=== PATIENT | male | born 1930 | race Caucasian/White ===

== ENCOUNTER 2017-01-06 08:18 | Inpatient (IN) | payer MEDICARE ==
[~2017-01-06] VITALS: Ht 170.2 cm; Wt 69.9 kg
[2017-01-06 08:49] LABS: BASO # 0.1 x10^3/uL (0.0-0.2); BASO % 1 % (0-3); EOS # 0.3 x10^3/uL (0.0-0.7); EOS % 3 % (0-3); HEMATOCRIT 24.8 % (39.0-53.0); HEMOGLOBIN 8.2 g/dL (13.0-17.5); LYMPH # 1.4 x10^3/uL (1.0-4.8); LYMPH % 17 % (24-48); MEAN CORPUSCULAR HEMOGLOBIN 30 pg (25-35); MEAN CORPUSCULAR HGB CONC 33 g/dL (31-37); MEAN CORPUSCULAR VOLUME 92 fL (79-100); MONO # 0.5 x10^3/uL (0.0-1.1); MONO % 7 % (0-9); NEUT # 5.8 x10^3uL (1.8-7.7); NEUT % 71 % (31-73); PLATELET COUNT 324 x10^3/uL (140-400); RED BLOOD COUNT 2.71 x10^6/uL (4.30-5.70); RED CELL DISTRIBUTION WIDTH 16.9 % (11.5-14.5); WHITE BLOOD COUNT 8.2 x10^3/uL (4.0-11.0)
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
--- NOTE | 2017-01-06 08:56 | EKG ---
[address] [address] Test Date: 2017-01-06 Test Time: 08:35:18 Pat Name: NICKY DEE Department: Room: Gender: M Remote Ruby On Rails Developer: : [id number] Requested By: RHONDA SPRINGER Order Number: [id number] Reading MD: Vitor Cohen Measurements Intervals [place] Rate: 54 P: 0 MN: 172 QRS: -48 QRSD: 110 T: 19 QT: 444 QTc: 423 Interpretive Statements SINUS RHYTHM ABNORMAL LEFT AXIS DEVIATION LOW LIMB LEAD VOLTAGE LEFT ANTERIOR FASCICULAR BLOCK QRS(T) CONTOUR ABNORMALITY CONSIDER ANTEROSEPTAL MYOCARDIAL DAMAGE ABNORMAL ECG RI6.01 No previous ECG available for comparison Electronically Signed On 01-24-2017 10:46:34 CDT by Vitor Cohen
[2017-01-06 09:01] LABS: ALBUMIN 2.5 g/dL (3.4-5.0); ALBUMIN/GLOBULIN RATIO 0.9 (1.0-1.7); CALCIUM 8.1 mg/dL (8.5-10.1); GFR 31.8; MAGNESIUM 1.9 mg/dL (1.8-2.4); POTASSIUM 5.4 mmol/L (3.5-5.1); TOTAL BILIRUBIN 0.2 mg/dL (0.2-1.0); TOTAL PROTEIN 5.4 g/dL (6.4-8.2)
[2017-01-06] MEDS ORDERED: ALLO100T PO (09:13)
[2017-01-06] MEDS ORDERED: FINA5TAB4 PO (09:13)
[2017-01-06] MEDS ORDERED: ASCO500T3 PO (09:13)
[2017-01-06] MEDS ORDERED: MIRT30TA3 PO (09:13)
[2017-01-06] MEDS ORDERED: RISP1TAB3 PO (09:13)
[2017-01-06] MEDS ORDERED: COLE5PAC3 PO (09:13)
[2017-01-06] MEDS ORDERED: IV NORMAL SALINE 500ML 500 ML IV ONE (09:30)
[2017-01-06] MEDS ORDERED: MAG355OR12 PO (09:32)
[2017-01-06] MEDS ORDERED: ACET325T9 PO (09:32)
[2017-01-06] MEDS ORDERED: METH250T PO (09:32)
[2017-01-06] MEDS ORDERED: MAGN400O7 PO (09:32)
[2017-01-06] MEDS ORDERED: WARF-78 PO (09:32)
[2017-01-06] MEDS ORDERED: SILV20CR14 TP (09:32)
[2017-01-06] MEDS ORDERED: IPRA3AMP NEB (09:32)
[2017-01-06] MEDS ORDERED: SERT25TA PO (09:32)
[2017-01-06] MEDS ORDERED: BISA10SU55 RC (09:32)
[2017-01-06] MEDS ORDERED: NITR0.4T22 SL (09:32)
[2017-01-06] MEDS ORDERED: MULT1TAB52 PO (09:32)
[2017-01-06] MEDS ORDERED: TAMS0.4C97 PO (09:32)
[2017-01-06] MEDS ORDERED: AMIN30LI PO (09:59)
[2017-01-06] MEDS ORDERED: SODIUM POLYSTYRENE SULFONATE 15 GM/60 ML ORAL.SUSP. PO ONE (10:00)
[2017-01-06 10:41] LABS: BILIRUBIN,URINE NEG (NEG); CLARITY,URINE HAZY; COLOR,URINE YELLOW; GLUCOSE,URINE NEG (NEG); NITRITE,URINE NEG (NEG); RBC,URINE RARE /HPF (0-2); UROBILINOGEN,URINE 0.2 mg/dL (0.2 mg/dL)
[2017-01-06 10:42] LABS: BACTERIA,URINE 0 /HPF (0-FEW); SQUAMOUS EPITHELIAL CELL,UR OCC /LPF
[2017-01-06 11:35] VITALS: BP 132/54
[2017-01-06] MEDS ORDERED: BISACODYL 10 MG SUPP.RECT RC PRN (12:45)
[2017-01-06] MEDS ORDERED: IPRATRPIUM/ALBUTEROL 0.5/2.5MG 3 ML NEBU. NEB PRN (12:45)
[2017-01-06] MEDS ORDERED: MAGNESIUM HYDROXIDE 2,400 MG/30 ML ORAL.SUSP. PO PRN (12:45)
[2017-01-06] MEDS ORDERED: NITROGLYCERIN SUBLINGUAL 0.4 MG BOTTLE OF 25. SL PRN (12:45)
[2017-01-06] MEDS ORDERED: ACETAMINOPHEN 325 MG TABLET PO PRN (12:45)
[2017-01-06] MEDS ORDERED: MAG HYDROX/AL HYDROX/SIMETH 30 ML ORAL.SUSP PO PRN (12:45)
[2017-01-06] MEDS ORDERED: WARFARIN 5 MG TABLET. PO SCH (16:00)
[2017-01-06 16:36] VITALS: BP 175/71
[2017-01-06] MEDS: ASCORBIC ACID 500 MG TABLET PO SCH (19:33)
[2017-01-06] MEDS: risperiDONE 1 MG TABLET. PO SCH (19:33)
[2017-01-06] MEDS: COLESTIPOL HCL 1 GM TABLET PO SCH (19:33)
[2017-01-06] MEDS: MIRTAZAPINE 30 MG TABLET PO SCH (19:33)
[2017-01-06] MEDS: silver sulfADIAZINE 1% CREAM 50GM JAR. TP SCH (21:00)
[2017-01-06] MEDS: METHYLDOPA 250 MG TABLET PO SCH (21:00)
--- NOTE | 2017-01-06 22:55 | PDOC ---
Exam Gonzales Demential Exam: Gonzales Note: Please also refer to the separate dictated note~for this date of service dictated separately.~Patient seen individually. Discussed the patient with Nursing staff reviewed the chart.~Reviewed interim history and current functioning. Reviewed vital signs,~Labs/ Radiology~and current medications noted below. Continue current treatment with the changes noted in the dictated addendum note Assessment: Vital Signs: Vital Signs Date Time Temp Pulse Resp B/P (MAP) Pulse Ox O2 Delivery O2 Flow Rate FiO2 01/06/17 16:36 98.0 77 18 175/71 (105) 98 01/06/17 08:20 Room Air I&O Intake and Output 01/07/17 07:00 Intake Total 1100 ml Balance 1100 ml Intake Oral 600 ml IV Total 500 ml Labs: Laboratory Tests Test 01/06/17 08:25 01/06/17 09:50 White Blood Count 8.2 x10^3/uL (4.0-11.0) Red Blood Count 2.71 x10^6/uL (4.30-5.70) L Hemoglobin 8.2 g/dL (13.0-17.5) L Hematocrit 24.8 % (39.0-53.0) L Mean Corpuscular Volume 92 fL (79-100) Mean Corpuscular Hemoglobin 30 pg (25-35) Mean Corpuscular Hemoglobin Concent 33 g/dL (31-37) Red Cell Distribution Width 16.9 % (11.5-14.5) H Platelet Count 324 x10^3/uL (140-400) Neutrophils (%) (Auto) 71 % (31-73) Lymphocytes (%) (Auto) 17 % (24-48) L Monocytes (%) (Auto) 7 % (0-9) Eosinophils (%) (Auto) 3 % (0-3) Basophils (%) (Auto) 1 % (0-3) Neutrophils # (Auto) 5.8 x10^3uL (1.8-7.7) Lymphocytes # (Auto) 1.4 x10^3/uL (1.0-4.8) Monocytes # (Auto) 0.5 x10^3/uL (0.0-1.1) Eosinophils # (Auto) 0.3 x10^3/uL (0.0-0.7) Basophils # (Auto) 0.1 x10^3/uL (0.0-0.2) Prothrombin Time 34.6 SEC (9.4-11.4) H Prothrombin Time INR 3.4 (0.9-1.1) H Sodium Level 141 mmol/L (136-145) Potassium Level 5.4 mmol/L (3.5-5.1) H Chloride Level 111 mmol/L (98-107) H Carbon Dioxide Level 21 mmol/L (21-32) Anion Gap 9 (6-14) Blood Urea Nitrogen 35 mg/dL (8-26) H Creatinine 2.0 mg/dL (0.7-1.3) H Estimated GFR (Cockcroft-Gault) 31.8 BUN/Creatinine Ratio 18 (6-20) Glucose Level 85 mg/dL (70-99) Calcium Level 8.1 mg/dL (8.5-10.1) L Magnesium Level 1.9 mg/dL (1.8-2.4) Iron Level 33 ug/dL (65-175) L Total Iron Binding Capacity 165 ug/dL (250-450) L Iron Saturation 20 % (15-34) Total Bilirubin 0.2 mg/dL (0.2-1.0) Aspartate Amino Transferase (AST) 31 U/L (15-37) Alanine Aminotransferase (ALT) 12 U/L (16-63) L Alkaline Phosphatase 71 U/L (46-116) Total Protein 5.4 g/dL (6.4-8.2) L Albumin 2.5 g/dL (3.4-5.0) L Albumin/Globulin Ratio 0.9 (1.0-1.7) L Thyroid Stimulating Hormone (TSH) 4.683 uIU/mL (0.358-3.740) Urine Collection Type Void Urine Color Yellow Urine Clarity Hazy Urine pH 5.0 Urine Specific [place] 1.010 Urine Protein Neg (NEG-TRACE) Urine Glucose (UA) Neg mg/dL (NEG) Urine Ketones (Stick) Neg mg/dL (NEG) Urine Blood Neg (NEG) Urine Nitrite Neg (NEG) Urine Bilirubin Neg (NEG) Urine Urobilinogen Dipstick 0.2 mg/dL (0.2 mg/dL) Urine Leukocyte Esterase Small (NEG) Urine RBC Rare /HPF (0-2) Urine WBC 5-10 /HPF (0-4) Urine Squamous Epithelial Cells Occ /LPF Urine Bacteria 0 /HPF (0-FEW) Current Medications: Meds: Current Medications Sodium Chloride 500 ml @ 0 mls/hr 1X ONCE IV Last administered on 01/06/17 09 :45; Start 01/06/17 at 09:30; Stop 01/06/17 at 09:55; Status DC Sodium Polystyrene Sulfonate (Kayexalate) 15 gm 1X ONCE PO Last administered on 01/06/17 10:40; Start 01/06/17 at 10:00; Stop 01/06/17 at 10:01; Status DC Influenza Virus Vaccine Quadrival (Fluarix Quad [id number] Syringe) 0.5 ml 1X ONCE VAX IM ; Start 01/07/17 at 09:00; Stop 01/07/17 at 09:01 Olanzapine (ZyPREXA ZYDIS) 2.5 mg PRN Q2HR PRN PO Agitation ; Start 01/06/17 at 12:30 Acetaminophen (Tylenol) 650 mg PRN Q4HRS PRN PO PAIN / TEMP; Start 01/06/17 at 12:45 Allopurinol (Zyloprim) 100 mg DAILY PO ; Start 01/07/17 at 09:00 Ascorbic Acid (Vitamin C) 500 mg BID PO Last administered on 01/06/17 19:33; Start 01/06/17 at 21:00 Bisacodyl (Dulcolax Supp) 10 mg PRN DAILY PRN RC CONSTIPATION; Start 01/06/17 at 12:45 Finasteride (Proscar) 5 mg DAILY PO ; Start 01/07/17 at 09:00 Albuterol/ Ipratropium (Duoneb) 3 ml PRN TID PRN NEB WHEEZING; Start 01/06/17 at 12:45 Al Hydroxide/Mg Hydroxide (Mylanta Plus Xs) 10 ml PRN Q2HR PRN PO INDIGESTION; Start 01/06/17 at 12:45 Magnesium Hydroxide (Milk Of Magnesia) 400 mg PRN QHS PRN PO CONSTIPATION; Start 01/06/17 at 12:45 Methyldopa (Aldomet) 500 mg BID PO ; Start 01/06/17 at 21:00 Nitroglycerin (Nitrostat) 0.4 mg PRN Q5MIN PRN SL CHEST PAIN; Start 01/06/17 at 12:45 Silver Sulfadiazine (Silvadene) 1 zoe BID TP ; Start 01/06/17 at 21:00 Tamsulosin HCl (Flomax) 0.4 mg DAILY PO ; Start 01/07/17 at 09:00 Warfarin Sodium (Coumadin) 5 mg DAILY16 PO ; Start 01/06/17 at 16:00; Stop 01/06 at 16:00; Status DC Non-Formulary Medication 30 ml DAILY PO ; Start 01/07/17 at 09:00; Stop at 09:00; Status DC Colestipol HCl (Colestid) 5 gm BID PO Last administered on 01/06/17 19:33; Start 01/06/17 at 21:00 Mirtazapine (Remeron) 30 mg QHS PO Last administered on 01/06/17 19:33; Start 01/06/17 at 21:00 Risperidone (RisperDAL) 1 mg BID PO Last administered on 01/06/17 19:33; Start 01/06/17 at 21:00 Sertraline HCl (Zoloft) 50 mg DAILY PO ; Start 01/07/17 at 09:00 Multivitamins/ Calcium (Thera-M Plus) 1 tab DAILY PO ; Start 01/07/17 at 09:00 Active Scripts Active Reported Prosource Plus Liquid Packet (Amino Ac/Protein Hydr/Whey Pro) 30 Ml Liquid.pkt 30 Ml PO DAILY Dulcolax (Bisacodyl) 10 Mg Supp.rect 10 Mg RC PRN DAILY PRN Silvadene (Silver Sulfadiazine) 20 Gm Cream..g. 20 Gm TP BID NITROGLYCERIN SubLingual (Nitroglycerin) 0.4 Mg Tab.subl 0.4 Mg SL PRN Q5MIN PRN May repeat x3 doses Maalox Maximum Strength Susp (Mag Hydrox/Al Hydrox/Simeth) 355 Ml Oral.susp 10 Ml PO PRN Q2HR PRN Duoneb 0.5-3(2.5) Mg/3 Ml (Albuterol/Ipratropium) 3 Ml Ampul.neb 3 Ml NEB PRN TID PRN Milk Of Magnesia (Magnesium Hydroxide) 400 Mg/5 Ml Oral.susp 400 Mg PO PRN Q3DAYS PRN Tylenol (Acetaminophen) 325 Mg Tablet 650 Mg PO PRN Q4HRS PRN Coumadin (Warfarin Sodium) 5 Mg Tablet 5 Mg PO DAILY16 Multivitamins (Multivitamin) 1 Each Tablet 1 Each PO Zoloft (Sertraline Hcl) 25 Mg Tablet 50 Mg PO DAILY Flomax (Tamsulosin Hcl) 0.4 Mg Cap.er.24h 1 Cap PO DAILY Methyldopa 250 Mg Tablet 500 Mg PO BID Hold for SBP <110 or pulse < 55 Mirtazapine 30 Mg Tablet 1 Tab PO QHS Finasteride 5 Mg Tablet 1 Tab PO DAILY Allopurinol 100 Mg Tablet 1 Tab PO DAILY Ascorbic Acid 500 Mg Tablet 500 Mg PO BID Colestipol Hcl 5 Gm Packet 5 Gm PO BID Risperidone 1 Mg Tablet 1 Tab PO BID Diagnosis: Problems: (1) Aggressive behavior (2) Hyperkalemia DIANE KABA MD Jan 06, 2017 22:55
[2017-01-06 23:11] LABS: T3 TOTAL 58 ng/dL (71-180); THYROXINE 5.1 ug/dL (4.5-12.0)
[2017-01-07 00:08] LABS: HEMOGLOBIN A1C 4.6 % (4.8-5.6)
[2017-01-07 05:53] VITALS: BP 155/63
[2017-01-07 07:43] LABS: ALBUMIN 2.5 g/dL (3.4-5.0); ALBUMIN/GLOBULIN RATIO 0.8 (1.0-1.7); GFR 31.8; POTASSIUM 4.8 mmol/L (3.5-5.1); TOTAL BILIRUBIN 0.3 mg/dL (0.2-1.0); TOTAL PROTEIN 5.6 g/dL (6.4-8.2)
[2017-01-07] MEDS ORDERED: PROTEIN HYDR PO SCH (09:00)
[2017-01-07] MEDS ORDERED: [UNRECOGNIZED DRUG - OTHER] PO SCH (09:00)
[2017-01-07] MEDS ORDERED: FLU VACC QS2017-18 (36MOS+)/PF 0.5 ML SYRINGE. VAX IM ONE (09:00)
[2017-01-07] MEDS ORDERED: WHEY PRO PO SCH (09:00)
[2017-01-07] MEDS ORDERED: AMINO AC PO SCH (09:00)
[2017-01-07] MEDS: ASCORBIC ACID 500 MG TABLET PO SCH ×2 (09:28→19:46)
[2017-01-07] MEDS: COLESTIPOL HCL 1 GM TABLET PO SCH ×2 (09:28→19:45)
[2017-01-07] MEDS: risperiDONE 1 MG TABLET. PO SCH ×2 (09:28→19:45)
[2017-01-07] MEDS: ALLOPURINOL 100 MG TABLET. PO SCH (09:31)
[2017-01-07] MEDS: SERTRALINE 50 MG TABLET. PO SCH (09:31)
[2017-01-07] MEDS: TAMSULOSIN 0.4 MG CAP.ER.24H. PO SCH (09:31)
[2017-01-07] MEDS: MULTIVITAMIN with MINERAL TABLET. PO SCH (09:31)
[2017-01-07] MEDS: FINASTERIDE 5 MG TABLET PO SCH (09:31)
[2017-01-07] MEDS: METHYLDOPA 250 MG TABLET PO SCH ×2 (09:33→19:42)
[2017-01-07] MEDS: silver sulfADIAZINE 1% CREAM 50GM JAR. TP SCH ×2 (09:33→19:50)
[2017-01-07 16:29] VITALS: BP 138/68
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
[2017-01-07] MEDS: MIRTAZAPINE 30 MG TABLET PO SCH (19:46)
[2017-01-07] MEDS: DIVALPROEX ER 250 MG TAB.ER.24H. PO SCH (19:47)
--- NOTE | 2017-01-07 21:00 | PDOC ---
Exam Gonzales Demential Exam: Gonzales Note: Please also refer to the separate dictated note~for this date of service dictated separately.~Patient seen individually. Discussed the patient with Nursing staff reviewed the chart.~Reviewed interim history and current functioning. Reviewed vital signs,~Labs/ Radiology~and current medications noted below. Continue current treatment with the changes noted in the dictated addendum note Assessment: Vital Signs: Vital Signs Date Time Temp Pulse Resp B/P (MAP) Pulse Ox O2 Delivery O2 Flow Rate FiO2 01/07/17 19:42 80 138/68 01/07/17 16:29 97.6 16 93 01/07/17 05:53 Room Air I&O Intake and Output 01/08/17 07:00 Intake Total 960 ml Balance 960 ml Intake Oral 960 ml Labs: Laboratory Tests Test 01/07/17 06:44 01/07/17 11:18 Sodium Level 141 mmol/L (136-145) Potassium Level 4.8 mmol/L (3.5-5.1) Chloride Level 112 mmol/L (98-107) H Carbon Dioxide Level 21 mmol/L (21-32) Anion Gap 8 (6-14) Blood Urea Nitrogen 33 mg/dL (8-26) H Creatinine 2.0 mg/dL (0.7-1.3) H Estimated GFR (Cockcroft-Gault) 31.8 BUN/Creatinine Ratio 17 (6-20) Glucose Level 89 mg/dL (70-99) Calcium Level 8.0 mg/dL (8.5-10.1) L Total Bilirubin 0.3 mg/dL (0.2-1.0) Aspartate Amino Transferase (AST) 15 U/L (15-37) Alanine Aminotransferase (ALT) 14 U/L (16-63) L Alkaline Phosphatase 69 U/L (46-116) Total Protein 5.6 g/dL (6.4-8.2) L Albumin 2.5 g/dL (3.4-5.0) L Albumin/Globulin Ratio 0.8 (1.0-1.7) L Triglycerides Level 83 mg/dL (0-150) Cholesterol Level 114 mg/dL (0-200) LDL Cholesterol, Calculated 39 mg/dL (0-100) VLDL Cholesterol, Calculated 16 mg/dL (0-40) Non-HDL Cholesterol Calculated 55 mg/dL (0-129) HDL Cholesterol 59 mg/dL (40-60) Cholesterol/HDL Ratio 1.0 Prothrombin Time 33.2 SEC (9.4-11.4) H Prothrombin Time INR 3.3 (0.9-1.1) H Current Medications: Meds: Current Medications Sodium Chloride 500 ml @ 0 mls/hr 1X ONCE IV Last administered on 01/06/17 09 :45; Start 01/06/17 at 09:30; Stop 01/06/17 at 09:55; Status DC Sodium Polystyrene Sulfonate (Kayexalate) 15 gm 1X ONCE PO Last administered on 01/06/17 10:40; Start 01/06/17 at 10:00; Stop 01/06/17 at 10:01; Status DC Influenza Virus Vaccine Quadrival (Fluarix Quad [id number] Syringe) 0.5 ml 1X ONCE VAX IM Last administered on 01/07/17 18:12; Start 01/07/17 at 09:00; Stop 01/07/17 at 09:01; Status DC Olanzapine (ZyPREXA ZYDIS) 2.5 mg PRN Q2HR PRN PO Agitation ; Start 01/06/17 at 12:30 Acetaminophen (Tylenol) 650 mg PRN Q4HRS PRN PO PAIN / TEMP; Start 01/06/17 at 12:45 Allopurinol (Zyloprim) 100 mg DAILY PO Last administered on 01/07/17 09:31; Start 01/07/17 at 09:00 Ascorbic Acid (Vitamin C) 500 mg BID PO Last administered on 01/07/17 19:46; Start 01/06/17 at 21:00 Bisacodyl (Dulcolax Supp) 10 mg PRN DAILY PRN RC CONSTIPATION; Start 01/06/17 at 12:45 Finasteride (Proscar) 5 mg DAILY PO Last administered on 01/07/17 09:31; Start 01/07/17 at 09:00 Albuterol/ Ipratropium (Duoneb) 3 ml PRN TID PRN NEB WHEEZING; Start 01/06/17 at 12:45 Al Hydroxide/Mg Hydroxide (Mylanta Plus Xs) 10 ml PRN Q2HR PRN PO INDIGESTION; Start 01/06/17 at 12:45 Magnesium Hydroxide (Milk Of Magnesia) 400 mg PRN QHS PRN PO CONSTIPATION; Start 01/06/17 at 12:45 Methyldopa (Aldomet) 500 mg BID PO Last administered on 01/07/17 19:42; Start 01/06/17 at 21:00 Nitroglycerin (Nitrostat) 0.4 mg PRN Q5MIN PRN SL CHEST PAIN; Start 01/06/17 at 12:45 Silver Sulfadiazine (Silvadene) 1 zoe BID TP Last administered on 01/07/17 19: 50; Start 01/06/17 at 21:00 Tamsulosin HCl (Flomax) 0.4 mg DAILY PO Last administered on 01/07/17 09:31; Start 01/07/17 at 09:00 Warfarin Sodium (Coumadin) 5 mg DAILY16 PO ; Start 01/06/17 at 16:00; Stop 01/06 at 16:00; Status DC Non-Formulary Medication 30 ml DAILY PO ; Start 01/07/17 at 09:00; Stop at 09:00; Status DC Colestipol HCl (Colestid) 5 gm BID PO Last administered on 01/07/17 19:45; Start 01/06/17 at 21:00 Mirtazapine (Remeron) 30 mg QHS PO Last administered on 01/07/17 19:46; Start 01/06/17 at 21:00 Risperidone (RisperDAL) 1 mg BID PO Last administered on 01/07/17 19:45; Start 01/06/17 at 21:00 Sertraline HCl (Zoloft) 50 mg DAILY PO Last administered on 01/07/17 09:31; Start 01/07/17 at 09:00 Multivitamins/ Calcium (Thera-M Plus) 1 tab DAILY PO Last administered on 09:31; Start 01/07/17 at 09:00 Warfarin Sodium (Coumadin Per Pharmacy) 1 each PRN DAILY PRN MC SEE COMMENTS Last administered on 01/07/17 11:46; Start 01/07/17 at 11:00 Warfarin Sodium (Coumadin - No Dose Today) 1 each 1X WARF ONCE MC Last administered on 01/07/17 16:00; Start 01/07/17 at 16:00; Stop 01/07/17 at 16:01 ; Status DC Levothyroxine Sodium (Synthroid) 25 mcg DAILY07 PO ; Start 01/08/17 at 07:00 Divalproex Sodium (Depakote Er) 250 mg QHS PO Last administered on 01/07/17t 19 :47; Start 01/07/17 at 21:00 Active Scripts Active Reported Prosource Plus Liquid Packet (Amino Ac/Protein Hydr/Whey Pro) 30 Ml Liquid.pkt 30 Ml PO DAILY Dulcolax (Bisacodyl) 10 Mg Supp.rect 10 Mg RC PRN DAILY PRN Silvadene (Silver Sulfadiazine) 20 Gm Cream..g. 20 Gm TP BID NITROGLYCERIN SubLingual (Nitroglycerin) 0.4 Mg Tab.subl 0.4 Mg SL PRN Q5MIN PRN May repeat x3 doses Maalox Maximum Strength Susp (Mag Hydrox/Al Hydrox/Simeth) 355 Ml Oral.susp 10 Ml PO PRN Q2HR PRN Duoneb 0.5-3(2.5) Mg/3 Ml (Albuterol/Ipratropium) 3 Ml Ampul.neb 3 Ml NEB PRN TID PRN Milk Of Magnesia (Magnesium Hydroxide) 400 Mg/5 Ml Oral.susp 400 Mg PO PRN Q3DAYS PRN Tylenol (Acetaminophen) 325 Mg Tablet 650 Mg PO PRN Q4HRS PRN Coumadin (Warfarin Sodium) 5 Mg Tablet 5 Mg PO DAILY16 Multivitamins (Multivitamin) 1 Each Tablet 1 Each PO Zoloft (Sertraline Hcl) 25 Mg Tablet 50 Mg PO DAILY Flomax (Tamsulosin Hcl) 0.4 Mg Cap.er.24h 1 Cap PO DAILY Methyldopa 250 Mg Tablet 500 Mg PO BID Hold for SBP <110 or pulse < 55 Mirtazapine 30 Mg Tablet 1 Tab PO QHS Finasteride 5 Mg Tablet 1 Tab PO DAILY Allopurinol 100 Mg Tablet 1 Tab PO DAILY Ascorbic Acid 500 Mg Tablet 500 Mg PO BID Colestipol Hcl 5 Gm Packet 5 Gm PO BID Risperidone 1 Mg Tablet 1 Tab PO BID Diagnosis: Problems: (1) Aggressive behavior (2) Bipolar affective, mixed, sev w/ psych (3) Anxiety disorder (4) Dementia, vascular, with delusions (5) Dementia, vascular, with depression (6) Major depressive disorder, recurrent episode (7) Psychotic depression (8) Impulse control disorder SENDY,MAN M MD Jan 07, 2017 21:00
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
[2017-01-08 05:40] VITALS: BP 168/63
[2017-01-08] MEDS: LEVOTHYROXINE 25 MCG TABLET. PO SCH (06:37)
[2017-01-08] MEDS: TAMSULOSIN 0.4 MG CAP.ER.24H. PO SCH (09:31)
[2017-01-08] MEDS: METHYLDOPA 250 MG TABLET PO SCH ×2 (09:31→22:52)
[2017-01-08] MEDS: FINASTERIDE 5 MG TABLET PO SCH (09:31)
[2017-01-08] MEDS: ASCORBIC ACID 500 MG TABLET PO SCH ×2 (09:31→22:50)
[2017-01-08] MEDS: risperiDONE 1 MG TABLET. PO SCH ×2 (09:31→22:50)
[2017-01-08] MEDS: SERTRALINE 50 MG TABLET. PO SCH (09:31)
[2017-01-08] MEDS: MULTIVITAMIN with MINERAL TABLET. PO SCH (09:31)
[2017-01-08] MEDS: COLESTIPOL HCL 1 GM TABLET PO SCH ×2 (09:32→22:51)
[2017-01-08] MEDS: ALLOPURINOL 100 MG TABLET. PO SCH (09:32)
[2017-01-08] MEDS: silver sulfADIAZINE 1% CREAM 50GM JAR. TP SCH ×2 (09:51→21:00)
[2017-01-08] MEDS ORDERED: WARFARIN 5 MG TABLET. PO ONE (16:00)
[2017-01-08 16:43] VITALS: BP 168/76
--- NOTE | 2017-01-08 20:55 | PDOC ---
Exam Gonzales Demential Exam: Gonzales Note: Please also refer to the separate dictated note~for this date of service dictated separately.~Patient seen individually. Discussed the patient with Nursing staff reviewed the chart.~Reviewed interim history and current functioning. Reviewed vital signs,~Labs/ Radiology~and current medications noted below. Continue current treatment with the changes noted in the dictated addendum note Assessment: Vital Signs: Vital Signs Date Time Temp Pulse Resp B/P (MAP) Pulse Ox O2 Delivery O2 Flow Rate FiO2 01/08/17 16:43 97.5 55 18 168/76 (106) 100 01/08/17 05:40 Room Air I&O Intake and Output 01/09/17 07:00 Intake Total 480 ml Balance 480 ml Intake Oral 480 ml Labs: Laboratory Tests Test 01/08/17 07:08 Prothrombin Time 26.7 SEC (9.4-11.4) H Prothrombin Time INR 2.6 (0.9-1.1) H Current Medications: Meds: Current Medications Sodium Chloride 500 ml @ 0 mls/hr 1X ONCE IV Last administered on 01/06/17 09 :45; Start 01/06/17 at 09:30; Stop 01/06/17 at 09:55; Status DC Sodium Polystyrene Sulfonate (Kayexalate) 15 gm 1X ONCE PO Last administered on 01/06/17 10:40; Start 01/06/17 at 10:00; Stop 01/06/17 at 10:01; Status DC Influenza Virus Vaccine Quadrival (Fluarix Quad [id number] Syringe) 0.5 ml 1X ONCE VAX IM Last administered on 01/07/17 18:12; Start 01/07/17 at 09:00; Stop 01/07/17 at 09:01; Status DC Olanzapine (ZyPREXA ZYDIS) 2.5 mg PRN Q2HR PRN PO Agitation ; Start 01/06/17 at 12:30 Acetaminophen (Tylenol) 650 mg PRN Q4HRS PRN PO PAIN / TEMP; Start 01/06/17 at 12:45 Allopurinol (Zyloprim) 100 mg DAILY PO Last administered on 01/08/17 09:32; Start 01/07/17 at 09:00 Ascorbic Acid (Vitamin C) 500 mg BID PO Last administered on 01/08/17 09:31; Start 01/06/17 at 21:00 Bisacodyl (Dulcolax Supp) 10 mg PRN DAILY PRN RC CONSTIPATION; Start 01/06/17 at 12:45 Finasteride (Proscar) 5 mg DAILY PO Last administered on 01/08/17 09:31; Start 01/07/17 at 09:00 Albuterol/ Ipratropium (Duoneb) 3 ml PRN TID PRN NEB WHEEZING; Start 01/06/17 at 12:45 Al Hydroxide/Mg Hydroxide (Mylanta Plus Xs) 10 ml PRN Q2HR PRN PO INDIGESTION; Start 01/06/17 at 12:45 Magnesium Hydroxide (Milk Of Magnesia) 400 mg PRN QHS PRN PO CONSTIPATION; Start 01/06/17 at 12:45 Methyldopa (Aldomet) 500 mg BID PO Last administered on 01/08/17 09:31; Start 01/06/17 at 21:00 Nitroglycerin (Nitrostat) 0.4 mg PRN Q5MIN PRN SL CHEST PAIN; Start 01/06/17 at 12:45 Silver Sulfadiazine (Silvadene) 1 zoe BID TP Last administered on 01/08/17 09: 51; Start 01/06/17 at 21:00 Tamsulosin HCl (Flomax) 0.4 mg DAILY PO Last administered on 01/08/17 09:31; Start 01/07/17 at 09:00 Warfarin Sodium (Coumadin) 5 mg DAILY16 PO ; Start 01/06/17 at 16:00; Stop 01/06 at 16:00; Status DC Non-Formulary Medication 30 ml DAILY PO ; Start 01/07/17 at 09:00; Stop at 09:00; Status DC Colestipol HCl (Colestid) 5 gm BID PO Last administered on 01/07/17 19:45; Start 01/06/17 at 21:00; Stop 01/08/17 at 08:58; Status DC Mirtazapine (Remeron) 30 mg QHS PO Last administered on 01/07/17 19:46; Start 01/06/17 at 21:00 Risperidone (RisperDAL) 1 mg BID PO Last administered on 01/08/17 09:31; Start 01/06/17 at 21:00 Sertraline HCl (Zoloft) 50 mg DAILY PO Last administered on 01/08/17 09:31; Start 01/07/17 at 09:00 Multivitamins/ Calcium (Thera-M Plus) 1 tab DAILY PO Last administered on 09:31; Start 01/07/17 at 09:00 Warfarin Sodium (Coumadin Per Pharmacy) 1 each PRN DAILY PRN MC SEE COMMENTS Last administered on 01/08/17 13:14; Start 01/07/17 at 11:00 Warfarin Sodium (Coumadin - No Dose Today) 1 each 1X WARF ONCE MC Last administered on 01/07/17 16:00; Start 01/07/17 at 16:00; Stop 01/07/17 at 16:01 ; Status DC Levothyroxine Sodium (Synthroid) 25 mcg DAILY07 PO Last administered on 06:37; Start 01/08/17 at 07:00 Divalproex Sodium (Depakote Er) 250 mg QHS PO Last administered on 01/07/17 19 :47; Start 01/07/17 at 21:00 Colestipol HCl (Colestid) 5 gm BID@0700,2100 PO Last administered on 01/08/17 09:32; Start 01/08/17 at 09:00 Warfarin Sodium (Coumadin) 5 mg 1X WARF ONCE PO Last administered on 17:31; Start 01/08/17 at 16:00; Stop 01/08/17 at 16:01; Status DC Active Scripts Active Reported Prosource Plus Liquid Packet (Amino Ac/Protein Hydr/Whey Pro) 30 Ml Liquid.pkt 30 Ml PO DAILY Dulcolax (Bisacodyl) 10 Mg Supp.rect 10 Mg RC PRN DAILY PRN Silvadene (Silver Sulfadiazine) 20 Gm Cream..g. 20 Gm TP BID NITROGLYCERIN SubLingual (Nitroglycerin) 0.4 Mg Tab.subl 0.4 Mg SL PRN Q5MIN PRN May repeat x3 doses Maalox Maximum Strength Susp (Mag Hydrox/Al Hydrox/Simeth) 355 Ml Oral.susp 10 Ml PO PRN Q2HR PRN Duoneb 0.5-3(2.5) Mg/3 Ml (Albuterol/Ipratropium) 3 Ml Ampul.neb 3 Ml NEB PRN TID PRN Milk Of Magnesia (Magnesium Hydroxide) 400 Mg/5 Ml Oral.susp 400 Mg PO PRN Q3DAYS PRN Tylenol (Acetaminophen) 325 Mg Tablet 650 Mg PO PRN Q4HRS PRN Coumadin (Warfarin Sodium) 5 Mg Tablet 5 Mg PO DAILY16 Multivitamins (Multivitamin) 1 Each Tablet 1 Each PO Zoloft (Sertraline Hcl) 25 Mg Tablet 50 Mg PO DAILY Flomax (Tamsulosin Hcl) 0.4 Mg Cap.er.24h 1 Cap PO DAILY Methyldopa 250 Mg Tablet 500 Mg PO BID Hold for SBP <110 or pulse < 55 Mirtazapine 30 Mg Tablet 1 Tab PO QHS Finasteride 5 Mg Tablet 1 Tab PO DAILY Allopurinol 100 Mg Tablet 1 Tab PO DAILY Ascorbic Acid 500 Mg Tablet 500 Mg PO BID Colestipol Hcl 5 Gm Packet 5 Gm PO BID Risperidone 1 Mg Tablet 1 Tab PO BID Diagnosis: Problems: (1) Aggressive behavior (2) Bipolar affective, mixed, sev w/ psych (3) Anxiety disorder (4) Dementia, vascular, with delusions (5) Dementia, vascular, with depression (6) Mild cognitive disorder (7) Major depressive disorder, recurrent episode (8) Psychotic depression (9) Impulse control disorder DIANE KABA MD Jan 08, 2017 20:55
[2017-01-08] MEDS: DIVALPROEX ER 250 MG TAB.ER.24H. PO SCH (22:50)
[2017-01-08] MEDS: MIRTAZAPINE 30 MG TABLET PO SCH (22:51)
--- NOTE | 2017-01-09 00:27 | PN ---
DATE: 01/07/2017 This late entry 01/07/2017 covers elements not covered in the initial not of 01/07/2017. I met with the patient evening of 01/07/2017. He has been a little more cooperative, still confused, paranoid, coming out more out of his room. REVIEW OF SYSTEMS: Ambulation impaired, in wheelchair, needs to sit or stand. No CV, , pulmonary, eye, ENT system symptoms on review. MENTAL STATUS EXAM: Oriented to himself and situation. Speech is coherent, has some latency. Abstraction fair, computation impaired, language function intact, attention span short. Mood and affect less labile, less psychotic. LABORATORY DATA: Reviewed. IMPRESSION: Unchanged from initial note of 01/07/2017. PLAN: Continue current psychotropics mentioned in my initial note including Risperdal, Remeron, Zoloft, and Depakote, which was added to 50 mg at bedtime of the ER. Check CBC, CMP, valproic acid level 01/10/2017. Reviewed drug interactions, risk/benefit ratio favors no further change. MAN Isaías KABA MD DR: LAURY/rosalva JOB#: [id number] / [id number]
[2017-01-09] MEDS: COLESTIPOL HCL 1 GM TABLET PO SCH ×3 (05:09→19:42)
[2017-01-09] MEDS: LEVOTHYROXINE 25 MCG TABLET. PO SCH ×2 (05:09→05:26)
[2017-01-09 05:44] VITALS: BP 154/58
[2017-01-09] MEDS: MULTIVITAMIN with MINERAL TABLET. PO SCH (07:33)
[2017-01-09] MEDS: TAMSULOSIN 0.4 MG CAP.ER.24H. PO SCH (07:33)
[2017-01-09] MEDS: ASCORBIC ACID 500 MG TABLET PO SCH ×2 (07:33→19:42)
[2017-01-09] MEDS: SERTRALINE 50 MG TABLET. PO SCH (07:33)
[2017-01-09] MEDS: risperiDONE 1 MG TABLET. PO SCH ×2 (07:33→19:42)
[2017-01-09] MEDS: FINASTERIDE 5 MG TABLET PO SCH (07:33)
[2017-01-09] MEDS: ALLOPURINOL 100 MG TABLET. PO SCH (07:33)
[2017-01-09] MEDS: METHYLDOPA 250 MG TABLET PO SCH ×2 (07:34→19:42)
[2017-01-09 15:51] VITALS: BP 149/70
[2017-01-09] MEDS ORDERED: WARFARIN 5 MG TABLET. PO ONE (16:00)
[2017-01-09] MEDS: MIRTAZAPINE 30 MG TABLET PO SCH (19:42)
[2017-01-09] MEDS: DIVALPROEX ER 250 MG TAB.ER.24H. PO SCH (19:42)
--- NOTE | 2017-01-09 20:42 | PDOC ---
Exam Gonzales Demential Exam: Gonzales Note: Please also refer to the separate dictated note~for this date of service dictated separately.~Patient seen individually. Discussed the patient with Nursing staff reviewed the chart.~Reviewed interim history and current functioning. Reviewed vital signs,~Labs/ Radiology~and current medications noted below. Continue current treatment with the changes noted in the dictated addendum note Assessment: Vital Signs: Vital Signs Date Time Temp Pulse Resp B/P (MAP) Pulse Ox O2 Delivery O2 Flow Rate FiO2 01/09/17 19:42 60 149/70 01/09/17 15:51 97.7 20 100 01/09/17 05:44 Room Air I&O Intake and Output 01/10/17 07:00 Intake Total 840 ml Balance 840 ml Intake Oral 840 ml # Bowel Movements 1 Labs: Laboratory Tests Test 01/09/17 06:27 Prothrombin Time 20.8 SEC (9.4-11.4) H Prothrombin Time INR 2.1 (0.9-1.1) H Current Medications: Meds: Current Medications Sodium Chloride 500 ml @ 0 mls/hr 1X ONCE IV Last administered on 01/06/17 09 :45; Start 01/06/17 at 09:30; Stop 01/06/17 at 09:55; Status DC Sodium Polystyrene Sulfonate (Kayexalate) 15 gm 1X ONCE PO Last administered on 01/06/17 10:40; Start 01/06/17 at 10:00; Stop 01/06/17 at 10:01; Status DC Influenza Virus Vaccine Quadrival (Fluarix Quad [id number] Syringe) 0.5 ml 1X ONCE VAX IM Last administered on 01/07/17 18:12; Start 01/07/17 at 09:00; Stop 01/07/17 at 09:01; Status DC Olanzapine (ZyPREXA ZYDIS) 2.5 mg PRN Q2HR PRN PO Agitation ; Start 01/06/17 at 12:30 Acetaminophen (Tylenol) 650 mg PRN Q4HRS PRN PO PAIN / TEMP; Start 01/06/17 at 12:45 Allopurinol (Zyloprim) 100 mg DAILY PO Last administered on 01/09/17 07:33; Start 01/07/17 at 09:00 Ascorbic Acid (Vitamin C) 500 mg BID PO Last administered on 01/09/17 19:42; Start 01/06/17 at 21:00 Bisacodyl (Dulcolax Supp) 10 mg PRN DAILY PRN RC CONSTIPATION; Start 01/06/17 at 12:45 Finasteride (Proscar) 5 mg DAILY PO Last administered on 01/09/17 07:33; Start 01/07/17 at 09:00 Albuterol/ Ipratropium (Duoneb) 3 ml PRN TID PRN NEB WHEEZING; Start 01/06/17 at 12:45 Al Hydroxide/Mg Hydroxide (Mylanta Plus Xs) 10 ml PRN Q2HR PRN PO INDIGESTION; Start 01/06/17 at 12:45 Magnesium Hydroxide (Milk Of Magnesia) 400 mg PRN QHS PRN PO CONSTIPATION; Start 01/06/17 at 12:45 Methyldopa (Aldomet) 500 mg BID PO Last administered on 01/09/17 19:42; Start 01/06/17 at 21:00 Nitroglycerin (Nitrostat) 0.4 mg PRN Q5MIN PRN SL CHEST PAIN; Start 01/06/17 at 12:45 Silver Sulfadiazine (Silvadene) 1 zoe BID TP Last administered on 01/08/17 09: 51; Start 01/06/17 at 21:00; Stop 01/08/17 at 22:55; Status DC Tamsulosin HCl (Flomax) 0.4 mg DAILY PO Last administered on 01/09/17 07:33; Start 01/07/17 at 09:00 Warfarin Sodium (Coumadin) 5 mg DAILY16 PO ; Start 01/06/17 at 16:00; Stop 01/06 at 16:00; Status DC Non-Formulary Medication 30 ml DAILY PO ; Start 01/07/17 at 09:00; Stop at 09:00; Status DC Colestipol HCl (Colestid) 5 gm BID PO Last administered on 01/07/17 19:45; Start 01/06/17 at 21:00; Stop 01/08/17 at 08:58; Status DC Mirtazapine (Remeron) 30 mg QHS PO Last administered on 01/09/17 19:42; Start 01/06/17 at 21:00 Risperidone (RisperDAL) 1 mg BID PO Last administered on 01/09/17 19:42; Start 01/06/17 at 21:00 Sertraline HCl (Zoloft) 50 mg DAILY PO Last administered on 01/09/17 07:33; Start 01/07/17 at 09:00 Multivitamins/ Calcium (Thera-M Plus) 1 tab DAILY PO Last administered on 07:33; Start 01/07/17 at 09:00 Warfarin Sodium (Coumadin Per Pharmacy) 1 each PRN DAILY PRN MC SEE COMMENTS Last administered on 01/09/17 09:45; Start 01/07/17 at 11:00 Warfarin Sodium (Coumadin - No Dose Today) 1 each 1X WARF ONCE MC Last administered on 01/07/17 16:00; Start 01/07/17 at 16:00; Stop 01/07/17 at 16:01 ; Status DC Levothyroxine Sodium (Synthroid) 25 mcg DAILY07 PO Last administered on 06:37; Start 01/08/17 at 07:00 Divalproex Sodium (Depakote Er) 250 mg QHS PO Last administered on 01/09/17 19 :42; Start 01/07/17 at 21:00 Colestipol HCl (Colestid) 5 gm BID@0700,2100 PO Last administered on 01/09/17 19:42; Start 01/08/17 at 09:00 Warfarin Sodium (Coumadin) 5 mg 1X WARF ONCE PO Last administered on 17:31; Start 01/08/17 at 16:00; Stop 01/08/17 at 16:01; Status DC Warfarin Sodium (Coumadin) 5 mg 1X WARF ONCE PO Last administered on 17:09; Start 01/09/17 at 16:00; Stop 01/09/17 at 16:01; Status DC Active Scripts Active Reported Prosource Plus Liquid Packet (Amino Ac/Protein Hydr/Whey Pro) 30 Ml Liquid.pkt 30 Ml PO DAILY Dulcolax (Bisacodyl) 10 Mg Supp.rect 10 Mg RC PRN DAILY PRN Silvadene (Silver Sulfadiazine) 20 Gm Cream..g. 20 Gm TP BID NITROGLYCERIN SubLingual (Nitroglycerin) 0.4 Mg Tab.subl 0.4 Mg SL PRN Q5MIN PRN May repeat x3 doses Maalox Maximum Strength Susp (Mag Hydrox/Al Hydrox/Simeth) 355 Ml Oral.susp 10 Ml PO PRN Q2HR PRN Duoneb 0.5-3(2.5) Mg/3 Ml (Albuterol/Ipratropium) 3 Ml Ampul.neb 3 Ml NEB PRN TID PRN Milk Of Magnesia (Magnesium Hydroxide) 400 Mg/5 Ml Oral.susp 400 Mg PO PRN Q3DAYS PRN Tylenol (Acetaminophen) 325 Mg Tablet 650 Mg PO PRN Q4HRS PRN Coumadin (Warfarin Sodium) 5 Mg Tablet 5 Mg PO DAILY16 Multivitamins (Multivitamin) 1 Each Tablet 1 Each PO Zoloft (Sertraline Hcl) 25 Mg Tablet 50 Mg PO DAILY Flomax (Tamsulosin Hcl) 0.4 Mg Cap.er.24h 1 Cap PO DAILY Methyldopa 250 Mg Tablet 500 Mg PO BID Hold for SBP <110 or pulse < 55 Mirtazapine 30 Mg Tablet 1 Tab PO QHS Finasteride 5 Mg Tablet 1 Tab PO DAILY Allopurinol 100 Mg Tablet 1 Tab PO DAILY Ascorbic Acid 500 Mg Tablet 500 Mg PO BID Colestipol Hcl 5 Gm Packet 5 Gm PO BID Risperidone 1 Mg Tablet 1 Tab PO BID Diagnosis: Problems: (1) Anxiety disorder (2) Dementia, vascular, with delusions (3) Dementia, vascular, with depression (4) Major depressive disorder, recurrent episode (5) Psychotic depression (6) Impulse control disorder DIANE KABA MD Jan 09, 2017 20:42
[2017-01-10] MEDS: COLESTIPOL HCL 1 GM TABLET PO SCH ×5 (05:03→20:17)
[2017-01-10] MEDS: LEVOTHYROXINE 25 MCG TABLET. PO SCH (05:03)
[2017-01-10 06:19] VITALS: BP 142/62
[2017-01-10] MEDS: METHYLDOPA 250 MG TABLET PO SCH ×2 (07:27→20:03)
[2017-01-10] MEDS: TAMSULOSIN 0.4 MG CAP.ER.24H. PO SCH (07:28)
[2017-01-10] MEDS: risperiDONE 1 MG TABLET. PO SCH ×2 (07:28→20:01)
[2017-01-10] MEDS: ASCORBIC ACID 500 MG TABLET PO SCH ×2 (07:28→20:02)
[2017-01-10] MEDS: SERTRALINE 50 MG TABLET. PO SCH (07:28)
[2017-01-10] MEDS: MULTIVITAMIN with MINERAL TABLET. PO SCH (07:28)
[2017-01-10] MEDS: FINASTERIDE 5 MG TABLET PO SCH (07:28)
[2017-01-10] MEDS: ALLOPURINOL 100 MG TABLET. PO SCH (07:28)
[2017-01-10 08:11] LABS: BASO # 0.1 x10^3/uL (0.0-0.2); BASO % 1 % (0-3); EOS # 0.3 x10^3/uL (0.0-0.7); EOS % 6 % (0-3); HEMATOCRIT 22.8 % (39.0-53.0); HEMOGLOBIN 7.6 g/dL (13.0-17.5); LYMPH # 1.2 x10^3/uL (1.0-4.8); LYMPH % 19 % (24-48); MEAN CORPUSCULAR HEMOGLOBIN 31 pg (25-35); MEAN CORPUSCULAR HGB CONC 34 g/dL (31-37); MEAN CORPUSCULAR VOLUME 91 fL (79-100); MONO # 0.3 x10^3/uL (0.0-1.1); MONO % 6 % (0-9); NEUT # 4.2 x10^3uL (1.8-7.7); NEUT % 69 % (31-73); PLATELET COUNT 284 x10^3/uL (140-400); RED BLOOD COUNT 2.49 x10^6/uL (4.30-5.70); WHITE BLOOD COUNT 6.2 x10^3/uL (4.0-11.0)
[2017-01-10 08:46] LABS: ALBUMIN 2.3 g/dL (3.4-5.0); ALBUMIN/GLOBULIN RATIO 0.8 (1.0-1.7); ALK PHOS 59 U/L (46-116); ALT (SGPT) 13 U/L (16-63); ANION GAP 6 (6-14); AST (SGOT) 18 U/L (15-37); BLOOD UREA NITROGEN 38 mg/dL (8-26); BUN/CREATININE RATIO 20 (6-20); CARBON DIOXIDE 22 mmol/L (21-32); CHLORIDE 111 mmol/L (98-107); CREATININE 1.9 mg/dL (0.7-1.3); GFR 33.8; GLUCOSE 79 mg/dL (70-99); SODIUM 139 mmol/L (136-145); TOTAL BILIRUBIN 0.4 mg/dL (0.2-1.0); TOTAL PROTEIN 5.1 g/dL (6.4-8.2)
[2017-01-10 08:48] LABS: VAL ACID 10 mcg/mL (50-100)
--- NOTE | 2017-01-10 09:25 | PN ---
DATE: 01/08/2017 This late entry 01/08/2017 covers elements not covered in my initial note of 01/08/2017. I met with the patient in the evening of 01/08/2017. He gets a little irritable at times, per nursing report told the occupational therapy staff to "bug off". He is compliant with medications, though he takes it only with coffee. Somewhat less paranoid, certainly confused with short term memory deficits. I met with him in his room. REVIEW OF SYSTEMS: Ambulation impaired, in wheelchair. No CV, , pulmonary, eye, ENT system symptoms on review. MENTAL STATUS EXAM: Oriented to himself and situation. Speech has some latency, coherent. Abstraction fair, computation impaired, language function intact, attention span short. Mood and affect still somewhat anxious, labile. LABORATORY DATA: Reviewed. IMPRESSION: Unchanged from initial note. PLAN: Continue current psychotropics mentioned in my initial note. Risperdal, Remeron, Zoloft, and Depakote was initiated, Zyprexa p.r.n. Follow labs level on the Depakote on 01/10/2017. Reviewed drug interactions. Risk/benefit ratio favors no further change. DIANE KABA MD DR: LAURY/rosalva JOB#: [id number] / [id number]
[2017-01-10 13:51] LABS: BILIRUBIN,URINE NEG (NEG); CLARITY,URINE HAZY; COLOR,URINE YELLOW; GLUCOSE,URINE NEG (NEG); NITRITE,URINE NEG (NEG); UROBILINOGEN,URINE 0.2 mg/dL (0.2 mg/dL)
[2017-01-10] MEDS ORDERED: WARFARIN 4 MG TABLET. PO ONE (16:00)
[2017-01-10 16:24] VITALS: BP 163/62
[2017-01-10] MEDS: DIVALPROEX ER 250 MG TAB.ER.24H. PO SCH (20:01)
[2017-01-10] MEDS: MIRTAZAPINE 30 MG TABLET PO SCH (20:02)
--- NOTE | 2017-01-10 20:52 | PDOC ---
Exam Gonzales Demential Exam: Gonzales Note: Please also refer to the separate dictated note~for this date of service dictated separately.~Patient seen individually. Discussed the patient with Nursing staff reviewed the chart.~Reviewed interim history and current functioning. Reviewed vital signs,~Labs/ Radiology~and current medications noted below. Continue current treatment with the changes noted in the dictated addendum note Assessment: Vital Signs: Vital Signs Date Time Temp Pulse Resp B/P (MAP) Pulse Ox O2 Delivery O2 Flow Rate FiO2 01/10/17 20:03 64 163/62 01/10/17 16:24 97.4 18 99 01/09/17 05:44 Room Air I&O Intake and Output 01/11/17 07:00 Intake Total 1280 ml Balance 1280 ml Intake Oral 1280 ml Labs: Laboratory Tests Test 01/10/17 07:08 01/10/17 13:29 White Blood Count 6.2 x10^3/uL (4.0-11.0) Red Blood Count 2.49 x10^6/uL (4.30-5.70) L Hemoglobin 7.6 g/dL (13.0-17.5) L Hematocrit 22.8 % (39.0-53.0) L Mean Corpuscular Volume 91 fL (79-100) Mean Corpuscular Hemoglobin 31 pg (25-35) Mean Corpuscular Hemoglobin Concent 34 g/dL (31-37) Red Cell Distribution Width 17.0 % (11.5-14.5) H Platelet Count 284 x10^3/uL (140-400) Neutrophils (%) (Auto) 69 % (31-73) Lymphocytes (%) (Auto) 19 % (24-48) L Monocytes (%) (Auto) 6 % (0-9) Eosinophils (%) (Auto) 6 % (0-3) H Basophils (%) (Auto) 1 % (0-3) Neutrophils # (Auto) 4.2 x10^3uL (1.8-7.7) Lymphocytes # (Auto) 1.2 x10^3/uL (1.0-4.8) Monocytes # (Auto) 0.3 x10^3/uL (0.0-1.1) Eosinophils # (Auto) 0.3 x10^3/uL (0.0-0.7) Basophils # (Auto) 0.1 x10^3/uL (0.0-0.2) Prothrombin Time 21.0 SEC (9.4-11.4) H Prothrombin Time INR 2.1 (0.9-1.1) H Sodium Level 139 mmol/L (136-145) Potassium Level 5.0 mmol/L (3.5-5.1) Chloride Level 111 mmol/L (98-107) H Carbon Dioxide Level 22 mmol/L (21-32) Anion Gap 6 (6-14) Blood Urea Nitrogen 38 mg/dL (8-26) H Creatinine 1.9 mg/dL (0.7-1.3) H Estimated GFR (Cockcroft-Gault) 33.8 BUN/Creatinine Ratio 20 (6-20) Glucose Level 79 mg/dL (70-99) Calcium Level 8.0 mg/dL (8.5-10.1) L Total Bilirubin 0.4 mg/dL (0.2-1.0) Aspartate Amino Transferase (AST) 18 U/L (15-37) Alanine Aminotransferase (ALT) 13 U/L (16-63) L Alkaline Phosphatase 59 U/L (46-116) Total Protein 5.1 g/dL (6.4-8.2) L Albumin 2.3 g/dL (3.4-5.0) L Albumin/Globulin Ratio 0.8 (1.0-1.7) L Valproic Acid Level 10 mcg/mL (50-100) L Valproic Acid Last Dose Date 01/09/2017 Valproic Acid Last Dose Time 2100 Urine Collection Type Unknown Urine Color Yellow Urine Clarity Hazy Urine pH 5.0 Urine Specific [place] 1.010 Urine Protein Neg (NEG-TRACE) Urine Glucose (UA) Neg mg/dL (NEG) Urine Ketones (Stick) Neg mg/dL (NEG) Urine Blood Neg (NEG) Urine Nitrite Neg (NEG) Urine Bilirubin Neg (NEG) Urine Urobilinogen Dipstick 0.2 mg/dL (0.2 mg/dL) Urine Leukocyte Esterase Trace (NEG) Current Medications: Meds: Current Medications Sodium Chloride 500 ml @ 0 mls/hr 1X ONCE IV Last administered on 01/06/17t 09 :45; Start 01/06/17 at 09:30; Stop 01/06/17 at 09:55; Status DC Sodium Polystyrene Sulfonate (Kayexalate) 15 gm 1X ONCE PO Last administered on 01/06/17 10:40; Start 01/06/17 at 10:00; Stop 01/06/17 at 10:01; Status DC Influenza Virus Vaccine Quadrival (Fluarix Quad [id number] Syringe) 0.5 ml 1X ONCE VAX IM Last administered on 01/07/17 18:12; Start 01/07/17 at 09:00; Stop 01/07/17 at 09:01; Status DC Olanzapine (ZyPREXA ZYDIS) 2.5 mg PRN Q2HR PRN PO Agitation ; Start 01/06/17 at 12:30 Acetaminophen (Tylenol) 650 mg PRN Q4HRS PRN PO PAIN / TEMP; Start 01/06/17 at 12:45 Allopurinol (Zyloprim) 100 mg DAILY PO Last administered on 01/10/17 07:28; Start 01/07/17 at 09:00 Ascorbic Acid (Vitamin C) 500 mg BID PO Last administered on 01/10/17 20:02; Start 01/06/17 at 21:00 Bisacodyl (Dulcolax Supp) 10 mg PRN DAILY PRN RC CONSTIPATION; Start 01/06/17 at 12:45 Finasteride (Proscar) 5 mg DAILY PO Last administered on 01/10/17 07:28; Start 01/07/17 at 09:00 Albuterol/ Ipratropium (Duoneb) 3 ml PRN TID PRN NEB WHEEZING; Start 01/06/17 at 12:45 Al Hydroxide/Mg Hydroxide (Mylanta Plus Xs) 10 ml PRN Q2HR PRN PO INDIGESTION; Start 01/06/17 at 12:45 Magnesium Hydroxide (Milk Of Magnesia) 400 mg PRN QHS PRN PO CONSTIPATION; Start 01/06/17 at 12:45 Methyldopa (Aldomet) 500 mg BID PO Last administered on 01/10/17 20:03; Start 01/06/17 at 21:00 Nitroglycerin (Nitrostat) 0.4 mg PRN Q5MIN PRN SL CHEST PAIN; Start 01/06/17 at 12:45 Silver Sulfadiazine (Silvadene) 1 zoe BID TP Last administered on 01/08/17 09: 51; Start 01/06/17 at 21:00; Stop 01/08/17 at 22:55; Status DC Tamsulosin HCl (Flomax) 0.4 mg DAILY PO Last administered on 01/10/17 07:28; Start 01/07/17 at 09:00 Warfarin Sodium (Coumadin) 5 mg DAILY16 PO ; Start 01/06/17 at 16:00; Stop 01/06 at 16:00; Status DC Non-Formulary Medication 30 ml DAILY PO ; Start 01/07/17 at 09:00; Stop at 09:00; Status DC Colestipol HCl (Colestid) 5 gm BID PO Last administered on 01/07/17 19:45; Start 01/06/17 at 21:00; Stop 01/08/17 at 08:58; Status DC Mirtazapine (Remeron) 30 mg QHS PO Last administered on 01/10/17 20:02; Start 01/06/17 at 21:00 Risperidone (RisperDAL) 1 mg BID PO Last administered on 01/10/17 20:01; Start 01/06/17 at 21:00 Sertraline HCl (Zoloft) 50 mg DAILY PO Last administered on 01/10/17 07:28; Start 01/07/17 at 09:00 Multivitamins/ Calcium (Thera-M Plus) 1 tab DAILY PO Last administered on 07:28; Start 01/07/17 at 09:00 Warfarin Sodium (Coumadin Per Pharmacy) 1 each PRN DAILY PRN MC SEE COMMENTS Last administered on 01/10/17 14:27; Start 01/07/17 at 11:00 Warfarin Sodium (Coumadin - No Dose Today) 1 each 1X WARF ONCE MC Last administered on 01/07/17 16:00; Start 01/07/17 at 16:00; Stop 01/07/17 at 16:01 ; Status DC Levothyroxine Sodium (Synthroid) 25 mcg DAILY07 PO Last administered on 05:03; Start 01/08/17 at 07:00 Divalproex Sodium (Depakote Er) 250 mg QHS PO Last administered on 01/10/17 20 :01; Start 01/07/17 at 21:00 Colestipol HCl (Colestid) 5 gm BID@0700,2100 PO Last administered on 01/09/17 19:42; Start 01/08/17 at 09:00 Warfarin Sodium (Coumadin) 5 mg 1X WARF ONCE PO Last administered on 17:31; Start 01/08/17 at 16:00; Stop 01/08/17 at 16:01; Status DC Warfarin Sodium (Coumadin) 5 mg 1X WARF ONCE PO Last administered on 17:09; Start 01/09/17 at 16:00; Stop 01/09/17 at 16:01; Status DC Warfarin Sodium (Coumadin) 4 mg 1X WARF ONCE PO Last administered on 17:57; Start 01/10/17 at 16:00; Stop 01/10/17 at 16:01; Status DC Active Scripts Active Reported Prosource Plus Liquid Packet (Amino Ac/Protein Hydr/Whey Pro) 30 Ml Liquid.pkt 30 Ml PO DAILY Dulcolax (Bisacodyl) 10 Mg Supp.rect 10 Mg RC PRN DAILY PRN Silvadene (Silver Sulfadiazine) 20 Gm Cream..g. 20 Gm TP BID NITROGLYCERIN SubLingual (Nitroglycerin) 0.4 Mg Tab.subl 0.4 Mg SL PRN Q5MIN PRN May repeat x3 doses Maalox Maximum Strength Susp (Mag Hydrox/Al Hydrox/Simeth) 355 Ml Oral.susp 10 Ml PO PRN Q2HR PRN Duoneb 0.5-3(2.5) Mg/3 Ml (Albuterol/Ipratropium) 3 Ml Ampul.neb 3 Ml NEB PRN TID PRN Milk Of Magnesia (Magnesium Hydroxide) 400 Mg/5 Ml Oral.susp 400 Mg PO PRN Q3DAYS PRN Tylenol (Acetaminophen) 325 Mg Tablet 650 Mg PO PRN Q4HRS PRN Coumadin (Warfarin Sodium) 5 Mg Tablet 5 Mg PO DAILY16 Multivitamins (Multivitamin) 1 Each Tablet 1 Each PO Zoloft (Sertraline Hcl) 25 Mg Tablet 50 Mg PO DAILY Flomax (Tamsulosin Hcl) 0.4 Mg Cap.er.24h 1 Cap PO DAILY Methyldopa 250 Mg Tablet 500 Mg PO BID Hold for SBP <110 or pulse < 55 Mirtazapine 30 Mg Tablet 1 Tab PO QHS Finasteride 5 Mg Tablet 1 Tab PO DAILY Allopurinol 100 Mg Tablet 1 Tab PO DAILY Ascorbic Acid 500 Mg Tablet 500 Mg PO BID Colestipol Hcl 5 Gm Packet 5 Gm PO BID Risperidone 1 Mg Tablet 1 Tab PO BID Diagnosis: Problems: (1) Aggressive behavior (2) Bipolar affective, mixed, sev w/ psych (3) Anxiety disorder (4) Dementia, vascular, with delusions (5) Dementia, vascular, with depression (6) Mild cognitive disorder (7) Major depressive disorder, recurrent episode (8) Psychotic depression (9) Impulse control disorder DIANE KABA MD Jan 10, 2017 20:52
--- NOTE | 2017-01-10 22:23 | PN ---
DATE: 01/09/2017 PSYCHIATRIC PROGRESS NOTE This late entry 01/09/2017 covers elements not covered in my initial note of 01/09/2017. SUBJECTIVE: I met with the patient in the evening of 01/09/2017. Further historical information was obtained from the patient's . Reportedly, the patient has been violent most of his life, difficult to be around , really does not want to have much to do with him. Resistive to medications, takes it with coffee. I met with him in his room. He is lying in bed, complains of cramps in the left thigh. Nursing staff will address this. The previous evening, he was swearing and cursing at staff. REVIEW OF SYSTEMS: Ambulation impaired, cramps as noted. No CV, , pulmonary, eye system symptoms on review. MENTAL STATUS EXAM: Oriented to himself and situation at times. Speech has some latency, coherent. Abstraction fair, computation impaired, language function intact, attention span short. Mood and affect still somewhat withdrawn, labile, paranoid, delusional. LABORATORIES: Reviewed. IMPRESSION: Unchanged from initial note. PLAN: Continue current psychotropics. Check labs level on the valproic acid 01/10/2017, adjust Depakote thereafter. Risperdal maintain 1 mg b.i.d., Remeron 30 mg at bedtime, Zoloft 50 mg a day, Depakote ER 250 mg at bedtime, Zyprexa p.r.n. Review drug interactions, risk/benefit ratio favors no further change. DIANE KABA MD DR: LAURY/rosalva JOB#: [id number] / [id number]
[2017-01-11] MEDS: LEVOTHYROXINE 25 MCG TABLET. PO SCH (05:43)
[2017-01-11] MEDS: COLESTIPOL HCL 1 GM TABLET PO SCH ×2 (05:50→19:58)
[2017-01-11 06:16] VITALS: BP 133/71
[2017-01-11 07:03] LABS: FECAL OB PT NEGATIVE (NEG)
[2017-01-11 08:00] LABS: BASO # 0.1 x10^3/uL (0.0-0.2); BASO % 1 % (0-3); EOS # 0.3 x10^3/uL (0.0-0.7); EOS % 4 % (0-3); HEMATOCRIT 22.3 % (39.0-53.0); HEMOGLOBIN 7.4 g/dL (13.0-17.5); LYMPH # 1.1 x10^3/uL (1.0-4.8); LYMPH % 16 % (24-48); MEAN CORPUSCULAR HEMOGLOBIN 30 pg (25-35); MEAN CORPUSCULAR HGB CONC 33 g/dL (31-37); MEAN CORPUSCULAR VOLUME 92 fL (79-100); MONO # 0.4 x10^3/uL (0.0-1.1); MONO % 6 % (0-9); NEUT # 5.3 x10^3uL (1.8-7.7); NEUT % 74 % (31-73); PLATELET COUNT 269 x10^3/uL (140-400); RED BLOOD COUNT 2.44 x10^6/uL (4.30-5.70); RED CELL DISTRIBUTION WIDTH 17.2 % (11.5-14.5); WHITE BLOOD COUNT 7.2 x10^3/uL (4.0-11.0)
[2017-01-11] MEDS: ALLOPURINOL 100 MG TABLET. PO SCH (09:07)
[2017-01-11] MEDS: risperiDONE 1 MG TABLET. PO SCH ×2 (09:07→19:58)
[2017-01-11] MEDS: TAMSULOSIN 0.4 MG CAP.ER.24H. PO SCH (09:07)
[2017-01-11] MEDS: METHYLDOPA 250 MG TABLET PO SCH ×2 (09:07→19:58)
[2017-01-11] MEDS: FINASTERIDE 5 MG TABLET PO SCH (09:07)
[2017-01-11] MEDS: SERTRALINE 50 MG TABLET. PO SCH (09:07)
[2017-01-11] MEDS: ASCORBIC ACID 500 MG TABLET PO SCH ×2 (09:07→19:59)
[2017-01-11] MEDS: MULTIVITAMIN with MINERAL TABLET. PO SCH (09:07)
[2017-01-11] MEDS ORDERED: WARFARIN 4 MG TABLET. PO ONE (16:00)
[2017-01-11 16:14] VITALS: BP 166/80
--- NOTE | 2017-01-11 19:56 | PN ---
DATE: 01/11/2017 PSYCHIATRIC PROGRESS NOTE This late entry 01/10/2017, covers elements not covered in my initial note of 01/10/2017. I met with the patient evening of 01/10/2017. The patient has been somewhat "gruff" per nursing report. He is labile, irritable, then this is very evident the previous evening, cursing at staff, resistive to medications, takes it with coffee. Slept eight and quarter hours previous evening. REVIEW OF SYSTEMS: Ambulation impaired. No CV, , pulmonary, eye system symptoms on review. MENTAL STATUS EXAM: Oriented to himself and situation. Speech coherent, abstraction fair, computation impaired, language function intact, attention span short. Mood and affect remain somewhat labile. LABORATORY DATA: Reviewed. IMPRESSION: Unchanged from initial note. PLAN: Valproic acid level is 10, we will observe another day and starting 01/11/2017, increase the Depakote ER to 500 mg at bedtime. Check CBC, CMP, valproic acid level in 3 days with a plan to reach a therapeutic level. Continue rest of psychotropics mentioned in my initial note. Reviewed drug interactions, risk/benefit ratio favors no further change. MAN Isaías KABA MD DR: LAURY/rosalva JOB#: [id number] / [id number]
[2017-01-11] MEDS: MIRTAZAPINE 30 MG TABLET PO SCH (19:59)
[2017-01-11] MEDS: DIVALPROEX ER 500 MG TAB.ER.24H PO SCH (19:59)
--- NOTE | 2017-01-11 20:55 | PDOC ---
Exam Gonzales Demential Exam: Gonzales Note: Please also refer to the separate dictated note~for this date of service dictated separately.~Patient seen individually. Discussed the patient with Nursing staff reviewed the chart.~Reviewed interim history and current functioning. Reviewed vital signs,~Labs/ Radiology~and current medications noted below. Continue current treatment with the changes noted in the dictated addendum note Assessment: Vital Signs: Vital Signs Date Time Temp Pulse Resp B/P (MAP) Pulse Ox O2 Delivery O2 Flow Rate FiO2 01/11/17 19:58 72 166/80 01/11/17 16:14 20 96 01/11/17 06:16 98.1 Room Air I&O Intake and Output 01/12/17 07:00 Intake Total 1020 ml Balance 1020 ml Intake Oral 1020 ml # Bowel Movements 1 Labs: Laboratory Tests Test 01/11/17 05:40 01/11/17 07:20 Stool Occult Blood Negative (NEG) White Blood Count 7.2 x10^3/uL (4.0-11.0) Red Blood Count 2.44 x10^6/uL (4.30-5.70) L Hemoglobin 7.4 g/dL (13.0-17.5) L Hematocrit 22.3 % (39.0-53.0) L Mean Corpuscular Volume 92 fL (79-100) Mean Corpuscular Hemoglobin 30 pg (25-35) Mean Corpuscular Hemoglobin Concent 33 g/dL (31-37) Red Cell Distribution Width 17.2 % (11.5-14.5) H Platelet Count 269 x10^3/uL (140-400) Neutrophils (%) (Auto) 74 % (31-73) H Lymphocytes (%) (Auto) 16 % (24-48) L Monocytes (%) (Auto) 6 % (0-9) Eosinophils (%) (Auto) 4 % (0-3) H Basophils (%) (Auto) 1 % (0-3) Neutrophils # (Auto) 5.3 x10^3uL (1.8-7.7) Lymphocytes # (Auto) 1.1 x10^3/uL (1.0-4.8) Monocytes # (Auto) 0.4 x10^3/uL (0.0-1.1) Eosinophils # (Auto) 0.3 x10^3/uL (0.0-0.7) Basophils # (Auto) 0.1 x10^3/uL (0.0-0.2) Prothrombin Time 23.9 SEC (9.4-11.4) H Prothrombin Time INR 2.4 (0.9-1.1) H Current Medications: Meds: Current Medications Sodium Chloride 500 ml @ 0 mls/hr 1X ONCE IV Last administered on 01/06/17 09 :45; Start 01/06/17 at 09:30; Stop 01/06/17 at 09:55; Status DC Sodium Polystyrene Sulfonate (Kayexalate) 15 gm 1X ONCE PO Last administered on 01/06/17 10:40; Start 01/06/17 at 10:00; Stop 01/06/17 at 10:01; Status DC Influenza Virus Vaccine Quadrival (Fluarix Quad 6620-5303 Syringe) 0.5 ml 1X ONCE VAX IM Last administered on 01/07/17 18:12; Start 01/07/17 at 09:00; Stop 01/07/17 at 09:01; Status DC Olanzapine (ZyPREXA ZYDIS) 2.5 mg PRN Q2HR PRN PO Agitation ; Start 01/06/17 at 12:30 Acetaminophen (Tylenol) 650 mg PRN Q4HRS PRN PO PAIN / TEMP; Start 01/06/17 at 12:45 Allopurinol (Zyloprim) 100 mg DAILY PO Last administered on 01/11/17 09:07; Start 01/07/17 at 09:00 Ascorbic Acid (Vitamin C) 500 mg BID PO Last administered on 01/11/17 19:59; Start 01/06/17 at 21:00 Bisacodyl (Dulcolax Supp) 10 mg PRN DAILY PRN RC CONSTIPATION; Start 01/06/17 at 12:45 Finasteride (Proscar) 5 mg DAILY PO Last administered on 01/11/17 09:07; Start 01/07/17 at 09:00 Albuterol/ Ipratropium (Duoneb) 3 ml PRN TID PRN NEB WHEEZING; Start 01/06/17 at 12:45 Al Hydroxide/Mg Hydroxide (Mylanta Plus Xs) 10 ml PRN Q2HR PRN PO INDIGESTION; Start 01/06/17 at 12:45 Magnesium Hydroxide (Milk Of Magnesia) 400 mg PRN QHS PRN PO CONSTIPATION; Start 01/06/17 at 12:45 Methyldopa (Aldomet) 500 mg BID PO Last administered on 01/11/17 19:58; Start 01/06/17 at 21:00 Nitroglycerin (Nitrostat) 0.4 mg PRN Q5MIN PRN SL CHEST PAIN; Start 01/06/17 at 12:45 Silver Sulfadiazine (Silvadene) 1 zoe BID TP Last administered on 01/08/17 09: 51; Start 01/06/17 at 21:00; Stop 01/08/17 at 22:55; Status DC Tamsulosin HCl (Flomax) 0.4 mg DAILY PO Last administered on 01/11/17 09:07; Start 01/07/17 at 09:00 Warfarin Sodium (Coumadin) 5 mg DAILY16 PO ; Start 01/06/17 at 16:00; Stop 01/06 at 16:00; Status DC Non-Formulary Medication 30 ml DAILY PO ; Start 01/07/17 at 09:00; Stop at 09:00; Status DC Colestipol HCl (Colestid) 5 gm BID PO Last administered on 01/07/17 19:45; Start 01/06/17 at 21:00; Stop 01/08/17 at 08:58; Status DC Mirtazapine (Remeron) 30 mg QHS PO Last administered on 01/11/17 19:59; Start 01/06/17 at 21:00 Risperidone (RisperDAL) 1 mg BID PO Last administered on 01/11/17 19:58; Start 01/06/17 at 21:00 Sertraline HCl (Zoloft) 50 mg DAILY PO Last administered on 01/11/17 09:07; Start 01/07/17 at 09:00 Multivitamins/ Calcium (Thera-M Plus) 1 tab DAILY PO Last administered on 09:07; Start 01/07/17 at 09:00 Warfarin Sodium (Coumadin Per Pharmacy) 1 each PRN DAILY PRN MC SEE COMMENTS Last administered on 01/11/17 14:41; Start 01/07/17 at 11:00 Warfarin Sodium (Coumadin - No Dose Today) 1 each 1X WARF ONCE MC Last administered on 01/07/17 16:00; Start 01/07/17 at 16:00; Stop 01/07/17 at 16:01 ; Status DC Levothyroxine Sodium (Synthroid) 25 mcg DAILY07 PO Last administered on 05:43; Start 01/08/17 at 07:00 Divalproex Sodium (Depakote Er) 250 mg QHS PO Last administered on 01/10/17 20 :01; Start 01/07/17 at 21:00; Stop 01/11/17 at 10:17; Status DC Colestipol HCl (Colestid) 5 gm BID@0700,2100 PO Last administered on 01/11/17 19:58; Start 01/08/17 at 09:00 Warfarin Sodium (Coumadin) 5 mg 1X WARF ONCE PO Last administered on 17:31; Start 01/08/17 at 16:00; Stop 01/08/17 at 16:01; Status DC Warfarin Sodium (Coumadin) 5 mg 1X WARF ONCE PO Last administered on 17:09; Start 01/09/17 at 16:00; Stop 01/09/17 at 16:01; Status DC Warfarin Sodium (Coumadin) 4 mg 1X WARF ONCE PO Last administered on 17:57; Start 01/10/17 at 16:00; Stop 01/10/17 at 16:01; Status DC Divalproex Sodium (Depakote Er) 500 mg QHS PO Last administered on 01/11/17 19 :59; Start 01/11/17 at 21:00 Warfarin Sodium (Coumadin) 4 mg 1X WARF ONCE PO Last administered on 16:35; Start 01/11/17 at 16:00; Stop 01/11/17 at 16:02; Status DC Active Scripts Active Reported Prosource Plus Liquid Packet (Amino Ac/Protein Hydr/Whey Pro) 30 Ml Liquid.pkt 30 Ml PO DAILY Dulcolax (Bisacodyl) 10 Mg Supp.rect 10 Mg RC PRN DAILY PRN Silvadene (Silver Sulfadiazine) 20 Gm Cream..g. 20 Gm TP BID NITROGLYCERIN SubLingual (Nitroglycerin) 0.4 Mg Tab.subl 0.4 Mg SL PRN Q5MIN PRN May repeat x3 doses Maalox Maximum Strength Susp (Mag Hydrox/Al Hydrox/Simeth) 355 Ml Oral.susp 10 Ml PO PRN Q2HR PRN Duoneb 0.5-3(2.5) Mg/3 Ml (Albuterol/Ipratropium) 3 Ml Ampul.neb 3 Ml NEB PRN TID PRN Milk Of Magnesia (Magnesium Hydroxide) 400 Mg/5 Ml Oral.susp 400 Mg PO PRN Q3DAYS PRN Tylenol (Acetaminophen) 325 Mg Tablet 650 Mg PO PRN Q4HRS PRN Coumadin (Warfarin Sodium) 5 Mg Tablet 5 Mg PO DAILY16 Multivitamins (Multivitamin) 1 Each Tablet 1 Each PO Zoloft (Sertraline Hcl) 25 Mg Tablet 50 Mg PO DAILY Flomax (Tamsulosin Hcl) 0.4 Mg Cap.er.24h 1 Cap PO DAILY Methyldopa 250 Mg Tablet 500 Mg PO BID Hold for SBP <110 or pulse < 55 Mirtazapine 30 Mg Tablet 1 Tab PO QHS Finasteride 5 Mg Tablet 1 Tab PO DAILY Allopurinol 100 Mg Tablet 1 Tab PO DAILY Ascorbic Acid 500 Mg Tablet 500 Mg PO BID Colestipol Hcl 5 Gm Packet 5 Gm PO BID Risperidone 1 Mg Tablet 1 Tab PO BID Diagnosis: Problems: (1) Aggressive behavior (2) Bipolar affective, mixed, sev w/ psych (3) Anxiety disorder (4) Dementia, vascular, with delusions (5) Dementia, vascular, with depression (6) Mild cognitive disorder (7) Major depressive disorder, recurrent episode (8) Psychotic depression (9) Impulse control disorder DIANE KABA MD Jan 11, 2017 20:55
[2017-01-12 05:57] VITALS: BP 171/72
[2017-01-12] MEDS: MULTIVITAMIN with MINERAL TABLET. PO SCH (08:20)
[2017-01-12] MEDS: FINASTERIDE 5 MG TABLET PO SCH (08:20)
[2017-01-12] MEDS: ASCORBIC ACID 500 MG TABLET PO SCH ×2 (08:20→19:56)
[2017-01-12] MEDS: TAMSULOSIN 0.4 MG CAP.ER.24H. PO SCH (08:20)
[2017-01-12] MEDS: ALLOPURINOL 100 MG TABLET. PO SCH (08:20)
[2017-01-12] MEDS: SERTRALINE 50 MG TABLET. PO SCH (08:20)
[2017-01-12] MEDS: risperiDONE 1 MG TABLET. PO SCH ×2 (08:20→19:56)
[2017-01-12] MEDS: METHYLDOPA 250 MG TABLET PO SCH ×2 (08:20→19:56)
[2017-01-12] MEDS: COLESTIPOL HCL 1 GM TABLET PO SCH ×2 (08:21→19:54)
[2017-01-12] MEDS: LEVOTHYROXINE 25 MCG TABLET. PO SCH (08:21)
[2017-01-12] MEDS: PANTOPRAZOLE 40 MG TABLET. PO SCH (10:30)
[2017-01-12] MEDS: CHOLECALCIFEROL (VITAMIN D3) 50,000 UNIT CAPSULE PO SCH (10:30)
[2017-01-12 15:35] VITALS: BP 154/82
--- NOTE | 2017-01-12 16:39 | RAD ---
Hand x-rays Indication: Left hand swelling Technique: 32 views of the left hand Comparison: None Findings: No acute fractures. Severe osteoarthritis of the first carpometacarpal joint. Moderate osteoarthritis of the radiocarpal joint. There is mild sclerosis of the articular surface of the DIP and PIP joints with productive changes suggesting osteoarthritis. Diffuse periarticular osteopenia noted. Diffuse hand swelling noted. Impression: 1. No acute fracture or dislocation. 2. Findings of osteoarthritis.
[2017-01-12] MEDS: MIRTAZAPINE 30 MG TABLET PO SCH (19:54)
[2017-01-12] MEDS: DIVALPROEX ER 500 MG TAB.ER.24H PO SCH (19:56)
--- NOTE | 2017-01-12 21:04 | PDOC ---
Exam Gonzales Demential Exam: Gonzales Note: Please also refer to the separate dictated note~for this date of service dictated separately.~Patient seen individually. Discussed the patient with Nursing staff reviewed the chart.~Reviewed interim history and current functioning. Reviewed vital signs,~Labs/ Radiology~and current medications noted below. Continue current treatment with the changes noted in the dictated addendum note Assessment: Vital Signs: Vital Signs Date Time Temp Pulse Resp B/P (MAP) Pulse Ox O2 Delivery O2 Flow Rate FiO2 01/12/17 19:56 68 154/82 01/12/17 15:35 98.0 20 99 01/11/17 06:16 Room Air I&O Intake and Output 01/13/17 07:00 Intake Total 1080 ml Balance 1080 ml Intake Oral 1080 ml Labs: Laboratory Tests Test 01/12/17 07:40 Prothrombin Time 28.4 SEC (9.4-11.4) H Prothrombin Time INR 2.8 (0.9-1.1) H Current Medications: Meds: Current Medications Sodium Chloride 500 ml @ 0 mls/hr 1X ONCE IV Last administered on 01/06/17 09 :45; Start 01/06/17 at 09:30; Stop 01/06/17 at 09:55; Status DC Sodium Polystyrene Sulfonate (Kayexalate) 15 gm 1X ONCE PO Last administered on 01/06/17 10:40; Start 01/06/17 at 10:00; Stop 01/06/17 at 10:01; Status DC Influenza Virus Vaccine Quadrival (Fluarix Quad 2165-5083 Syringe) 0.5 ml 1X ONCE VAX IM Last administered on 01/07/17 18:12; Start 01/07/17 at 09:00; Stop 01/07/17 at 09:01; Status DC Olanzapine (ZyPREXA ZYDIS) 2.5 mg PRN Q2HR PRN PO Agitation ; Start 01/06/17 at 12:30 Acetaminophen (Tylenol) 650 mg PRN Q4HRS PRN PO PAIN / TEMP; Start 01/06/17 at 12:45 Allopurinol (Zyloprim) 100 mg DAILY PO Last administered on 01/12/17 08:20; Start 01/07/17 at 09:00 Ascorbic Acid (Vitamin C) 500 mg BID PO Last administered on 01/12/17 19:56; Start 01/06/17 at 21:00 Bisacodyl (Dulcolax Supp) 10 mg PRN DAILY PRN RC CONSTIPATION; Start 01/06/17 at 12:45 Finasteride (Proscar) 5 mg DAILY PO Last administered on 01/12/17 08:20; Start 01/07/17 at 09:00 Albuterol/ Ipratropium (Duoneb) 3 ml PRN TID PRN NEB WHEEZING; Start 01/06/17 at 12:45 Al Hydroxide/Mg Hydroxide (Mylanta Plus Xs) 10 ml PRN Q2HR PRN PO INDIGESTION; Start 01/06/17 at 12:45 Magnesium Hydroxide (Milk Of Magnesia) 400 mg PRN QHS PRN PO CONSTIPATION; Start 01/06/17 at 12:45 Methyldopa (Aldomet) 500 mg BID PO Last administered on 01/12/17 19:56; Start 01/06/17 at 21:00 Nitroglycerin (Nitrostat) 0.4 mg PRN Q5MIN PRN SL CHEST PAIN; Start 01/06/17 at 12:45 Silver Sulfadiazine (Silvadene) 1 zoe BID TP Last administered on 01/08/17 09: 51; Start 01/06/17 at 21:00; Stop 01/08/17 at 22:55; Status DC Tamsulosin HCl (Flomax) 0.4 mg DAILY PO Last administered on 01/12/17 08:20; Start 01/07/17 at 09:00 Warfarin Sodium (Coumadin) 5 mg DAILY16 PO ; Start 01/06/17 at 16:00; Stop 01/06 at 16:00; Status DC Non-Formulary Medication 30 ml DAILY PO ; Start 01/07/17 at 09:00; Stop at 09:00; Status DC Colestipol HCl (Colestid) 5 gm BID PO Last administered on 01/07/17 19:45; Start 01/06/17 at 21:00; Stop 01/08/17 at 08:58; Status DC Mirtazapine (Remeron) 30 mg QHS PO Last administered on 01/12/17 19:54; Start 01/06/17 at 21:00 Risperidone (RisperDAL) 1 mg BID PO Last administered on 01/12/17 19:56; Start 01/06/17 at 21:00 Sertraline HCl (Zoloft) 50 mg DAILY PO Last administered on 01/12/17 08:20; Start 01/07/17 at 09:00 Multivitamins/ Calcium (Thera-M Plus) 1 tab DAILY PO Last administered on 08:20; Start 01/07/17 at 09:00 Warfarin Sodium (Coumadin Per Pharmacy) 1 each PRN DAILY PRN MC SEE COMMENTS Last administered on 01/11/17 14:41; Start 01/07/17 at 11:00; Stop 01/12/17 at 12:09; Status DC Warfarin Sodium (Coumadin - No Dose Today) 1 each 1X WARF ONCE MC Last administered on 01/07/17 16:00; Start 01/07/17 at 16:00; Stop 01/07/17 at 16:01 ; Status DC Levothyroxine Sodium (Synthroid) 25 mcg DAILY07 PO Last administered on 08:21; Start 01/08/17 at 07:00 Divalproex Sodium (Depakote Er) 250 mg QHS PO Last administered on 01/10/17 20 :01; Start 01/07/17 at 21:00; Stop 01/11/17 at 10:17; Status DC Colestipol HCl (Colestid) 5 gm BID@0700,2100 PO Last administered on 01/12/17 19:54; Start 01/08/17 at 09:00 Warfarin Sodium (Coumadin) 5 mg 1X WARF ONCE PO Last administered on 17:31; Start 01/08/17 at 16:00; Stop 01/08/17 at 16:01; Status DC Warfarin Sodium (Coumadin) 5 mg 1X WARF ONCE PO Last administered on 17:09; Start 01/09/17 at 16:00; Stop 01/09/17 at 16:01; Status DC Warfarin Sodium (Coumadin) 4 mg 1X WARF ONCE PO Last administered on 17:57; Start 01/10/17 at 16:00; Stop 01/10/17 at 16:01; Status DC Divalproex Sodium (Depakote Er) 500 mg QHS PO Last administered on 01/12/17 19 :56; Start 01/11/17 at 21:00 Warfarin Sodium (Coumadin) 4 mg 1X WARF ONCE PO Last administered on 16:35; Start 01/11/17 at 16:00; Stop 01/12/17 at 12:09; Status DC Pantoprazole Sodium (Protonix) 40 mg DAILYAC PO Last administered on 01/12/17 10:30; Start 01/12/17 at 10:30 Vitamin D (Vitamin D3) 50,000 unit WEEKLY PO Last administered on 01/12/17 10: 30; Start 01/12/17 at 10:30 Ferrous Sulfate (Feosol) 325 mg DAILYWBKFT PO ; Start 01/13/17 at 08:00 Warfarin Sodium (Coumadin - No Dose Today) 1 each 1X WARF ONCE MC ; Start 01/12 at 16:00; Stop 01/12/17 at 16:00; Status DC Active Scripts Active Reported Prosource Plus Liquid Packet (Amino Ac/Protein Hydr/Whey Pro) 30 Ml Liquid.pkt 30 Ml PO DAILY Dulcolax (Bisacodyl) 10 Mg Supp.rect 10 Mg RC PRN DAILY PRN Silvadene (Silver Sulfadiazine) 20 Gm Cream..g. 20 Gm TP BID NITROGLYCERIN SubLingual (Nitroglycerin) 0.4 Mg Tab.subl 0.4 Mg SL PRN Q5MIN PRN May repeat x3 doses Maalox Maximum Strength Susp (Mag Hydrox/Al Hydrox/Simeth) 355 Ml Oral.susp 10 Ml PO PRN Q2HR PRN Duoneb 0.5-3(2.5) Mg/3 Ml (Albuterol/Ipratropium) 3 Ml Ampul.neb 3 Ml NEB PRN TID PRN Milk Of Magnesia (Magnesium Hydroxide) 400 Mg/5 Ml Oral.susp 400 Mg PO PRN Q3DAYS PRN Tylenol (Acetaminophen) 325 Mg Tablet 650 Mg PO PRN Q4HRS PRN Coumadin (Warfarin Sodium) 5 Mg Tablet 5 Mg PO DAILY16 Multivitamins (Multivitamin) 1 Each Tablet 1 Each PO Zoloft (Sertraline Hcl) 25 Mg Tablet 50 Mg PO DAILY Flomax (Tamsulosin Hcl) 0.4 Mg Cap.er.24h 1 Cap PO DAILY Methyldopa 250 Mg Tablet 500 Mg PO BID Hold for SBP <110 or pulse < 55 Mirtazapine 30 Mg Tablet 1 Tab PO QHS Finasteride 5 Mg Tablet 1 Tab PO DAILY Allopurinol 100 Mg Tablet 1 Tab PO DAILY Ascorbic Acid 500 Mg Tablet 500 Mg PO BID Colestipol Hcl 5 Gm Packet 5 Gm PO BID Risperidone 1 Mg Tablet 1 Tab PO BID Diagnosis: Problems: (1) Bipolar affective, mixed, sev w/ psych (2) Aggressive behavior (3) Dementia, vascular, with delusions (4) Anxiety disorder (5) Dementia, vascular, with depression (6) Mild cognitive disorder (7) Major depressive disorder, recurrent episode (8) Psychotic depression (9) Impulse control disorder DIANE KABA MD Jan 12, 2017 21:04
--- NOTE | 2017-01-12 22:04 | PN ---
DATE: 01/11/2017 PSYCHIATRIC PROGRESS NOTE This late entry date of service 01/11/2017, covers elements not covered in my initial note of 01/11/2017. SUBJECTIVE: I met with the patient evening of 01/11/2017. The patient was also staffed at a treatment team meeting with the entire team morning of 01/11/2017. The patient has been somewhat rude, resistive to care, not coming out of bed, refusing medications. Previous evening, he was resistive to all interventions by nursing staff. Reviewed his background history at length including somewhat abrasive and asocial behaviors, anger and domineering behaviors much of his life as obtained from the family. REVIEW OF SYSTEMS: Positive for impaired ambulation, in wheelchair. No CV, , pulmonary, eye, ENT system symptoms on review. MENTAL STATUS EXAM: Oriented to self and situation. Speech has some latency, coherent. Abstraction fair, computation impaired, language function intact, attention span short. Mood and affect remain somewhat labile. LABORATORY DATA: Reviewed. IMPRESSION: Unchanged from initial note. PLAN: Valproic acid level is 10. Depakote will be increased from Depakote ER 250 at bedtime to 500 at bedtime. Check CBC, CMP, valproic acid level in 3 days. Maintain Risperdal, Remeron, Zoloft as before, together with Zyprexa p.r.n. Review drug contractions risk, benefit ratio, with no further change. Per activity therapy report, he did couple of short groups, he likes to sleep, keeps to self most of the time. DIANE KABA MD DR: LAURY/rosalva JOB#: [id number] / [id number]
[2017-01-12] MEDS ORDERED: SERT50TA PO (23:26)
[2017-01-13 06:00] VITALS: BP 187/65
[2017-01-13] MEDS: LEVOTHYROXINE 25 MCG TABLET. PO SCH (06:22)
[2017-01-13] MEDS: COLESTIPOL HCL 1 GM TABLET PO SCH ×3 (06:22→20:08)
[2017-01-13 06:29] LABS: BASO # 0.1 x10^3/uL (0.0-0.2); BASO % 2 % (0-3); EOS # 0.4 x10^3/uL (0.0-0.7); EOS % 6 % (0-3); HEMATOCRIT 23.5 % (39.0-53.0); HEMOGLOBIN 7.7 g/dL (13.0-17.5); LYMPH # 1.2 x10^3/uL (1.0-4.8); LYMPH % 19 % (24-48); MEAN CORPUSCULAR HEMOGLOBIN 30 pg (25-35); MEAN CORPUSCULAR HGB CONC 33 g/dL (31-37); MEAN CORPUSCULAR VOLUME 92 fL (79-100); MONO # 0.5 x10^3/uL (0.0-1.1); MONO % 7 % (0-9); NEUT # 4.3 x10^3uL (1.8-7.7); NEUT % 65 % (31-73); PLATELET COUNT 268 x10^3/uL (140-400); RED BLOOD COUNT 2.55 x10^6/uL (4.30-5.70); RED CELL DISTRIBUTION WIDTH 17.4 % (11.5-14.5); WHITE BLOOD COUNT 6.5 x10^3/uL (4.0-11.0)
[2017-01-13 06:37] LABS: ALBUMIN 2.6 g/dL (3.4-5.0); ALBUMIN/GLOBULIN RATIO 0.9 (1.0-1.7); CALCIUM 8.2 mg/dL (8.5-10.1); CREATININE 2.2 mg/dL (0.7-1.3); GFR 28.5; TOTAL BILIRUBIN 0.4 mg/dL (0.2-1.0); TOTAL PROTEIN 5.4 g/dL (6.4-8.2)
[2017-01-13] MEDS: PANTOPRAZOLE 40 MG TABLET. PO SCH (07:39)
[2017-01-13] MEDS: TAMSULOSIN 0.4 MG CAP.ER.24H. PO SCH (07:39)
[2017-01-13] MEDS: SERTRALINE 50 MG TABLET. PO SCH (07:39)
[2017-01-13] MEDS: FINASTERIDE 5 MG TABLET PO SCH (07:39)
[2017-01-13] MEDS: risperiDONE 1 MG TABLET. PO SCH ×2 (07:40→20:08)
[2017-01-13] MEDS: ALLOPURINOL 100 MG TABLET. PO SCH (07:40)
[2017-01-13] MEDS: ASCORBIC ACID 500 MG TABLET PO SCH ×2 (07:40→20:08)
[2017-01-13] MEDS: MULTIVITAMIN with MINERAL TABLET. PO SCH (07:40)
[2017-01-13] MEDS: METHYLDOPA 250 MG TABLET PO SCH ×2 (07:46→20:08)
[2017-01-13] MEDS: FERROUS SULFATE 325 MG TABLET. PO SCH (07:46)
[2017-01-13 16:05] VITALS: BP 167/70
--- NOTE | 2017-01-13 16:52 | PN ---
DATE: 01/12/2017 This late entry 01/12/2017 covers elements not covered in my initial note of 01/12/2017. SUBJECTIVE: I met with the patient evening of 01/12/2017. Per nursing report, the patient has been "cranky." He has been irritable, somewhat labile, compliant with his medications. Hemoglobin is dropping and I will defer to Dr. Encarnacion. Serum albumin is low as well and question has been raised about possible hospice care, but again will defer to Dr. Encarnacion. REVIEW OF SYSTEMS: I met with him in his room, he is lying in bed, complains of being tired, slightly hard of hearing. No CV, , pulmonary, eye system symptoms on review. MENTAL STATUS EXAM: Oriented to himself at times to situation. Speech moderate latency, often responses monosyllabic, abstraction fair, computation impaired, language function intact, attention span short. Mood and affect depressed, anxious, at times labile. LABORATORY DATA: Reviewed. IMPRESSION: Unchanged from initial note. PLAN: Continue current psychotropics, may need to gradually increase the Zoloft, reduce the Risperdal if no clear psychotic symptoms are noted. Reviewed interactions, risk, benefit ratio favors, no further change. DIANE KABA MD DR: LAURY/rosalva JOB#: [id number] / [id number]
[2017-01-13] MEDS: WARFARIN 4 MG TABLET. PO SCH (16:55)
[2017-01-13] MEDS: MIRTAZAPINE 30 MG TABLET PO SCH (20:08)
[2017-01-13] MEDS: DIVALPROEX ER 500 MG TAB.ER.24H PO SCH (20:08)
--- NOTE | 2017-01-13 22:49 | PDOC ---
Exam Gonzales Demential Exam: Gonzales Note: Please also refer to the separate dictated note~for this date of service dictated separately.~Patient seen individually. Discussed the patient with Nursing staff reviewed the chart.~Reviewed interim history and current functioning. Reviewed vital signs,~Labs/ Radiology~and current medications noted below. Continue current treatment with the changes noted in the dictated addendum note Assessment: Vital Signs: Vital Signs Date Time Temp Pulse Resp B/P (MAP) Pulse Ox O2 Delivery O2 Flow Rate FiO2 01/13/17 20:08 72 167/70 01/13/17 16:05 97.0 20 100 01/13/17 06:00 Room Air I&O Intake and Output 01/14/17 07:00 Intake Total 1200 ml Balance 1200 ml Intake Oral 1200 ml Labs: Laboratory Tests Test 01/13/17 06:12 White Blood Count 6.5 x10^3/uL (4.0-11.0) Red Blood Count 2.55 x10^6/uL (4.30-5.70) L Hemoglobin 7.7 g/dL (13.0-17.5) L Hematocrit 23.5 % (39.0-53.0) L Mean Corpuscular Volume 92 fL (79-100) Mean Corpuscular Hemoglobin 30 pg (25-35) Mean Corpuscular Hemoglobin Concent 33 g/dL (31-37) Red Cell Distribution Width 17.4 % (11.5-14.5) H Platelet Count 268 x10^3/uL (140-400) Neutrophils (%) (Auto) 65 % (31-73) Lymphocytes (%) (Auto) 19 % (24-48) L Monocytes (%) (Auto) 7 % (0-9) Eosinophils (%) (Auto) 6 % (0-3) H Basophils (%) (Auto) 2 % (0-3) Neutrophils # (Auto) 4.3 x10^3uL (1.8-7.7) Lymphocytes # (Auto) 1.2 x10^3/uL (1.0-4.8) Monocytes # (Auto) 0.5 x10^3/uL (0.0-1.1) Eosinophils # (Auto) 0.4 x10^3/uL (0.0-0.7) Basophils # (Auto) 0.1 x10^3/uL (0.0-0.2) Sodium Level 139 mmol/L (136-145) Potassium Level 5.0 mmol/L (3.5-5.1) Chloride Level 111 mmol/L (98-107) H Carbon Dioxide Level 21 mmol/L (21-32) Anion Gap 7 (6-14) Blood Urea Nitrogen 45 mg/dL (8-26) H Creatinine 2.2 mg/dL (0.7-1.3) H Estimated GFR (Cockcroft-Gault) 28.5 BUN/Creatinine Ratio 20 (6-20) Glucose Level 82 mg/dL (70-99) Calcium Level 8.2 mg/dL (8.5-10.1) L Total Bilirubin 0.4 mg/dL (0.2-1.0) Aspartate Amino Transferase (AST) 16 U/L (15-37) Alanine Aminotransferase (ALT) 15 U/L (16-63) L Alkaline Phosphatase 62 U/L (46-116) Total Protein 5.4 g/dL (6.4-8.2) L Albumin 2.6 g/dL (3.4-5.0) L Albumin/Globulin Ratio 0.9 (1.0-1.7) L Current Medications: Meds: Current Medications Sodium Chloride 500 ml @ 0 mls/hr 1X ONCE IV Last administered on 01/06/17 09 :45; Start 01/06/17 at 09:30; Stop 01/06/17 at 09:55; Status DC Sodium Polystyrene Sulfonate (Kayexalate) 15 gm 1X ONCE PO Last administered on 01/06/17 10:40; Start 01/06/17 at 10:00; Stop 01/06/17 at 10:01; Status DC Influenza Virus Vaccine Quadrival (Fluarix Quad [id number] Syringe) 0.5 ml 1X ONCE VAX IM Last administered on 01/07/17 18:12; Start 01/07/17 at 09:00; Stop 01/07/17 at 09:01; Status DC Olanzapine (ZyPREXA ZYDIS) 2.5 mg PRN Q2HR PRN PO Agitation ; Start 01/06/17 at 12:30 Acetaminophen (Tylenol) 650 mg PRN Q4HRS PRN PO PAIN / TEMP; Start 01/06/17 at 12:45 Allopurinol (Zyloprim) 100 mg DAILY PO Last administered on 01/13/17 07:40; Start 01/07/17 at 09:00 Ascorbic Acid (Vitamin C) 500 mg BID PO Last administered on 01/13/17 20:08; Start 01/06/17 at 21:00 Bisacodyl (Dulcolax Supp) 10 mg PRN DAILY PRN RC CONSTIPATION; Start 01/06/17 at 12:45 Finasteride (Proscar) 5 mg DAILY PO Last administered on 01/13/17 07:39; Start 01/07/17 at 09:00 Albuterol/ Ipratropium (Duoneb) 3 ml PRN TID PRN NEB WHEEZING; Start 01/06/17 at 12:45 Al Hydroxide/Mg Hydroxide (Mylanta Plus Xs) 10 ml PRN Q2HR PRN PO INDIGESTION; Start 01/06/17 at 12:45 Magnesium Hydroxide (Milk Of Magnesia) 400 mg PRN QHS PRN PO CONSTIPATION; Start 01/06/17 at 12:45 Methyldopa (Aldomet) 500 mg BID PO Last administered on 01/13/17 20:08; Start 01/06/17 at 21:00 Nitroglycerin (Nitrostat) 0.4 mg PRN Q5MIN PRN SL CHEST PAIN; Start 01/06/17 at 12:45 Silver Sulfadiazine (Silvadene) 1 sapphire BID TP Last administered on 01/08/17 09: 51; Start 01/06/17 at 21:00; Stop 01/08/17 at 22:55; Status DC Tamsulosin HCl (Flomax) 0.4 mg DAILY PO Last administered on 01/13/17 07:39; Start 01/07/17 at 09:00 Warfarin Sodium (Coumadin) 5 mg DAILY16 PO ; Start 01/06/17 at 16:00; Stop 01/06 at 16:00; Status DC Non-Formulary Medication 30 ml DAILY PO ; Start 01/07/17 at 09:00; Stop at 09:00; Status DC Colestipol HCl (Colestid) 5 gm BID PO Last administered on 01/07/17 19:45; Start 01/06/17 at 21:00; Stop 01/08/17 at 08:58; Status DC Mirtazapine (Remeron) 30 mg QHS PO Last administered on 01/13/17 20:08; Start 01/06/17 at 21:00 Risperidone (RisperDAL) 1 mg BID PO Last administered on 01/13/17 20:08; Start 01/06/17 at 21:00 Sertraline HCl (Zoloft) 50 mg DAILY PO Last administered on 01/13/17 07:39; Start 01/07/17 at 09:00 Multivitamins/ Calcium (Thera-M Plus) 1 tab DAILY PO Last administered on 07:40; Start 01/07/17 at 09:00 Warfarin Sodium (Coumadin Per Pharmacy) 1 each PRN DAILY PRN MC SEE COMMENTS Last administered on 01/11/17 14:41; Start 01/07/17 at 11:00; Stop 01/12/17 at 12:09; Status DC Warfarin Sodium (Coumadin - No Dose Today) 1 each 1X WARF ONCE MC Last administered on 01/07/17 16:00; Start 01/07/17 at 16:00; Stop 01/07/17 at 16:01 ; Status DC Levothyroxine Sodium (Synthroid) 25 mcg DAILY07 PO Last administered on 06:22; Start 01/08/17 at 07:00 Divalproex Sodium (Depakote Er) 250 mg QHS PO Last administered on 01/10/17 20 :01; Start 01/07/17 at 21:00; Stop 01/11/17 at 10:17; Status DC Colestipol HCl (Colestid) 5 gm BID@0700,2100 PO Last administered on 01/13/17 20:08; Start 01/08/17 at 09:00 Warfarin Sodium (Coumadin) 5 mg 1X WARF ONCE PO Last administered on 17:31; Start 01/08/17 at 16:00; Stop 01/08/17 at 16:01; Status DC Warfarin Sodium (Coumadin) 5 mg 1X WARF ONCE PO Last administered on 17:09; Start 01/09/17 at 16:00; Stop 01/09/17 at 16:01; Status DC Warfarin Sodium (Coumadin) 4 mg 1X WARF ONCE PO Last administered on 17:57; Start 01/10/17 at 16:00; Stop 01/10/17 at 16:01; Status DC Divalproex Sodium (Depakote Er) 500 mg QHS PO Last administered on 01/13/17 20 :08; Start 01/11/17 at 21:00 Warfarin Sodium (Coumadin) 4 mg 1X WARF ONCE PO Last administered on 16:35; Start 01/11/17 at 16:00; Stop 01/12/17 at 12:09; Status DC Pantoprazole Sodium (Protonix) 40 mg DAILYAC PO Last administered on 01/13/17 07:39; Start 01/12/17 at 10:30 Vitamin D (Vitamin D3) 50,000 unit WEEKLY PO Last administered on 01/12/17 10: 30; Start 01/12/17 at 10:30 Ferrous Sulfate (Feosol) 325 mg DAILYWBKFT PO Last administered on 01/13/17 07 :46; Start 01/13/17 at 08:00 Warfarin Sodium (Coumadin - No Dose Today) 1 each 1X WARF ONCE MC ; Start 01/12 at 16:00; Stop 01/12/17 at 16:00; Status DC Warfarin Sodium (Coumadin Per Pharmacy) 1 each PRN DAILY PRN MC SEE COMMENTS Last administered on 01/13/17 14:02; Start 01/13/17 at 13:45 Warfarin Sodium (Coumadin) 4 mg DAILY16 PO Last administered on 01/13/17 16:55 ; Start 01/13/17 at 16:00 Active Scripts Active Reported Zoloft (Sertraline Hcl) 50 Mg Tablet 50 Mg PO DAILY Prosource Plus Liquid Packet (Amino Ac/Protein Hydr/Whey Pro) 30 Ml Liquid.pkt 30 Ml PO DAILY Dulcolax (Bisacodyl) 10 Mg Supp.rect 10 Mg RC PRN DAILY PRN Silvadene (Silver Sulfadiazine) 20 Gm Cream..g. 1 Sapphire TP BID NITROGLYCERIN SubLingual (Nitroglycerin) 0.4 Mg Tab.subl 0.4 Mg SL PRN Q5MIN PRN May repeat x3 doses Maalox Maximum Strength Susp (Mag Hydrox/Al Hydrox/Simeth) 355 Ml Oral.susp 10 Ml PO PRN Q2HR PRN Duoneb 0.5-3(2.5) Mg/3 Ml (Albuterol/Ipratropium) 3 Ml Ampul.neb 3 Ml NEB PRN TID PRN Milk Of Magnesia (Magnesium Hydroxide) 400 Mg/5 Ml Oral.susp 2,400 Mg PO PRN Q3DAYS PRN Tylenol (Acetaminophen) 325 Mg Tablet 650 Mg PO PRN Q4HRS PRN Coumadin (Warfarin Sodium) 5 Mg Tablet 5 Mg PO DAILY16 Multivitamins (Multivitamin) 1 Each Tablet 1 Tab PO DAILY Flomax (Tamsulosin Hcl) 0.4 Mg Cap.er.24h 0.4 Mg PO DAILY Methyldopa 250 Mg Tablet 500 Mg PO BID Hold for SBP <110 or pulse < 55 Mirtazapine 30 Mg Tablet 30 Mg PO QHS Finasteride 5 Mg Tablet 5 Mg PO DAILY Allopurinol 100 Mg Tablet 100 Mg PO DAILY Ascorbic Acid 500 Mg Tablet 500 Mg PO BID Colestipol Hcl 5 Gm Packet 5 Gm PO BID Risperidone 1 Mg Tablet 1 Mg PO BID Diagnosis: Problems: (1) Aggressive behavior (2) Bipolar affective, mixed, sev w/ psych (3) Anxiety disorder (4) Dementia, vascular, with delusions (5) Dementia, vascular, with depression (6) Mild cognitive disorder (7) Major depressive disorder, recurrent episode (8) Psychotic depression (9) Impulse control disorder DIANE KABA MD Jan 13, 2017 22:49
[2017-01-14 05:45] VITALS: BP 170/77
[2017-01-14] MEDS: COLESTIPOL HCL 1 GM TABLET PO SCH ×2 (05:54→19:39)
[2017-01-14] MEDS: LEVOTHYROXINE 25 MCG TABLET. PO SCH (05:54)
[2017-01-14] MEDS: ASCORBIC ACID 500 MG TABLET PO SCH ×2 (07:18→19:38)
[2017-01-14] MEDS: FINASTERIDE 5 MG TABLET PO SCH (07:18)
[2017-01-14] MEDS: ALLOPURINOL 100 MG TABLET. PO SCH (07:18)
[2017-01-14] MEDS: FERROUS SULFATE 325 MG TABLET. PO SCH (07:18)
[2017-01-14] MEDS: risperiDONE 1 MG TABLET. PO SCH ×2 (07:18→19:38)
[2017-01-14] MEDS: MULTIVITAMIN with MINERAL TABLET. PO SCH (07:18)
[2017-01-14] MEDS: SERTRALINE 50 MG TABLET. PO SCH (07:19)
[2017-01-14] MEDS: TAMSULOSIN 0.4 MG CAP.ER.24H. PO SCH (07:19)
[2017-01-14] MEDS: METHYLDOPA 250 MG TABLET PO SCH ×2 (07:19→19:39)
[2017-01-14] MEDS: PANTOPRAZOLE 40 MG TABLET. PO SCH (07:19)
[2017-01-14 08:31] LABS: VAL ACID 33 mcg/mL (50-100)
--- NOTE | 2017-01-14 10:22 | PN ---
DATE: 01/13/2017 PSYCHIATRIC PROGRESS NOTE This late entry 01/13/2017 covers elements, not covered in my initial note of 01/13/2017. SUBJECTIVE: I met with the patient evening of 01/13/2017. Hemoglobin is 7.7. We will defer to Dr. Bennett for further management. He has been irritable at times. Nursing staff have been discussing with the patient's about possible hospice care post-discharge. Remains withdrawn, spends much time in his room, which is better, I met with him. REVIEW OF SYSTEMS: Hard of hearing. Impaired ambulation. No CV, , pulmonary, eye system symptoms on review. MENTAL STATUS EXAM: Oriented to himself, at times to situation. Speech, often responses monosyllabic, short sharp responses. Abstraction fair, computation impaired, language function intact. Mood and affect still remain somewhat depressed, irritable. LABORATORY DATA: Reviewed. IMPRESSION: Unchanged from initial note. PLAN: Continue current psychotropics. Check CBC, CMP, valproic acid level 01/14/2017, adjust Depakote to reach a therapeutic level, then consider reducing Risperdal. We have increased the Zoloft to 50 mg a day. Reviewed drug interactions. Risk/benefit ratio favors no further change. MAN Isaías KABA MD DR: LAURY/rosalva JOB#: [id number] / [id number]
[2017-01-14 15:44] VITALS: BP 154/70
[2017-01-14] MEDS: WARFARIN 4 MG TABLET. PO SCH (17:43)
[2017-01-14] MEDS: MIRTAZAPINE 30 MG TABLET PO SCH (19:38)
[2017-01-14] MEDS: DIVALPROEX ER 250 MG TAB.ER.24H. PO SCH (19:41)
--- NOTE | 2017-01-14 20:30 | PDOC ---
Exam Gonzales Demential Exam: Gonzales Note: Please also refer to the separate dictated note~for this date of service dictated separately.~Patient seen individually. Discussed the patient with Nursing staff reviewed the chart.~Reviewed interim history and current functioning. Reviewed vital signs,~Labs/ Radiology~and current medications noted below. Continue current treatment with the changes noted in the dictated addendum note Assessment: Vital Signs: Vital Signs Date Time Temp Pulse Resp B/P (MAP) Pulse Ox O2 Delivery O2 Flow Rate FiO2 01/14/17 19:39 78 154/70 01/14/17 15:44 97.6 20 99 01/13/17 06:00 Room Air I&O Intake and Output 01/15/17 07:00 Intake Total 780 ml Balance 780 ml Intake Oral 780 ml # Bowel Movements 1 Labs: Laboratory Tests Test 01/14/17 07:47 Valproic Acid Level 33 mcg/mL (50-100) L Valproic Acid Last Dose Date 01/13/2017 Valproic Acid Last Dose Time 2100 Current Medications: Meds: Current Medications Sodium Chloride 500 ml @ 0 mls/hr 1X ONCE IV Last administered on 01/06/17 09 :45; Start 01/06/17 at 09:30; Stop 01/06/17 at 09:55; Status DC Sodium Polystyrene Sulfonate (Kayexalate) 15 gm 1X ONCE PO Last administered on 01/06/17 10:40; Start 01/06/17 at 10:00; Stop 01/06/17 at 10:01; Status DC Influenza Virus Vaccine Quadrival (Fluarix Quad [id number] Syringe) 0.5 ml 1X ONCE VAX IM Last administered on 01/07/17 18:12; Start 01/07/17 at 09:00; Stop 01/07/17 at 09:01; Status DC Olanzapine (ZyPREXA ZYDIS) 2.5 mg PRN Q2HR PRN PO Agitation ; Start 01/06/17 at 12:30 Acetaminophen (Tylenol) 650 mg PRN Q4HRS PRN PO PAIN / TEMP; Start 01/06/17 at 12:45 Allopurinol (Zyloprim) 100 mg DAILY PO Last administered on 01/14/17 07:18; Start 01/07/17 at 09:00 Ascorbic Acid (Vitamin C) 500 mg BID PO Last administered on 01/14/17 19:38; Start 01/06/17 at 21:00 Bisacodyl (Dulcolax Supp) 10 mg PRN DAILY PRN RC CONSTIPATION; Start 01/06/17 at 12:45 Finasteride (Proscar) 5 mg DAILY PO Last administered on 01/14/17 07:18; Start 01/07/17 at 09:00 Albuterol/ Ipratropium (Duoneb) 3 ml PRN TID PRN NEB WHEEZING; Start 01/06/17 at 12:45 Al Hydroxide/Mg Hydroxide (Mylanta Plus Xs) 10 ml PRN Q2HR PRN PO INDIGESTION; Start 01/06/17 at 12:45 Magnesium Hydroxide (Milk Of Magnesia) 400 mg PRN QHS PRN PO CONSTIPATION; Start 01/06/17 at 12:45 Methyldopa (Aldomet) 500 mg BID PO Last administered on 01/14/17 19:39; Start 01/06/17 at 21:00 Nitroglycerin (Nitrostat) 0.4 mg PRN Q5MIN PRN SL CHEST PAIN; Start 01/06/17 at 12:45 Silver Sulfadiazine (Silvadene) 1 sapphire BID TP Last administered on 01/08/17 09: 51; Start 01/06/17 at 21:00; Stop 01/08/17 at 22:55; Status DC Tamsulosin HCl (Flomax) 0.4 mg DAILY PO Last administered on 01/14/17 07:19; Start 01/07/17 at 09:00 Warfarin Sodium (Coumadin) 5 mg DAILY16 PO ; Start 01/06/17 at 16:00; Stop 01/06 at 16:00; Status DC Non-Formulary Medication 30 ml DAILY PO ; Start 01/07/17 at 09:00; Stop at 09:00; Status DC Colestipol HCl (Colestid) 5 gm BID PO Last administered on 01/07/17 19:45; Start 01/06/17 at 21:00; Stop 01/08/17 at 08:58; Status DC Mirtazapine (Remeron) 30 mg QHS PO Last administered on 01/14/17 19:38; Start 01/06/17 at 21:00 Risperidone (RisperDAL) 1 mg BID PO Last administered on 01/14/17 19:38; Start 01/06/17 at 21:00 Sertraline HCl (Zoloft) 50 mg DAILY PO Last administered on 01/14/17 07:19; Start 01/07/17 at 09:00 Multivitamins/ Calcium (Thera-M Plus) 1 tab DAILY PO Last administered on 07:18; Start 01/07/17 at 09:00 Warfarin Sodium (Coumadin Per Pharmacy) 1 each PRN DAILY PRN MC SEE COMMENTS Last administered on 01/11/17 14:41; Start 01/07/17 at 11:00; Stop 01/12/17 at 12:09; Status DC Warfarin Sodium (Coumadin - No Dose Today) 1 each 1X WARF ONCE MC Last administered on 01/07/17 16:00; Start 01/07/17 at 16:00; Stop 01/07/17 at 16:01 ; Status DC Levothyroxine Sodium (Synthroid) 25 mcg DAILY07 PO Last administered on 05:54; Start 01/08/17 at 07:00 Divalproex Sodium (Depakote Er) 250 mg QHS PO Last administered on 01/10/17 20 :01; Start 01/07/17 at 21:00; Stop 01/11/17 at 10:17; Status DC Colestipol HCl (Colestid) 5 gm BID@0700,2100 PO Last administered on 01/14/17 19:39; Start 01/08/17 at 09:00 Warfarin Sodium (Coumadin) 5 mg 1X WARF ONCE PO Last administered on 17:31; Start 01/08/17 at 16:00; Stop 01/08/17 at 16:01; Status DC Warfarin Sodium (Coumadin) 5 mg 1X WARF ONCE PO Last administered on 17:09; Start 01/09/17 at 16:00; Stop 01/09/17 at 16:01; Status DC Warfarin Sodium (Coumadin) 4 mg 1X WARF ONCE PO Last administered on 17:57; Start 01/10/17 at 16:00; Stop 01/10/17 at 16:01; Status DC Divalproex Sodium (Depakote Er) 500 mg QHS PO Last administered on 01/13/17 20 :08; Start 01/11/17 at 21:00; Stop 01/14/17 at 19:17; Status DC Warfarin Sodium (Coumadin) 4 mg 1X WARF ONCE PO Last administered on 16:35; Start 01/11/17 at 16:00; Stop 01/12/17 at 12:09; Status DC Pantoprazole Sodium (Protonix) 40 mg DAILYAC PO Last administered on 01/14/17 07:19; Start 01/12/17 at 10:30 Vitamin D (Vitamin D3) 50,000 unit WEEKLY PO Last administered on 01/12/17 10: 30; Start 01/12/17 at 10:30 Ferrous Sulfate (Feosol) 325 mg DAILYWBKFT PO Last administered on 01/14/17 07 :18; Start 01/13/17 at 08:00 Warfarin Sodium (Coumadin - No Dose Today) 1 each 1X WARF ONCE MC ; Start 01/12 at 16:00; Stop 01/12/17 at 16:00; Status DC Warfarin Sodium (Coumadin Per Pharmacy) 1 each PRN DAILY PRN MC SEE COMMENTS Last administered on 01/13/17 14:02; Start 01/13/17 at 13:45 Warfarin Sodium (Coumadin) 4 mg DAILY16 PO Last administered on 01/14/17 17:43 ; Start 01/13/17 at 16:00 Divalproex Sodium (Depakote Er) 750 mg QHS PO Last administered on 01/14/17 19 :41; Start 01/14/17 at 21:00 Active Scripts Active Reported Zoloft (Sertraline Hcl) 50 Mg Tablet 50 Mg PO DAILY Prosource Plus Liquid Packet (Amino Ac/Protein Hydr/Whey Pro) 30 Ml Liquid.pkt 30 Ml PO DAILY Dulcolax (Bisacodyl) 10 Mg Supp.rect 10 Mg RC PRN DAILY PRN Silvadene (Silver Sulfadiazine) 20 Gm Cream..g. 1 Sapphire TP BID NITROGLYCERIN SubLingual (Nitroglycerin) 0.4 Mg Tab.subl 0.4 Mg SL PRN Q5MIN PRN May repeat x3 doses Maalox Maximum Strength Susp (Mag Hydrox/Al Hydrox/Simeth) 355 Ml Oral.susp 10 Ml PO PRN Q2HR PRN Duoneb 0.5-3(2.5) Mg/3 Ml (Albuterol/Ipratropium) 3 Ml Ampul.neb 3 Ml NEB PRN TID PRN Milk Of Magnesia (Magnesium Hydroxide) 400 Mg/5 Ml Oral.susp 2,400 Mg PO PRN Q3DAYS PRN Tylenol (Acetaminophen) 325 Mg Tablet 650 Mg PO PRN Q4HRS PRN Coumadin (Warfarin Sodium) 5 Mg Tablet 5 Mg PO DAILY16 Multivitamins (Multivitamin) 1 Each Tablet 1 Tab PO DAILY Flomax (Tamsulosin Hcl) 0.4 Mg Cap.er.24h 0.4 Mg PO DAILY Methyldopa 250 Mg Tablet 500 Mg PO BID Hold for SBP <110 or pulse < 55 Mirtazapine 30 Mg Tablet 30 Mg PO QHS Finasteride 5 Mg Tablet 5 Mg PO DAILY Allopurinol 100 Mg Tablet 100 Mg PO DAILY Ascorbic Acid 500 Mg Tablet 500 Mg PO BID Colestipol Hcl 5 Gm Packet 5 Gm PO BID Risperidone 1 Mg Tablet 1 Mg PO BID Diagnosis: Problems: (1) Aggressive behavior (2) Bipolar affective, mixed, sev w/ psych (3) Anxiety disorder (4) Dementia, vascular, with delusions (5) Dementia, vascular, with depression (6) Mild cognitive disorder (7) Major depressive disorder, recurrent episode (8) Psychotic depression (9) Impulse control disorder DIANE KABA MD Jan 14, 2017 20:30
[2017-01-15] MEDS: LEVOTHYROXINE 25 MCG TABLET. PO SCH (05:23)
[2017-01-15 06:08] LABS: FECAL OB PT POSITIVE (NEG)
[2017-01-15 06:17] VITALS: BP 155/68
[2017-01-15] MEDS: COLESTIPOL HCL 1 GM TABLET PO SCH ×2 (07:57→19:25)
[2017-01-15] MEDS: FERROUS SULFATE 325 MG TABLET. PO SCH (08:44)
[2017-01-15] MEDS: FINASTERIDE 5 MG TABLET PO SCH (08:44)
[2017-01-15] MEDS: ALLOPURINOL 100 MG TABLET. PO SCH (08:44)
[2017-01-15] MEDS: SERTRALINE 50 MG TABLET. PO SCH (08:44)
[2017-01-15] MEDS: TAMSULOSIN 0.4 MG CAP.ER.24H. PO SCH (08:44)
[2017-01-15] MEDS: risperiDONE 1 MG TABLET. PO SCH ×2 (08:44→19:25)
[2017-01-15] MEDS: ASCORBIC ACID 500 MG TABLET PO SCH ×2 (08:44→19:25)
[2017-01-15] MEDS: MULTIVITAMIN with MINERAL TABLET. PO SCH (08:44)
[2017-01-15] MEDS: METHYLDOPA 250 MG TABLET PO SCH ×2 (08:45→19:28)
[2017-01-15] MEDS: PANTOPRAZOLE 40 MG TABLET. PO SCH (08:45)
--- NOTE | 2017-01-15 10:00 | PN ---
DATE: 01/14/2017 PSYCHIATRIC PROGRESS NOTE This late entry 01/14/2017 covers elements, not covered in my initial note of 01/14/2017. SUBJECTIVE: I met with the patient evening of 01/14/2017. The patient continues to be somewhat withdrawn, anxious, labile at times, but redirects. REVIEW OF SYSTEMS: Ambulation impaired. No CV, , pulmonary, eye, ENT system symptoms on review. Reliability poor. MENTAL STATUS EXAM: Oriented to himself. Insight, judgment, recent memory is impaired. Language function intact. Attention span short. Mood and affect remain somewhat labile. LABORATORY DATA: Reviewed. Valproic acid level is 33. IMPRESSION: Unchanged from initial note. PLAN: Increase Depakote ER from 500 mg at bedtime to 750 mg at bedtime. Check CBC, CMP, valproic acid level in 3 days. Maintain rest of the psychotropics unchanged. Reviewed drug contraction. Risk/benefit ratio favors no further change. DIANE KABA MD DR: LAURY/rosalva JOB#: [id number] / [id number]
[2017-01-15 16:02] VITALS: BP 157/71
[2017-01-15] MEDS: WARFARIN 4 MG TABLET. PO SCH (17:04)
[2017-01-15] MEDS: DIVALPROEX ER 250 MG TAB.ER.24H. PO SCH (19:25)
[2017-01-15] MEDS: MIRTAZAPINE 30 MG TABLET PO SCH (19:25)
--- NOTE | 2017-01-15 20:20 | PDOC ---
Exam Gonzales Demential Exam: Gonzales Note: Please also refer to the separate dictated note~for this date of service dictated separately.~Patient seen individually. Discussed the patient with Nursing staff reviewed the chart.~Reviewed interim history and current functioning. Reviewed vital signs,~Labs/ Radiology~and current medications noted below. Continue current treatment with the changes noted in the dictated addendum note Assessment: Vital Signs: Vital Signs Date Time Temp Pulse Resp B/P (MAP) Pulse Ox O2 Delivery O2 Flow Rate FiO2 01/15/17 19:28 75 157/71 01/15/17 16:02 97.9 20 99 Room Air I&O Intake and Output 01/16/17 07:00 Intake Total 1760 ml Balance 1760 ml Intake Oral 1760 ml # Bowel Movements 1 Labs: Laboratory Tests Test 01/15/17 05:40 01/15/17 14:32 Stool Occult Blood Positive (NEG) Prothrombin Time 30.0 SEC (9.4-11.4) H Prothrombin Time INR 3.0 (0.9-1.1) H Current Medications: Meds: Current Medications Sodium Chloride 500 ml @ 0 mls/hr 1X ONCE IV Last administered on 01/06/17 09 :45; Start 01/06/17 at 09:30; Stop 01/06/17 at 09:55; Status DC Sodium Polystyrene Sulfonate (Kayexalate) 15 gm 1X ONCE PO Last administered on 01/06/17 10:40; Start 01/06/17 at 10:00; Stop 01/06/17 at 10:01; Status DC Influenza Virus Vaccine Quadrival (Fluarix Quad 6033-5575 Syringe) 0.5 ml 1X ONCE VAX IM Last administered on 01/07/17 18:12; Start 01/07/17 at 09:00; Stop 01/07/17 at 09:01; Status DC Olanzapine (ZyPREXA ZYDIS) 2.5 mg PRN Q2HR PRN PO Agitation ; Start 01/06/17 at 12:30 Acetaminophen (Tylenol) 650 mg PRN Q4HRS PRN PO PAIN / TEMP; Start 01/06/17 at 12:45 Allopurinol (Zyloprim) 100 mg DAILY PO Last administered on 01/15/17 08:44; Start 01/07/17 at 09:00 Ascorbic Acid (Vitamin C) 500 mg BID PO Last administered on 01/15/17 19:25; Start 01/06/17 at 21:00 Bisacodyl (Dulcolax Supp) 10 mg PRN DAILY PRN RC CONSTIPATION; Start 01/06/17 at 12:45 Finasteride (Proscar) 5 mg DAILY PO Last administered on 01/15/17 08:44; Start 01/07/17 at 09:00 Albuterol/ Ipratropium (Duoneb) 3 ml PRN TID PRN NEB WHEEZING; Start 01/06/17 at 12:45 Al Hydroxide/Mg Hydroxide (Mylanta Plus Xs) 10 ml PRN Q2HR PRN PO INDIGESTION; Start 01/06/17 at 12:45 Magnesium Hydroxide (Milk Of Magnesia) 400 mg PRN QHS PRN PO CONSTIPATION; Start 01/06/17 at 12:45 Methyldopa (Aldomet) 500 mg BID PO Last administered on 01/15/17 19:28; Start 01/06/17 at 21:00 Nitroglycerin (Nitrostat) 0.4 mg PRN Q5MIN PRN SL CHEST PAIN; Start 01/06/17 at 12:45 Silver Sulfadiazine (Silvadene) 1 sapphire BID TP Last administered on 01/08/17 09: 51; Start 01/06/17 at 21:00; Stop 01/08/17 at 22:55; Status DC Tamsulosin HCl (Flomax) 0.4 mg DAILY PO Last administered on 01/15/17 08:44; Start 01/07/17 at 09:00 Warfarin Sodium (Coumadin) 5 mg DAILY16 PO ; Start 01/06/17 at 16:00; Stop 01/06 at 16:00; Status DC Non-Formulary Medication 30 ml DAILY PO ; Start 01/07/17 at 09:00; Stop at 09:00; Status DC Colestipol HCl (Colestid) 5 gm BID PO Last administered on 01/07/17 19:45; Start 01/06/17 at 21:00; Stop 01/08/17 at 08:58; Status DC Mirtazapine (Remeron) 30 mg QHS PO Last administered on 01/15/17 19:25; Start 01/06/17 at 21:00 Risperidone (RisperDAL) 1 mg BID PO Last administered on 01/15/17 19:25; Start 01/06/17 at 21:00 Sertraline HCl (Zoloft) 50 mg DAILY PO Last administered on 01/15/17 08:44; Start 01/07/17 at 09:00 Multivitamins/ Calcium (Thera-M Plus) 1 tab DAILY PO Last administered on 08:44; Start 01/07/17 at 09:00 Warfarin Sodium (Coumadin Per Pharmacy) 1 each PRN DAILY PRN MC SEE COMMENTS Last administered on 01/11/17 14:41; Start 01/07/17 at 11:00; Stop 01/12/17 at 12:09; Status DC Warfarin Sodium (Coumadin - No Dose Today) 1 each 1X WARF ONCE MC Last administered on 01/07/17 16:00; Start 01/07/17 at 16:00; Stop 01/07/17 at 16:01 ; Status DC Levothyroxine Sodium (Synthroid) 25 mcg DAILY07 PO Last administered on 05:23; Start 01/08/17 at 07:00 Divalproex Sodium (Depakote Er) 250 mg QHS PO Last administered on 01/10/17 20 :01; Start 01/07/17 at 21:00; Stop 01/11/17 at 10:17; Status DC Colestipol HCl (Colestid) 5 gm BID@0700,2100 PO Last administered on 01/15/17 19:25; Start 01/08/17 at 09:00 Warfarin Sodium (Coumadin) 5 mg 1X WARF ONCE PO Last administered on 17:31; Start 01/08/17 at 16:00; Stop 01/08/17 at 16:01; Status DC Warfarin Sodium (Coumadin) 5 mg 1X WARF ONCE PO Last administered on 17:09; Start 01/09/17 at 16:00; Stop 01/09/17 at 16:01; Status DC Warfarin Sodium (Coumadin) 4 mg 1X WARF ONCE PO Last administered on 17:57; Start 01/10/17 at 16:00; Stop 01/10/17 at 16:01; Status DC Divalproex Sodium (Depakote Er) 500 mg QHS PO Last administered on 01/13/17 20 :08; Start 01/11/17 at 21:00; Stop 01/14/17 at 19:17; Status DC Warfarin Sodium (Coumadin) 4 mg 1X WARF ONCE PO Last administered on 16:35; Start 01/11/17 at 16:00; Stop 01/12/17 at 12:09; Status DC Pantoprazole Sodium (Protonix) 40 mg DAILYAC PO Last administered on 01/15/17 08:45; Start 01/12/17 at 10:30 Vitamin D (Vitamin D3) 50,000 unit WEEKLY PO Last administered on 01/12/17 10: 30; Start 01/12/17 at 10:30 Ferrous Sulfate (Feosol) 325 mg DAILYWBKFT PO Last administered on 01/15/17 08 :44; Start 01/13/17 at 08:00 Warfarin Sodium (Coumadin - No Dose Today) 1 each 1X WARF ONCE MC ; Start 01/12 at 16:00; Stop 01/12/17 at 16:00; Status DC Warfarin Sodium (Coumadin Per Pharmacy) 1 each PRN DAILY PRN MC SEE COMMENTS Last administered on 01/13/17 14:02; Start 01/13/17 at 13:45; Stop 01/15/17 at 17:06; Status DC Warfarin Sodium (Coumadin) 4 mg DAILY16 PO Last administered on 01/14/17 17:43 ; Start 01/13/17 at 16:00; Stop 01/15/17 at 17:06; Status DC Divalproex Sodium (Depakote Er) 750 mg QHS PO Last administered on 01/15/17 19 :25; Start 01/14/17 at 21:00 Warfarin Sodium (Coumadin) 3 mg 1X WARF ONCE PO ; Start 01/16/17 at 16:00; Stop 01/16/17 at 16:01 Warfarin Sodium (Coumadin Per Physician) 1 each PRN DAILY PRN MC SEE COMMENTS; Start 01/15/17 at 17:15 Active Scripts Active Reported Zoloft (Sertraline Hcl) 50 Mg Tablet 50 Mg PO DAILY Prosource Plus Liquid Packet (Amino Ac/Protein Hydr/Whey Pro) 30 Ml Liquid.pkt 30 Ml PO DAILY Dulcolax (Bisacodyl) 10 Mg Supp.rect 10 Mg RC PRN DAILY PRN Silvadene (Silver Sulfadiazine) 20 Gm Cream..g. 1 Sapphire TP BID NITROGLYCERIN SubLingual (Nitroglycerin) 0.4 Mg Tab.subl 0.4 Mg SL PRN Q5MIN PRN May repeat x3 doses Maalox Maximum Strength Susp (Mag Hydrox/Al Hydrox/Simeth) 355 Ml Oral.susp 10 Ml PO PRN Q2HR PRN Duoneb 0.5-3(2.5) Mg/3 Ml (Albuterol/Ipratropium) 3 Ml Ampul.neb 3 Ml NEB PRN TID PRN Milk Of Magnesia (Magnesium Hydroxide) 400 Mg/5 Ml Oral.susp 2,400 Mg PO PRN Q3DAYS PRN Tylenol (Acetaminophen) 325 Mg Tablet 650 Mg PO PRN Q4HRS PRN Coumadin (Warfarin Sodium) 5 Mg Tablet 5 Mg PO DAILY16 Multivitamins (Multivitamin) 1 Each Tablet 1 Tab PO DAILY Flomax (Tamsulosin Hcl) 0.4 Mg Cap.er.24h 0.4 Mg PO DAILY Methyldopa 250 Mg Tablet 500 Mg PO BID Hold for SBP <110 or pulse < 55 Mirtazapine 30 Mg Tablet 30 Mg PO QHS Finasteride 5 Mg Tablet 5 Mg PO DAILY Allopurinol 100 Mg Tablet 100 Mg PO DAILY Ascorbic Acid 500 Mg Tablet 500 Mg PO BID Colestipol Hcl 5 Gm Packet 5 Gm PO BID Risperidone 1 Mg Tablet 1 Mg PO BID Diagnosis: Problems: (1) Bipolar affective, mixed, sev w/ psych (2) Anxiety disorder (3) Dementia, vascular, with delusions (4) Dementia, vascular, with depression (5) Mild cognitive disorder (6) Major depressive disorder, recurrent episode (7) Psychotic depression (8) Impulse control disorder DIANE KABA MD Jan 15, 2017 20:20
[2017-01-16] MEDS: LEVOTHYROXINE 25 MCG TABLET. PO SCH (05:48)
[2017-01-16] MEDS: COLESTIPOL HCL 1 GM TABLET PO SCH ×2 (05:49→19:34)
[2017-01-16 07:07] VITALS: BP 176/81
[2017-01-16 07:11] LABS: HEMATOCRIT 23.9 % (39.0-53.0); HEMOGLOBIN 7.9 g/dL (13.0-17.5); RED BLOOD COUNT 2.57 x10^6/uL (4.30-5.70); RED CELL DISTRIBUTION WIDTH 18.1 % (11.5-14.5); WHITE BLOOD COUNT 6.9 x10^3/uL (4.0-11.0)
[2017-01-16 07:30] LABS: ALBUMIN 2.7 g/dL (3.4-5.0); ALBUMIN/GLOBULIN RATIO 0.9 (1.0-1.7); CALCIUM 8.4 mg/dL (8.5-10.1); CREATININE 2.2 mg/dL (0.7-1.3); GFR 28.5; POTASSIUM 5.3 mmol/L (3.5-5.1); TOTAL BILIRUBIN 0.3 mg/dL (0.2-1.0); TOTAL PROTEIN 5.7 g/dL (6.4-8.2)
[2017-01-16] MEDS: PANTOPRAZOLE 40 MG TABLET. PO SCH (08:11)
[2017-01-16] MEDS: SERTRALINE 50 MG TABLET. PO SCH (08:11)
[2017-01-16] MEDS: ALLOPURINOL 100 MG TABLET. PO SCH (08:11)
[2017-01-16] MEDS: risperiDONE 1 MG TABLET. PO SCH ×2 (08:11→19:32)
[2017-01-16] MEDS: METHYLDOPA 250 MG TABLET PO SCH ×2 (08:11→19:34)
[2017-01-16] MEDS: ASCORBIC ACID 500 MG TABLET PO SCH ×2 (08:11→19:32)
[2017-01-16] MEDS: TAMSULOSIN 0.4 MG CAP.ER.24H. PO SCH (08:11)
[2017-01-16] MEDS: FERROUS SULFATE 325 MG TABLET. PO SCH (08:11)
[2017-01-16] MEDS: FINASTERIDE 5 MG TABLET PO SCH (08:12)
[2017-01-16] MEDS: MULTIVITAMIN with MINERAL TABLET. PO SCH (08:12)
[2017-01-16 15:50] VITALS: BP 138/74
[2017-01-16] MEDS ORDERED: WARFARIN 3 MG TABLET. PO ONE (16:00)
[2017-01-16] MEDS: MIRTAZAPINE 30 MG TABLET PO SCH (19:33)
[2017-01-16] MEDS: DIVALPROEX ER 250 MG TAB.ER.24H. PO SCH (19:33)
--- NOTE | 2017-01-16 20:38 | PDOC ---
Exam Gonzales Demential Exam: Gonzales Note: Please also refer to the separate dictated note~for this date of service dictated separately.~Patient seen individually. Discussed the patient with Nursing staff reviewed the chart.~Reviewed interim history and current functioning. Reviewed vital signs,~Labs/ Radiology~and current medications noted below. Continue current treatment with the changes noted in the dictated addendum note Assessment: Vital Signs: Vital Signs Date Time Temp Pulse Resp B/P (MAP) Pulse Ox O2 Delivery O2 Flow Rate FiO2 01/16/17 19:34 73 138/74 01/16/17 15:50 97.9 18 95 01/15/17 16:02 Room Air I&O Intake and Output 01/17/17 07:00 Intake Total 480 ml Balance 480 ml Intake Oral 480 ml Labs: Laboratory Tests Test 01/16/17 06:53 White Blood Count 6.9 x10^3/uL (4.0-11.0) Red Blood Count 2.57 x10^6/uL (4.30-5.70) L Hemoglobin 7.9 g/dL (13.0-17.5) L Hematocrit 23.9 % (39.0-53.0) L Mean Corpuscular Volume 93 fL (79-100) Mean Corpuscular Hemoglobin 31 pg (25-35) Mean Corpuscular Hemoglobin Concent 33 g/dL (31-37) Red Cell Distribution Width 18.1 % (11.5-14.5) H Platelet Count 290 x10^3/uL (140-400) Sodium Level 140 mmol/L (136-145) Potassium Level 5.3 mmol/L (3.5-5.1) H Chloride Level 110 mmol/L (98-107) H Carbon Dioxide Level 23 mmol/L (21-32) Anion Gap 7 (6-14) Blood Urea Nitrogen 54 mg/dL (8-26) H Creatinine 2.2 mg/dL (0.7-1.3) H Estimated GFR (Cockcroft-Gault) 28.5 BUN/Creatinine Ratio 25 (6-20) H Glucose Level 90 mg/dL (70-99) Calcium Level 8.4 mg/dL (8.5-10.1) L Total Bilirubin 0.3 mg/dL (0.2-1.0) Aspartate Amino Transferase (AST) 16 U/L (15-37) Alanine Aminotransferase (ALT) 14 U/L (16-63) L Alkaline Phosphatase 60 U/L (46-116) Total Protein 5.7 g/dL (6.4-8.2) L Albumin 2.7 g/dL (3.4-5.0) L Albumin/Globulin Ratio 0.9 (1.0-1.7) L Current Medications: Meds: Current Medications Sodium Chloride 500 ml @ 0 mls/hr 1X ONCE IV Last administered on 01/06/17 09 :45; Start 01/06/17 at 09:30; Stop 01/06/17 at 09:55; Status DC Sodium Polystyrene Sulfonate (Kayexalate) 15 gm 1X ONCE PO Last administered on 01/06/17 10:40; Start 01/06/17 at 10:00; Stop 01/06/17 at 10:01; Status DC Influenza Virus Vaccine Quadrival (Fluarix Quad [id number] Syringe) 0.5 ml 1X ONCE VAX IM Last administered on 01/07/17 18:12; Start 01/07/17 at 09:00; Stop 01/07/17 at 09:01; Status DC Olanzapine (ZyPREXA ZYDIS) 2.5 mg PRN Q2HR PRN PO Agitation ; Start 01/06/17 at 12:30 Acetaminophen (Tylenol) 650 mg PRN Q4HRS PRN PO PAIN / TEMP; Start 01/06/17 at 12:45 Allopurinol (Zyloprim) 100 mg DAILY PO Last administered on 01/16/17 08:11; Start 01/07/17 at 09:00 Ascorbic Acid (Vitamin C) 500 mg BID PO Last administered on 01/16/17 19:32; Start 01/06/17 at 21:00 Bisacodyl (Dulcolax Supp) 10 mg PRN DAILY PRN RC CONSTIPATION; Start 01/06/17 at 12:45 Finasteride (Proscar) 5 mg DAILY PO Last administered on 01/16/17 08:12; Start 01/07/17 at 09:00 Albuterol/ Ipratropium (Duoneb) 3 ml PRN TID PRN NEB WHEEZING; Start 01/06/17 at 12:45 Al Hydroxide/Mg Hydroxide (Mylanta Plus Xs) 10 ml PRN Q2HR PRN PO INDIGESTION; Start 01/06/17 at 12:45 Magnesium Hydroxide (Milk Of Magnesia) 400 mg PRN QHS PRN PO CONSTIPATION; Start 01/06/17 at 12:45 Methyldopa (Aldomet) 500 mg BID PO Last administered on 01/16/17 19:34; Start 01/06/17 at 21:00 Nitroglycerin (Nitrostat) 0.4 mg PRN Q5MIN PRN SL CHEST PAIN; Start 01/06/17 at 12:45 Silver Sulfadiazine (Silvadene) 1 sapphire BID TP Last administered on 01/08/17 09: 51; Start 01/06/17 at 21:00; Stop 01/08/17 at 22:55; Status DC Tamsulosin HCl (Flomax) 0.4 mg DAILY PO Last administered on 01/16/17 08:11; Start 01/07/17 at 09:00 Warfarin Sodium (Coumadin) 5 mg DAILY16 PO ; Start 01/06/17 at 16:00; Stop 01/06 at 16:00; Status DC Non-Formulary Medication 30 ml DAILY PO ; Start 01/07/17 at 09:00; Stop at 09:00; Status DC Colestipol HCl (Colestid) 5 gm BID PO Last administered on 01/07/17 19:45; Start 01/06/17 at 21:00; Stop 01/08/17 at 08:58; Status DC Mirtazapine (Remeron) 30 mg QHS PO Last administered on 01/16/17 19:33; Start 01/06/17 at 21:00 Risperidone (RisperDAL) 1 mg BID PO Last administered on 01/16/17 19:32; Start 01/06/17 at 21:00 Sertraline HCl (Zoloft) 50 mg DAILY PO Last administered on 01/16/17 08:11; Start 01/07/17 at 09:00 Multivitamins/ Calcium (Thera-M Plus) 1 tab DAILY PO Last administered on 01/16 08:12; Start 01/07/17 at 09:00 Warfarin Sodium (Coumadin Per Pharmacy) 1 each PRN DAILY PRN MC SEE COMMENTS Last administered on 01/11/17 14:41; Start 01/07/17 at 11:00; Stop 01/12/17 at 12:09; Status DC Warfarin Sodium (Coumadin - No Dose Today) 1 each 1X WARF ONCE MC Last administered on 01/07/17 16:00; Start 01/07/17 at 16:00; Stop 01/07/17 at 16:01 ; Status DC Levothyroxine Sodium (Synthroid) 25 mcg DAILY07 PO Last administered on 05:48; Start 01/08/17 at 07:00 Divalproex Sodium (Depakote Er) 250 mg QHS PO Last administered on 01/10/17 20 :01; Start 01/07/17 at 21:00; Stop 01/11/17 at 10:17; Status DC Colestipol HCl (Colestid) 5 gm BID@0700,2100 PO Last administered on 05:49; Start 01/08/17 at 09:00 Warfarin Sodium (Coumadin) 5 mg 1X WARF ONCE PO Last administered on 17:31; Start 01/08/17 at 16:00; Stop 01/08/17 at 16:01; Status DC Warfarin Sodium (Coumadin) 5 mg 1X WARF ONCE PO Last administered on 17:09; Start 01/09/17 at 16:00; Stop 01/09/17 at 16:01; Status DC Warfarin Sodium (Coumadin) 4 mg 1X WARF ONCE PO Last administered on 17:57; Start 01/10/17 at 16:00; Stop 01/10/17 at 16:01; Status DC Divalproex Sodium (Depakote Er) 500 mg QHS PO Last administered on 01/13/17 20 :08; Start 01/11/17 at 21:00; Stop 01/14/17 at 19:17; Status DC Warfarin Sodium (Coumadin) 4 mg 1X WARF ONCE PO Last administered on 16:35; Start 01/11/17 at 16:00; Stop 01/12/17 at 12:09; Status DC Pantoprazole Sodium (Protonix) 40 mg DAILYAC PO Last administered on 08:11; Start 01/12/17 at 10:30 Vitamin D (Vitamin D3) 50,000 unit WEEKLY PO Last administered on 01/12/17 10: 30; Start 01/12/17 at 10:30 Ferrous Sulfate (Feosol) 325 mg DAILYWBKFT PO Last administered on 01/16/17 08:11; Start 01/13/17 at 08:00 Warfarin Sodium (Coumadin - No Dose Today) 1 each 1X WARF ONCE MC ; Start 01/12 at 16:00; Stop 01/12/17 at 16:00; Status DC Warfarin Sodium (Coumadin Per Pharmacy) 1 each PRN DAILY PRN MC SEE COMMENTS Last administered on 01/13/17 14:02; Start 01/13/17 at 13:45; Stop 01/15/17 at 17:06; Status DC Warfarin Sodium (Coumadin) 4 mg DAILY16 PO Last administered on 01/14/17 17:43 ; Start 01/13/17 at 16:00; Stop 01/15/17 at 17:06; Status DC Divalproex Sodium (Depakote Er) 750 mg QHS PO Last administered on 01/16/17 19:33; Start 01/14/17 at 21:00 Warfarin Sodium (Coumadin) 3 mg 1X WARF ONCE PO Last administered on 16:53; Start 01/16/17 at 16:00; Stop 01/16/17 at 16:01; Status DC Warfarin Sodium (Coumadin Per Physician) 1 each PRN DAILY PRN MC SEE COMMENTS; Start 01/15/17 at 17:15 Active Scripts Active Reported Zoloft (Sertraline Hcl) 50 Mg Tablet 50 Mg PO DAILY Prosource Plus Liquid Packet (Amino Ac/Protein Hydr/Whey Pro) 30 Ml Liquid.pkt 30 Ml PO DAILY Dulcolax (Bisacodyl) 10 Mg Supp.rect 10 Mg RC PRN DAILY PRN Silvadene (Silver Sulfadiazine) 20 Gm Cream..g. 1 Sapphire TP BID NITROGLYCERIN SubLingual (Nitroglycerin) 0.4 Mg Tab.subl 0.4 Mg SL PRN Q5MIN PRN May repeat x3 doses Maalox Maximum Strength Susp (Mag Hydrox/Al Hydrox/Simeth) 355 Ml Oral.susp 10 Ml PO PRN Q2HR PRN Duoneb 0.5-3(2.5) Mg/3 Ml (Albuterol/Ipratropium) 3 Ml Ampul.neb 3 Ml NEB PRN TID PRN Milk Of Magnesia (Magnesium Hydroxide) 400 Mg/5 Ml Oral.susp 2,400 Mg PO PRN Q3DAYS PRN Tylenol (Acetaminophen) 325 Mg Tablet 650 Mg PO PRN Q4HRS PRN Coumadin (Warfarin Sodium) 5 Mg Tablet 5 Mg PO DAILY16 Multivitamins (Multivitamin) 1 Each Tablet 1 Tab PO DAILY Flomax (Tamsulosin Hcl) 0.4 Mg Cap.er.24h 0.4 Mg PO DAILY Methyldopa 250 Mg Tablet 500 Mg PO BID Hold for SBP <110 or pulse < 55 Mirtazapine 30 Mg Tablet 30 Mg PO QHS Finasteride 5 Mg Tablet 5 Mg PO DAILY Allopurinol 100 Mg Tablet 100 Mg PO DAILY Ascorbic Acid 500 Mg Tablet 500 Mg PO BID Colestipol Hcl 5 Gm Packet 5 Gm PO BID Risperidone 1 Mg Tablet 1 Mg PO BID Diagnosis: Problems: (1) Aggressive behavior (2) Bipolar affective, mixed, sev w/ psych (3) Anxiety disorder (4) Dementia, vascular, with delusions (5) Dementia, vascular, with depression (6) Mild cognitive disorder (7) Major depressive disorder, recurrent episode (8) Psychotic depression (9) Impulse control disorder DIANE KABA MD Jan 16, 2017 20:38
--- NOTE | 2017-01-17 01:13 | PN ---
DATE: 01/15/2017 PSYCHIATRIC PROGRESS NOTE This late entry date of service 01/15/2017 covers elements, not covered in my initial note of 01/15/2017. SUBJECTIVE: I met with the patient the afternoon of 01/15/2017. Per nursing staff, the patient has been gruff, somewhat abrasive, but not aggressive; cooperative with his ADLs. REVIEW OF SYSTEMS: Ambulation impaired, in wheelchair. No CV, , pulmonary, eye, ENT system symptoms on review. Reliability poor. MENTAL STATUS EXAM: Oriented to himself at times to situation. Speech moderate latency, often monosyllabic and responses. Insight, judgment, recent memory is impaired. Language function intact. Attention span short. Mood and affect showing some improvement. LABORATORY DATA: Reviewed. IMPRESSION: Major depressive disorder with possible psychotic features; major neurocognitive disorder, Alzheimer, vascular with depression. Rest unchanged. PLAN: Continue current psychotropics, possibility of discharge on hospice care. We will defer to Dr. Encarnacion. Review drug interactions. Risk/benefit ratio favors no further change. MAN Isaías KABA MD DR: LAURY/rosalva JOB#: [id number] / [id number]
[2017-01-17] MEDS: LEVOTHYROXINE 25 MCG TABLET. PO SCH (05:12)
[2017-01-17 05:57] VITALS: BP 191/77
[2017-01-17] MEDS: COLESTIPOL HCL 1 GM TABLET PO SCH ×3 (07:00→19:43)
[2017-01-17] MEDS: PANTOPRAZOLE 40 MG TABLET. PO SCH (07:31)
[2017-01-17 07:42] VITALS: BP 184/77
[2017-01-17] MEDS: FERROUS SULFATE 325 MG TABLET. PO SCH (08:00)
[2017-01-17] MEDS: ALLOPURINOL 100 MG TABLET. PO SCH (09:00)
[2017-01-17] MEDS: TAMSULOSIN 0.4 MG CAP.ER.24H. PO SCH (09:00)
[2017-01-17] MEDS: risperiDONE 1 MG TABLET. PO SCH ×2 (09:00→19:42)
[2017-01-17] MEDS: ASCORBIC ACID 500 MG TABLET PO SCH ×2 (09:00→19:42)
[2017-01-17] MEDS: MULTIVITAMIN with MINERAL TABLET. PO SCH (09:00)
[2017-01-17] MEDS: METHYLDOPA 250 MG TABLET PO SCH ×2 (09:00→19:43)
[2017-01-17] MEDS: SERTRALINE 50 MG TABLET. PO SCH (09:00)
[2017-01-17] MEDS: FINASTERIDE 5 MG TABLET PO SCH (09:00)
[2017-01-17 09:42] LABS: BASO # 0.1 x10^3/uL (0.0-0.2); BASO % 2 % (0-3); EOS # 0.4 x10^3/uL (0.0-0.7); EOS % 6 % (0-3); HEMATOCRIT 22.4 % (39.0-53.0); HEMOGLOBIN 7.5 g/dL (13.0-17.5); LYMPH % 16 % (24-48); MEAN CORPUSCULAR HEMOGLOBIN 31 pg (25-35); MEAN CORPUSCULAR HGB CONC 33 g/dL (31-37); MEAN CORPUSCULAR VOLUME 94 fL (79-100); MONO # 0.5 x10^3/uL (0.0-1.1); MONO % 7 % (0-9); NEUT # 4.6 x10^3uL (1.8-7.7); NEUT % 70 % (31-73); PLATELET COUNT 264 x10^3/uL (140-400); RED BLOOD COUNT 2.39 x10^6/uL (4.30-5.70); RED CELL DISTRIBUTION WIDTH 18.5 % (11.5-14.5); WHITE BLOOD COUNT 6.5 x10^3/uL (4.0-11.0)
[2017-01-17 10:00] LABS: ALBUMIN 2.6 g/dL (3.4-5.0); ALBUMIN/GLOBULIN RATIO 0.9 (1.0-1.7); ALK PHOS 60 U/L (46-116); ALT (SGPT) 13 U/L (16-63); ANION GAP 9 (6-14); AST (SGOT) 18 U/L (15-37); BLOOD UREA NITROGEN 52 mg/dL (8-26); BUN/CREATININE RATIO 24 (6-20); CALCIUM 8.4 mg/dL (8.5-10.1); CARBON DIOXIDE 21 mmol/L (21-32); CHLORIDE 111 mmol/L (98-107); CREATININE 2.2 mg/dL (0.7-1.3); GFR 28.5; GLUCOSE 126 mg/dL (70-99); POTASSIUM 4.8 mmol/L (3.5-5.1); SODIUM 141 mmol/L (136-145); TOTAL BILIRUBIN 0.4 mg/dL (0.2-1.0); TOTAL PROTEIN 5.4 g/dL (6.4-8.2)
[2017-01-17 10:01] LABS: VAL ACID 27 mcg/mL (50-100)
[2017-01-17 16:28] VITALS: BP 148/63
[2017-01-17] MEDS ORDERED: WARFARIN 3 MG TABLET. PO ONE (17:00)
[2017-01-17] MEDS: DIVALPROEX ER 250 MG TAB.ER.24H. PO SCH (19:42)
[2017-01-17] MEDS: MIRTAZAPINE 30 MG TABLET PO SCH (19:48)
--- NOTE | 2017-01-17 20:18 | PDOC ---
Exam Gonzales Demential Exam: Gonzales Note: Please also refer to the separate dictated note~for this date of service dictated separately.~Patient seen individually. Discussed the patient with Nursing staff reviewed the chart.~Reviewed interim history and current functioning. Reviewed vital signs,~Labs/ Radiology~and current medications noted below. Continue current treatment with the changes noted in the dictated addendum note Assessment: Vital Signs: Vital Signs Date Time Temp Pulse Resp B/P (MAP) Pulse Ox O2 Delivery O2 Flow Rate FiO2 01/17/17 19:43 76 148/63 01/17/17 16:28 97.1 20 99 01/15/17 16:02 Room Air I&O Intake and Output 01/18/17 07:00 Intake Total 840 ml Balance 840 ml Intake Oral 840 ml # Bowel Movements 2 Labs: Laboratory Tests Test 01/17/17 09:32 01/17/17 11:28 White Blood Count 6.5 x10^3/uL (4.0-11.0) Red Blood Count 2.39 x10^6/uL (4.30-5.70) L Hemoglobin 7.5 g/dL (13.0-17.5) L Hematocrit 22.4 % (39.0-53.0) L Mean Corpuscular Volume 94 fL (79-100) Mean Corpuscular Hemoglobin 31 pg (25-35) Mean Corpuscular Hemoglobin Concent 33 g/dL (31-37) Red Cell Distribution Width 18.5 % (11.5-14.5) H Platelet Count 264 x10^3/uL (140-400) Neutrophils (%) (Auto) 70 % (31-73) Lymphocytes (%) (Auto) 16 % (24-48) L Monocytes (%) (Auto) 7 % (0-9) Eosinophils (%) (Auto) 6 % (0-3) H Basophils (%) (Auto) 2 % (0-3) Neutrophils # (Auto) 4.6 x10^3uL (1.8-7.7) Lymphocytes # (Auto) 1.0 x10^3/uL (1.0-4.8) Monocytes # (Auto) 0.5 x10^3/uL (0.0-1.1) Eosinophils # (Auto) 0.4 x10^3/uL (0.0-0.7) Basophils # (Auto) 0.1 x10^3/uL (0.0-0.2) Sodium Level 141 mmol/L (136-145) Potassium Level 4.8 mmol/L (3.5-5.1) Chloride Level 111 mmol/L (98-107) H Carbon Dioxide Level 21 mmol/L (21-32) Anion Gap 9 (6-14) Blood Urea Nitrogen 52 mg/dL (8-26) H Creatinine 2.2 mg/dL (0.7-1.3) H Estimated GFR (Cockcroft-Gault) 28.5 BUN/Creatinine Ratio 24 (6-20) H Glucose Level 126 mg/dL (70-99) H Calcium Level 8.4 mg/dL (8.5-10.1) L Total Bilirubin 0.4 mg/dL (0.2-1.0) Aspartate Amino Transferase (AST) 18 U/L (15-37) Alanine Aminotransferase (ALT) 13 U/L (16-63) L Alkaline Phosphatase 60 U/L (46-116) Total Protein 5.4 g/dL (6.4-8.2) L Albumin 2.6 g/dL (3.4-5.0) L Albumin/Globulin Ratio 0.9 (1.0-1.7) L Valproic Acid Level 27 mcg/mL (50-100) L Valproic Acid Last Dose Date 01/16/17 Valproic Acid Last Dose Time 2100 Prothrombin Time 21.5 SEC (9.4-11.4) H Prothrombin Time INR 2.1 (0.9-1.1) H Current Medications: Meds: Current Medications Sodium Chloride 500 ml @ 0 mls/hr 1X ONCE IV Last administered on 01/06/17 09 :45; Start 01/06/17 at 09:30; Stop 01/06/17 at 09:55; Status DC Sodium Polystyrene Sulfonate (Kayexalate) 15 gm 1X ONCE PO Last administered on 01/06/17 10:40; Start 01/06/17 at 10:00; Stop 01/06/17 at 10:01; Status DC Influenza Virus Vaccine Quadrival (Fluarix Quad [id number] Syringe) 0.5 ml 1X ONCE VAX IM Last administered on 01/07/17 18:12; Start 01/07/17 at 09:00; Stop 01/07/17 at 09:01; Status DC Olanzapine (ZyPREXA ZYDIS) 2.5 mg PRN Q2HR PRN PO Agitation ; Start 01/06/17 at 12:30 Acetaminophen (Tylenol) 650 mg PRN Q4HRS PRN PO PAIN / TEMP; Start 01/06/17 at 12:45 Allopurinol (Zyloprim) 100 mg DAILY PO Last administered on 01/17/17 09:00; Start 01/07/17 at 09:00 Ascorbic Acid (Vitamin C) 500 mg BID PO Last administered on 01/17/17 19:42; Start 01/06/17 at 21:00 Bisacodyl (Dulcolax Supp) 10 mg PRN DAILY PRN RC CONSTIPATION; Start 01/06/17 at 12:45 Finasteride (Proscar) 5 mg DAILY PO Last administered on 01/17/17 09:00; Start 01/07/17 at 09:00 Albuterol/ Ipratropium (Duoneb) 3 ml PRN TID PRN NEB WHEEZING; Start 01/06/17 at 12:45 Al Hydroxide/Mg Hydroxide (Mylanta Plus Xs) 10 ml PRN Q2HR PRN PO INDIGESTION; Start 01/06/17 at 12:45 Magnesium Hydroxide (Milk Of Magnesia) 400 mg PRN QHS PRN PO CONSTIPATION; Start 01/06/17 at 12:45 Methyldopa (Aldomet) 500 mg BID PO Last administered on 01/17/17 19:43; Start 01/06/17 at 21:00 Nitroglycerin (Nitrostat) 0.4 mg PRN Q5MIN PRN SL CHEST PAIN; Start 01/06/17 at 12:45 Silver Sulfadiazine (Silvadene) 1 sapphire BID TP Last administered on 01/08/17 09: 51; Start 01/06/17 at 21:00; Stop 01/08/17 at 22:55; Status DC Tamsulosin HCl (Flomax) 0.4 mg DAILY PO Last administered on 01/17/17 09:00; Start 01/07/17 at 09:00 Warfarin Sodium (Coumadin) 5 mg DAILY16 PO ; Start 01/06/17 at 16:00; Stop 01/06 at 16:00; Status DC Non-Formulary Medication 30 ml DAILY PO ; Start 01/07/17 at 09:00; Stop at 09:00; Status DC Colestipol HCl (Colestid) 5 gm BID PO Last administered on 01/07/17 19:45; Start 01/06/17 at 21:00; Stop 01/08/17 at 08:58; Status DC Mirtazapine (Remeron) 30 mg QHS PO Last administered on 01/17/17 19:48; Start 01/06/17 at 21:00 Risperidone (RisperDAL) 1 mg BID PO Last administered on 01/17/17 19:42; Start 01/06/17 at 21:00 Sertraline HCl (Zoloft) 50 mg DAILY PO Last administered on 01/17/17 09:00; Start 01/07/17 at 09:00; Stop 01/17/17 at 18:54; Status DC Multivitamins/ Calcium (Thera-M Plus) 1 tab DAILY PO Last administered on 01/16 08:12; Start 01/07/17 at 09:00 Warfarin Sodium (Coumadin Per Pharmacy) 1 each PRN DAILY PRN MC SEE COMMENTS Last administered on 01/11/17 14:41; Start 01/07/17 at 11:00; Stop 01/12/17 at 12:09; Status DC Warfarin Sodium (Coumadin - No Dose Today) 1 each 1X WARF ONCE MC Last administered on 01/07/17 16:00; Start 01/07/17 at 16:00; Stop 01/07/17 at 16:01 ; Status DC Levothyroxine Sodium (Synthroid) 25 mcg DAILY07 PO Last administered on 05:12; Start 01/08/17 at 07:00 Divalproex Sodium (Depakote Er) 250 mg QHS PO Last administered on 01/10/17 20 :01; Start 01/07/17 at 21:00; Stop 01/11/17 at 10:17; Status DC Colestipol HCl (Colestid) 5 gm BID@0700,2100 PO Last administered on 05:49; Start 01/08/17 at 09:00 Warfarin Sodium (Coumadin) 5 mg 1X WARF ONCE PO Last administered on 17:31; Start 01/08/17 at 16:00; Stop 01/08/17 at 16:01; Status DC Warfarin Sodium (Coumadin) 5 mg 1X WARF ONCE PO Last administered on 17:09; Start 01/09/17 at 16:00; Stop 01/09/17 at 16:01; Status DC Warfarin Sodium (Coumadin) 4 mg 1X WARF ONCE PO Last administered on 17:57; Start 01/10/17 at 16:00; Stop 01/10/17 at 16:01; Status DC Divalproex Sodium (Depakote Er) 500 mg QHS PO Last administered on 01/13/17 20 :08; Start 01/11/17 at 21:00; Stop 01/14/17 at 19:17; Status DC Warfarin Sodium (Coumadin) 4 mg 1X WARF ONCE PO Last administered on 16:35; Start 01/11/17 at 16:00; Stop 01/12/17 at 12:09; Status DC Pantoprazole Sodium (Protonix) 40 mg DAILYAC PO Last administered on 07:31; Start 01/12/17 at 10:30 Vitamin D (Vitamin D3) 50,000 unit WEEKLY PO Last administered on 01/12/17 10: 30; Start 01/12/17 at 10:30 Ferrous Sulfate (Feosol) 325 mg DAILYWBKFT PO Last administered on 01/16/17 08:11; Start 01/13/17 at 08:00 Warfarin Sodium (Coumadin - No Dose Today) 1 each 1X WARF ONCE MC ; Start 01/12 at 16:00; Stop 01/12/17 at 16:00; Status DC Warfarin Sodium (Coumadin Per Pharmacy) 1 each PRN DAILY PRN MC SEE COMMENTS Last administered on 01/13/17 14:02; Start 01/13/17 at 13:45; Stop 01/15/17 at 17:06; Status DC Warfarin Sodium (Coumadin) 4 mg DAILY16 PO Last administered on 01/14/17 17:43 ; Start 01/13/17 at 16:00; Stop 01/15/17 at 17:06; Status DC Divalproex Sodium (Depakote Er) 750 mg QHS PO Last administered on 01/17/17 19:42; Start 01/14/17 at 21:00 Warfarin Sodium (Coumadin) 3 mg 1X WARF ONCE PO Last administered on 16:53; Start 01/16/17 at 16:00; Stop 01/16/17 at 16:01; Status DC Warfarin Sodium (Coumadin Per Physician) 1 each PRN DAILY PRN MC SEE COMMENTS; Start 01/15/17 at 17:15 Warfarin Sodium (Coumadin) 3 mg 1X ONCE PO Last administered on 01/17/17 17: 28; Start 01/17/17 at 17:00; Stop 01/17/17 at 17:01; Status DC Warfarin Sodium (Coumadin) 3 mg 1X ONCE PO ; Start 01/18/17 at 16:00; Stop at 16:01 Sertraline HCl (Zoloft) 75 mg DAILY PO ; Start 01/18/17 at 09:00 Active Scripts Active Reported Zoloft (Sertraline Hcl) 50 Mg Tablet 50 Mg PO DAILY Prosource Plus Liquid Packet (Amino Ac/Protein Hydr/Whey Pro) 30 Ml Liquid.pkt 30 Ml PO DAILY Dulcolax (Bisacodyl) 10 Mg Supp.rect 10 Mg RC PRN DAILY PRN Silvadene (Silver Sulfadiazine) 20 Gm Cream..g. 1 Sapphire TP BID NITROGLYCERIN SubLingual (Nitroglycerin) 0.4 Mg Tab.subl 0.4 Mg SL PRN Q5MIN PRN May repeat x3 doses Maalox Maximum Strength Susp (Mag Hydrox/Al Hydrox/Simeth) 355 Ml Oral.susp 10 Ml PO PRN Q2HR PRN Duoneb 0.5-3(2.5) Mg/3 Ml (Albuterol/Ipratropium) 3 Ml Ampul.neb 3 Ml NEB PRN TID PRN Milk Of Magnesia (Magnesium Hydroxide) 400 Mg/5 Ml Oral.susp 2,400 Mg PO PRN Q3DAYS PRN Tylenol (Acetaminophen) 325 Mg Tablet 650 Mg PO PRN Q4HRS PRN Coumadin (Warfarin Sodium) 5 Mg Tablet 5 Mg PO DAILY16 Multivitamins (Multivitamin) 1 Each Tablet 1 Tab PO DAILY Flomax (Tamsulosin Hcl) 0.4 Mg Cap.er.24h 0.4 Mg PO DAILY Methyldopa 250 Mg Tablet 500 Mg PO BID Hold for SBP <110 or pulse < 55 Mirtazapine 30 Mg Tablet 30 Mg PO QHS Finasteride 5 Mg Tablet 5 Mg PO DAILY Allopurinol 100 Mg Tablet 100 Mg PO DAILY Ascorbic Acid 500 Mg Tablet 500 Mg PO BID Colestipol Hcl 5 Gm Packet 5 Gm PO BID Risperidone 1 Mg Tablet 1 Mg PO BID Diagnosis: Problems: (1) Aggressive behavior (2) Chronic anemia (3) Bipolar affective, mixed, sev w/ psych (4) Anxiety disorder (5) Dementia, vascular, with delusions (6) Dementia, vascular, with depression (7) Mild cognitive disorder (8) Major depressive disorder, recurrent episode (9) Psychotic depression (10) Impulse control disorder DIANE KABA MD Jan 17, 2017 20:18
--- NOTE | 2017-01-18 01:34 | PN ---
DATE: 01/16/2017 PSYCHIATRIC PROGRESS NOTE This is a late entry for 01/16/2017, covers elements not covered in my initial note of 01/16/2017. SUBJECTIVE: I met with the patient the evening of 01/16/2017. The patient slept 7-1/2 hours previous evening, little more interactive and "much nicer" per nursing staff. This is an improvement. Appetite is little better as well. REVIEW OF SYSTEMS: Ambulation impaired, in a wheelchair. No CV, , pulmonary, eye, ENT system symptoms on review. Reliability somewhat poor. MENTAL STATUS EXAM: Oriented to himself and situation. Speech moderate latency, often responses monosyllabic, little more interactive, abstraction fair, computation impaired, language function intact. Mood and affect still somewhat depressed, but showing improvement. LABORATORY DATA: Reviewed. IMPRESSION: Unchanged from initial note. PLAN: Continue current psychotropics and we may need to increase Zoloft in due course as an antidepressant. Continue Risperdal, Remeron, Depakote along with Zyprexa p.r.n. Reviewed drug interactions. Risk/benefit ratio favors no further change. DIANE KABA MD DR: LAURY/rosalva JOB#: [id number] / [id number]
[2017-01-18 05:59] VITALS: BP 149/62
[2017-01-18] MEDS: LEVOTHYROXINE 25 MCG TABLET. PO SCH (06:25)
[2017-01-18] MEDS: COLESTIPOL HCL 1 GM TABLET PO SCH ×3 (07:07→20:10)
[2017-01-18] MEDS: ALLOPURINOL 100 MG TABLET. PO SCH (10:38)
[2017-01-18] MEDS: ASCORBIC ACID 500 MG TABLET PO SCH ×2 (10:38→19:40)
[2017-01-18] MEDS: FINASTERIDE 5 MG TABLET PO SCH (10:38)
[2017-01-18] MEDS: TAMSULOSIN 0.4 MG CAP.ER.24H. PO SCH (10:38)
[2017-01-18] MEDS: MULTIVITAMIN with MINERAL TABLET. PO SCH (10:38)
[2017-01-18] MEDS: PANTOPRAZOLE 40 MG TABLET. PO SCH (10:38)
[2017-01-18] MEDS: risperiDONE 1 MG TABLET. PO SCH ×2 (10:38→19:40)
[2017-01-18] MEDS: METHYLDOPA 250 MG TABLET PO SCH ×2 (10:39→19:46)
[2017-01-18] MEDS: FERROUS SULFATE 325 MG TABLET. PO SCH (10:39)
[2017-01-18] MEDS: SERTRALINE 50 MG TABLET. PO SCH (10:51)
[2017-01-18] MEDS ORDERED: WARFARIN 3 MG TABLET. PO ONE (16:00)
[2017-01-18 16:23] VITALS: BP 122/68
[2017-01-18] MEDS: MIRTAZAPINE 30 MG TABLET PO SCH (19:40)
--- NOTE | 2017-01-18 20:28 | PDOC ---
Exam Gonzales Demential Exam: Gonzales Note: Please also refer to the separate dictated note~for this date of service dictated separately.~Patient seen individually. Discussed the patient with Nursing staff reviewed the chart.~Reviewed interim history and current functioning. Reviewed vital signs,~Labs/ Radiology~and current medications noted below. Continue current treatment with the changes noted in the dictated addendum note Assessment: Vital Signs: Vital Signs Date Time Temp Pulse Resp B/P (MAP) Pulse Ox O2 Delivery O2 Flow Rate FiO2 01/18/17 19:46 54 122/68 01/18/17 16:23 97.9 24 95 01/15/17 16:02 Room Air I&O Intake and Output 01/19/17 07:00 Intake Total 240 ml Balance 240 ml Intake Oral 240 ml # Voids 1 # Bowel Movements 1 Labs: Laboratory Tests Test 01/18/17 06:12 Prothrombin Time 20.1 SEC (9.4-11.4) H Prothrombin Time INR 2.0 (0.9-1.1) H Current Medications: Meds: Current Medications Sodium Chloride 500 ml @ 0 mls/hr 1X ONCE IV Last administered on 01/06/17 09 :45; Start 01/06/17 at 09:30; Stop 01/06/17 at 09:55; Status DC Sodium Polystyrene Sulfonate (Kayexalate) 15 gm 1X ONCE PO Last administered on 01/06/17 10:40; Start 01/06/17 at 10:00; Stop 01/06/17 at 10:01; Status DC Influenza Virus Vaccine Quadrival (Fluarix Quad [id number] Syringe) 0.5 ml 1X ONCE VAX IM Last administered on 01/07/17 18:12; Start 01/07/17 at 09:00; Stop 01/07/17 at 09:01; Status DC Olanzapine (ZyPREXA ZYDIS) 2.5 mg PRN Q2HR PRN PO Agitation ; Start 01/06/17 at 12:30 Acetaminophen (Tylenol) 650 mg PRN Q4HRS PRN PO PAIN / TEMP; Start 01/06/17 at 12:45 Allopurinol (Zyloprim) 100 mg DAILY PO Last administered on 01/18/17 10:38; Start 01/07/17 at 09:00 Ascorbic Acid (Vitamin C) 500 mg BID PO Last administered on 01/18/17 19:40; Start 01/06/17 at 21:00 Bisacodyl (Dulcolax Supp) 10 mg PRN DAILY PRN RC CONSTIPATION; Start 01/06/17 at 12:45 Finasteride (Proscar) 5 mg DAILY PO Last administered on 01/18/17 10:38; Start 01/07/17 at 09:00 Albuterol/ Ipratropium (Duoneb) 3 ml PRN TID PRN NEB WHEEZING; Start 01/06/17 at 12:45 Al Hydroxide/Mg Hydroxide (Mylanta Plus Xs) 10 ml PRN Q2HR PRN PO INDIGESTION; Start 01/06/17 at 12:45 Magnesium Hydroxide (Milk Of Magnesia) 400 mg PRN QHS PRN PO CONSTIPATION; Start 01/06/17 at 12:45 Methyldopa (Aldomet) 500 mg BID PO Last administered on 01/18/17 19:46; Start 01/06/17 at 21:00 Nitroglycerin (Nitrostat) 0.4 mg PRN Q5MIN PRN SL CHEST PAIN; Start 01/06/17 at 12:45 Silver Sulfadiazine (Silvadene) 1 sapphire BID TP Last administered on 01/08/17 09: 51; Start 01/06/17 at 21:00; Stop 01/08/17 at 22:55; Status DC Tamsulosin HCl (Flomax) 0.4 mg DAILY PO Last administered on 01/18/17 10:38; Start 01/07/17 at 09:00 Warfarin Sodium (Coumadin) 5 mg DAILY16 PO ; Start 01/06/17 at 16:00; Stop 01/06 at 16:00; Status DC Non-Formulary Medication 30 ml DAILY PO ; Start 01/07/17 at 09:00; Stop at 09:00; Status DC Colestipol HCl (Colestid) 5 gm BID PO Last administered on 01/07/17 19:45; Start 01/06/17 at 21:00; Stop 01/08/17 at 08:58; Status DC Mirtazapine (Remeron) 30 mg QHS PO Last administered on 01/18/17 19:40; Start 01/06/17 at 21:00 Risperidone (RisperDAL) 1 mg BID PO Last administered on 01/18/17 19:40; Start 01/06/17 at 21:00 Sertraline HCl (Zoloft) 50 mg DAILY PO Last administered on 01/17/17 09:00; Start 01/07/17 at 09:00; Stop 01/17/17 at 18:54; Status DC Multivitamins/ Calcium (Thera-M Plus) 1 tab DAILY PO Last administered on 01/18 10:38; Start 01/07/17 at 09:00 Warfarin Sodium (Coumadin Per Pharmacy) 1 each PRN DAILY PRN MC SEE COMMENTS Last administered on 01/11/17 14:41; Start 01/07/17 at 11:00; Stop 01/12/17 at 12:09; Status DC Warfarin Sodium (Coumadin - No Dose Today) 1 each 1X WARF ONCE MC Last administered on 01/07/17 16:00; Start 01/07/17 at 16:00; Stop 01/07/17 at 16:01 ; Status DC Levothyroxine Sodium (Synthroid) 25 mcg DAILY07 PO Last administered on 06:25; Start 01/08/17 at 07:00 Divalproex Sodium (Depakote Er) 250 mg QHS PO Last administered on 01/10/17 20 :01; Start 01/07/17 at 21:00; Stop 01/11/17 at 10:17; Status DC Colestipol HCl (Colestid) 5 gm BID@0700,2100 PO Last administered on 05:49; Start 01/08/17 at 09:00 Warfarin Sodium (Coumadin) 5 mg 1X WARF ONCE PO Last administered on 17:31; Start 01/08/17 at 16:00; Stop 01/08/17 at 16:01; Status DC Warfarin Sodium (Coumadin) 5 mg 1X WARF ONCE PO Last administered on 17:09; Start 01/09/17 at 16:00; Stop 01/09/17 at 16:01; Status DC Warfarin Sodium (Coumadin) 4 mg 1X WARF ONCE PO Last administered on 17:57; Start 01/10/17 at 16:00; Stop 01/10/17 at 16:01; Status DC Divalproex Sodium (Depakote Er) 500 mg QHS PO Last administered on 01/13/17 20 :08; Start 01/11/17 at 21:00; Stop 01/14/17 at 19:17; Status DC Warfarin Sodium (Coumadin) 4 mg 1X WARF ONCE PO Last administered on 16:35; Start 01/11/17 at 16:00; Stop 01/12/17 at 12:09; Status DC Pantoprazole Sodium (Protonix) 40 mg DAILYAC PO Last administered on 10:38; Start 01/12/17 at 10:30 Vitamin D (Vitamin D3) 50,000 unit WEEKLY PO Last administered on 01/12/17 10: 30; Start 01/12/17 at 10:30 Ferrous Sulfate (Feosol) 325 mg DAILYWBKFT PO Last administered on 01/18/17 10:39; Start 01/13/17 at 08:00 Warfarin Sodium (Coumadin - No Dose Today) 1 each 1X WARF ONCE MC ; Start 01/12 at 16:00; Stop 01/12/17 at 16:00; Status DC Warfarin Sodium (Coumadin Per Pharmacy) 1 each PRN DAILY PRN MC SEE COMMENTS Last administered on 01/13/17 14:02; Start 01/13/17 at 13:45; Stop 01/15/17 at 17:06; Status DC Warfarin Sodium (Coumadin) 4 mg DAILY16 PO Last administered on 01/14/17 17:43 ; Start 01/13/17 at 16:00; Stop 01/15/17 at 17:06; Status DC Divalproex Sodium (Depakote Er) 750 mg QHS PO Last administered on 01/17/17 19:42; Start 01/14/17 at 21:00; Stop 01/18/17 at 10:53; Status DC Warfarin Sodium (Coumadin) 3 mg 1X WARF ONCE PO Last administered on 16:53; Start 01/16/17 at 16:00; Stop 01/16/17 at 16:01; Status DC Warfarin Sodium (Coumadin Per Physician) 1 each PRN DAILY PRN MC SEE COMMENTS; Start 01/15/17 at 17:15 Warfarin Sodium (Coumadin) 3 mg 1X ONCE PO Last administered on 01/17/17 17: 28; Start 01/17/17 at 17:00; Stop 01/17/17 at 17:01; Status DC Warfarin Sodium (Coumadin) 3 mg 1X ONCE PO Last administered on 01/18/17 16: 56; Start 01/18/17 at 16:00; Stop 01/18/17 at 16:01; Status DC Sertraline HCl (Zoloft) 75 mg DAILY PO Last administered on 01/18/17 10:51; Start 01/18/17 at 09:00 Divalproex Sodium (Depakote Er) 1,000 mg QHS PO ; Start 01/19/17 at 21:00 Active Scripts Active Reported Zoloft (Sertraline Hcl) 50 Mg Tablet 50 Mg PO DAILY Prosource Plus Liquid Packet (Amino Ac/Protein Hydr/Whey Pro) 30 Ml Liquid.pkt 30 Ml PO DAILY Dulcolax (Bisacodyl) 10 Mg Supp.rect 10 Mg RC PRN DAILY PRN Silvadene (Silver Sulfadiazine) 20 Gm Cream..g. 1 Sapphire TP BID NITROGLYCERIN SubLingual (Nitroglycerin) 0.4 Mg Tab.subl 0.4 Mg SL PRN Q5MIN PRN May repeat x3 doses Maalox Maximum Strength Susp (Mag Hydrox/Al Hydrox/Simeth) 355 Ml Oral.susp 10 Ml PO PRN Q2HR PRN Duoneb 0.5-3(2.5) Mg/3 Ml (Albuterol/Ipratropium) 3 Ml Ampul.neb 3 Ml NEB PRN TID PRN Milk Of Magnesia (Magnesium Hydroxide) 400 Mg/5 Ml Oral.susp 2,400 Mg PO PRN Q3DAYS PRN Tylenol (Acetaminophen) 325 Mg Tablet 650 Mg PO PRN Q4HRS PRN Coumadin (Warfarin Sodium) 5 Mg Tablet 5 Mg PO DAILY16 Multivitamins (Multivitamin) 1 Each Tablet 1 Tab PO DAILY Flomax (Tamsulosin Hcl) 0.4 Mg Cap.er.24h 0.4 Mg PO DAILY Methyldopa 250 Mg Tablet 500 Mg PO BID Hold for SBP <110 or pulse < 55 Mirtazapine 30 Mg Tablet 30 Mg PO QHS Finasteride 5 Mg Tablet 5 Mg PO DAILY Allopurinol 100 Mg Tablet 100 Mg PO DAILY Ascorbic Acid 500 Mg Tablet 500 Mg PO BID Colestipol Hcl 5 Gm Packet 5 Gm PO BID Risperidone 1 Mg Tablet 1 Mg PO BID Diagnosis: Problems: (1) Aggressive behavior (2) Bipolar affective, mixed, sev w/ psych (3) Dementia, vascular, with delusions (4) Anxiety disorder (5) Dementia, vascular, with depression (6) Mild cognitive disorder (7) Major depressive disorder, recurrent episode (8) Psychotic depression (9) Impulse control disorder DIANE KABA MD Jan 18, 2017 20:28
--- NOTE | 2017-01-19 03:15 | PN ---
DATE: 01/17/2017 This late entry 01/17/2017, covers elements not covered in my initial note of 01/17/2017. Met with the patient evening of 01/17/2017. The patient has been irritable, demanding, labile in his mood, but some of this appears to be part of his personality. REVIEW OF SYSTEMS: Ambulation impaired, in wheelchair. No CV, , pulmonary, eye system symptoms on review. MENTAL STATUS EXAM: Oriented to himself and situation. Speech has some latency, often responses monosyllabic, coherent. Abstraction fair, computation impaired, language function intact, attention span short. Mood and affect is withdrawn, a little irritable, labile at times. LABORATORY DATA: Reviewed. IMPRESSION: Unchanged from initial note. PLAN: Continue current psychotropics. Increase Zoloft to 75 mg a day. Reviewed drug interactions. Risk/benefit ratio favors no further change. MAN Isaías KABA MD DR: LAURY/rosalva JOB#: [id number] / [id number]
[2017-01-19 06:11] VITALS: BP 159/66
[2017-01-19] MEDS: COLESTIPOL HCL 1 GM TABLET PO SCH ×3 (06:13→21:00)
[2017-01-19] MEDS: LEVOTHYROXINE 25 MCG TABLET. PO SCH (06:13)
[2017-01-19] MEDS: TAMSULOSIN 0.4 MG CAP.ER.24H. PO SCH (09:36)
[2017-01-19] MEDS: PANTOPRAZOLE 40 MG TABLET. PO SCH (09:36)
[2017-01-19] MEDS: MULTIVITAMIN with MINERAL TABLET. PO SCH (09:36)
[2017-01-19] MEDS: FINASTERIDE 5 MG TABLET PO SCH (09:36)
[2017-01-19] MEDS: SERTRALINE 50 MG TABLET. PO SCH (09:37)
[2017-01-19] MEDS: FERROUS SULFATE 325 MG TABLET. PO SCH (09:37)
[2017-01-19] MEDS: risperiDONE 1 MG TABLET. PO SCH ×2 (09:37→19:25)
[2017-01-19] MEDS: ALLOPURINOL 100 MG TABLET. PO SCH (09:37)
[2017-01-19] MEDS: ASCORBIC ACID 500 MG TABLET PO SCH ×2 (09:37→19:25)
[2017-01-19] MEDS: CHOLECALCIFEROL (VITAMIN D3) 50,000 UNIT CAPSULE PO SCH (09:41)
[2017-01-19] MEDS: METHYLDOPA 250 MG TABLET PO SCH ×2 (09:41→19:25)
[2017-01-19] MEDS ORDERED: WARFARIN 3 MG TABLET. PO ONE (16:00)
[2017-01-19 16:28] VITALS: BP 154/71
[2017-01-19 16:44] VITALS: BP 154/71
[2017-01-19] MEDS: MIRTAZAPINE 30 MG TABLET PO SCH (19:28)
[2017-01-19] MEDS: DIVALPROEX ER 500 MG TAB.ER.24H PO SCH (20:00)
--- NOTE | 2017-01-19 20:35 | PDOC ---
Exam Gonzales Demential Exam: Gonzales Note: Please also refer to the separate dictated note~for this date of service dictated separately.~Patient seen individually. Discussed the patient with Nursing staff reviewed the chart.~Reviewed interim history and current functioning. Reviewed vital signs,~Labs/ Radiology~and current medications noted below. Continue current treatment with the changes noted in the dictated addendum note Assessment: Vital Signs: Vital Signs Date Time Temp Pulse Resp B/P (MAP) Pulse Ox O2 Delivery O2 Flow Rate FiO2 01/19/17 19:25 70 154/71 01/19/17 16:44 97.7 18 98 01/15/17 16:02 Room Air I&O Intake and Output 01/20/17 07:00 Intake Total 840 ml Balance 840 ml Intake Oral 840 ml # Voids 2 # Bowel Movements 1 Labs: Laboratory Tests Test 01/19/17 08:59 Prothrombin Time 21.5 SEC (9.4-11.4) H Prothrombin Time INR 2.1 (0.9-1.1) H Current Medications: Meds: Current Medications Sodium Chloride 500 ml @ 0 mls/hr 1X ONCE IV Last administered on 01/06/17 09 :45; Start 01/06/17 at 09:30; Stop 01/06/17 at 09:55; Status DC Sodium Polystyrene Sulfonate (Kayexalate) 15 gm 1X ONCE PO Last administered on 01/06/17 10:40; Start 01/06/17 at 10:00; Stop 01/06/17 at 10:01; Status DC Influenza Virus Vaccine Quadrival (Fluarix Quad 9969-5069 Syringe) 0.5 ml 1X ONCE VAX IM Last administered on 01/07/17 18:12; Start 01/07/17 at 09:00; Stop 01/07/17 at 09:01; Status DC Olanzapine (ZyPREXA ZYDIS) 2.5 mg PRN Q2HR PRN PO Agitation ; Start 01/06/17 at 12:30 Acetaminophen (Tylenol) 650 mg PRN Q4HRS PRN PO PAIN / TEMP; Start 01/06/17 at 12:45 Allopurinol (Zyloprim) 100 mg DAILY PO Last administered on 01/19/17 09:37; Start 01/07/17 at 09:00 Ascorbic Acid (Vitamin C) 500 mg BID PO Last administered on 01/19/17 19:25; Start 01/06/17 at 21:00 Bisacodyl (Dulcolax Supp) 10 mg PRN DAILY PRN RC CONSTIPATION; Start 01/06/17 at 12:45 Finasteride (Proscar) 5 mg DAILY PO Last administered on 01/19/17 09:36; Start 01/07/17 at 09:00 Albuterol/ Ipratropium (Duoneb) 3 ml PRN TID PRN NEB WHEEZING; Start 01/06/17 at 12:45 Al Hydroxide/Mg Hydroxide (Mylanta Plus Xs) 10 ml PRN Q2HR PRN PO INDIGESTION; Start 01/06/17 at 12:45 Magnesium Hydroxide (Milk Of Magnesia) 400 mg PRN QHS PRN PO CONSTIPATION; Start 01/06/17 at 12:45 Methyldopa (Aldomet) 500 mg BID PO Last administered on 01/19/17 19:25; Start 01/06/17 at 21:00 Nitroglycerin (Nitrostat) 0.4 mg PRN Q5MIN PRN SL CHEST PAIN; Start 01/06/17 at 12:45 Silver Sulfadiazine (Silvadene) 1 sapphire BID TP Last administered on 01/08/17 09: 51; Start 01/06/17 at 21:00; Stop 01/08/17 at 22:55; Status DC Tamsulosin HCl (Flomax) 0.4 mg DAILY PO Last administered on 01/19/17 09:36; Start 01/07/17 at 09:00 Warfarin Sodium (Coumadin) 5 mg DAILY16 PO ; Start 01/06/17 at 16:00; Stop 01/06 at 16:00; Status DC Non-Formulary Medication 30 ml DAILY PO ; Start 01/07/17 at 09:00; Stop at 09:00; Status DC Colestipol HCl (Colestid) 5 gm BID PO Last administered on 01/07/17 19:45; Start 01/06/17 at 21:00; Stop 01/08/17 at 08:58; Status DC Mirtazapine (Remeron) 30 mg QHS PO Last administered on 01/19/17 19:28; Start 01/06/17 at 21:00 Risperidone (RisperDAL) 1 mg BID PO Last administered on 01/19/17 19:25; Start 01/06/17 at 21:00 Sertraline HCl (Zoloft) 50 mg DAILY PO Last administered on 01/17/17 09:00; Start 01/07/17 at 09:00; Stop 01/17/17 at 18:54; Status DC Multivitamins/ Calcium (Thera-M Plus) 1 tab DAILY PO Last administered on 01/19 09:36; Start 01/07/17 at 09:00 Warfarin Sodium (Coumadin Per Pharmacy) 1 each PRN DAILY PRN MC SEE COMMENTS Last administered on 01/11/17 14:41; Start 01/07/17 at 11:00; Stop 01/12/17 at 12:09; Status DC Warfarin Sodium (Coumadin - No Dose Today) 1 each 1X WARF ONCE MC Last administered on 01/07/17 16:00; Start 01/07/17 at 16:00; Stop 01/07/17 at 16:01 ; Status DC Levothyroxine Sodium (Synthroid) 25 mcg DAILY07 PO Last administered on 06:13; Start 01/08/17 at 07:00 Divalproex Sodium (Depakote Er) 250 mg QHS PO Last administered on 01/10/17 20 :01; Start 01/07/17 at 21:00; Stop 01/11/17 at 10:17; Status DC Colestipol HCl (Colestid) 5 gm BID@0700,2100 PO Last administered on 19:24; Start 01/08/17 at 09:00 Warfarin Sodium (Coumadin) 5 mg 1X WARF ONCE PO Last administered on 17:31; Start 01/08/17 at 16:00; Stop 01/08/17 at 16:01; Status DC Warfarin Sodium (Coumadin) 5 mg 1X WARF ONCE PO Last administered on 17:09; Start 01/09/17 at 16:00; Stop 01/09/17 at 16:01; Status DC Warfarin Sodium (Coumadin) 4 mg 1X WARF ONCE PO Last administered on 17:57; Start 01/10/17 at 16:00; Stop 01/10/17 at 16:01; Status DC Divalproex Sodium (Depakote Er) 500 mg QHS PO Last administered on 01/13/17 20 :08; Start 01/11/17 at 21:00; Stop 01/14/17 at 19:17; Status DC Warfarin Sodium (Coumadin) 4 mg 1X WARF ONCE PO Last administered on 16:35; Start 01/11/17 at 16:00; Stop 01/12/17 at 12:09; Status DC Pantoprazole Sodium (Protonix) 40 mg DAILYAC PO Last administered on 09:36; Start 01/12/17 at 10:30 Vitamin D (Vitamin D3) 50,000 unit WEEKLY PO Last administered on 01/19/17 09 :41; Start 01/12/17 at 10:30 Ferrous Sulfate (Feosol) 325 mg DAILYWBKFT PO Last administered on 01/19/17 09:37; Start 01/13/17 at 08:00 Warfarin Sodium (Coumadin - No Dose Today) 1 each 1X WARF ONCE MC ; Start 01/12 at 16:00; Stop 01/12/17 at 16:00; Status DC Warfarin Sodium (Coumadin Per Pharmacy) 1 each PRN DAILY PRN MC SEE COMMENTS Last administered on 01/13/17 14:02; Start 01/13/17 at 13:45; Stop 01/15/17 at 17:06; Status DC Warfarin Sodium (Coumadin) 4 mg DAILY16 PO Last administered on 01/14/17 17:43 ; Start 01/13/17 at 16:00; Stop 01/15/17 at 17:06; Status DC Divalproex Sodium (Depakote Er) 750 mg QHS PO Last administered on 01/17/17 19:42; Start 01/14/17 at 21:00; Stop 01/18/17 at 10:53; Status DC Warfarin Sodium (Coumadin) 3 mg 1X WARF ONCE PO Last administered on 16:53; Start 01/16/17 at 16:00; Stop 01/16/17 at 16:01; Status DC Warfarin Sodium (Coumadin Per Physician) 1 each PRN DAILY PRN MC SEE COMMENTS; Start 01/15/17 at 17:15 Warfarin Sodium (Coumadin) 3 mg 1X ONCE PO Last administered on 01/17/17 17: 28; Start 01/17/17 at 17:00; Stop 01/17/17 at 17:01; Status DC Warfarin Sodium (Coumadin) 3 mg 1X ONCE PO Last administered on 01/18/17 16: 56; Start 01/18/17 at 16:00; Stop 01/18/17 at 16:01; Status DC Sertraline HCl (Zoloft) 75 mg DAILY PO Last administered on 01/19/17 09:37; Start 01/18/17 at 09:00 Divalproex Sodium (Depakote Er) 1,000 mg QHS PO Last administered on 20:00; Start 01/19/17 at 21:00 Warfarin Sodium (Coumadin) 3 mg 1X WARF ONCE PO Last administered on 17:10; Start 01/19/17 at 16:00; Stop 01/19/17 at 16:01; Status DC Active Scripts Active Reported Zoloft (Sertraline Hcl) 50 Mg Tablet 50 Mg PO DAILY Prosource Plus Liquid Packet (Amino Ac/Protein Hydr/Whey Pro) 30 Ml Liquid.pkt 30 Ml PO DAILY Dulcolax (Bisacodyl) 10 Mg Supp.rect 10 Mg RC PRN DAILY PRN Silvadene (Silver Sulfadiazine) 20 Gm Cream..g. 1 Sapphire TP BID NITROGLYCERIN SubLingual (Nitroglycerin) 0.4 Mg Tab.subl 0.4 Mg SL PRN Q5MIN PRN May repeat x3 doses Maalox Maximum Strength Susp (Mag Hydrox/Al Hydrox/Simeth) 355 Ml Oral.susp 10 Ml PO PRN Q2HR PRN Duoneb 0.5-3(2.5) Mg/3 Ml (Albuterol/Ipratropium) 3 Ml Ampul.neb 3 Ml NEB PRN TID PRN Milk Of Magnesia (Magnesium Hydroxide) 400 Mg/5 Ml Oral.susp 2,400 Mg PO PRN Q3DAYS PRN Tylenol (Acetaminophen) 325 Mg Tablet 650 Mg PO PRN Q4HRS PRN Coumadin (Warfarin Sodium) 5 Mg Tablet 5 Mg PO DAILY16 Multivitamins (Multivitamin) 1 Each Tablet 1 Tab PO DAILY Flomax (Tamsulosin Hcl) 0.4 Mg Cap.er.24h 0.4 Mg PO DAILY Methyldopa 250 Mg Tablet 500 Mg PO BID Hold for SBP <110 or pulse < 55 Mirtazapine 30 Mg Tablet 30 Mg PO QHS Finasteride 5 Mg Tablet 5 Mg PO DAILY Allopurinol 100 Mg Tablet 100 Mg PO DAILY Ascorbic Acid 500 Mg Tablet 500 Mg PO BID Colestipol Hcl 5 Gm Packet 5 Gm PO BID Risperidone 1 Mg Tablet 1 Mg PO BID Diagnosis: Problems: (1) Aggressive behavior (2) Bipolar affective, mixed, sev w/ psych (3) Anxiety disorder (4) Dementia, vascular, with delusions (5) Dementia, vascular, with depression (6) Mild cognitive disorder (7) Major depressive disorder, recurrent episode (8) Psychotic depression (9) Impulse control disorder DIANE KABA MD Jan 19, 2017 20:35
[2017-01-20] MEDS: LEVOTHYROXINE 25 MCG TABLET. PO SCH (05:47)
[2017-01-20] MEDS: COLESTIPOL HCL 1 GM TABLET PO SCH ×2 (05:47→19:57)
[2017-01-20 06:13] VITALS: BP 151/61
[2017-01-20] MEDS: PANTOPRAZOLE 40 MG TABLET. PO SCH (07:30)
[2017-01-20] MEDS: FERROUS SULFATE 325 MG TABLET. PO SCH (08:00)
[2017-01-20] MEDS: METHYLDOPA 250 MG TABLET PO SCH ×2 (09:00→19:58)
[2017-01-20] MEDS: risperiDONE 1 MG TABLET. PO SCH ×2 (09:00→19:57)
[2017-01-20] MEDS: ALLOPURINOL 100 MG TABLET. PO SCH (09:00)
[2017-01-20] MEDS: TAMSULOSIN 0.4 MG CAP.ER.24H. PO SCH (09:00)
[2017-01-20] MEDS: MULTIVITAMIN with MINERAL TABLET. PO SCH (09:00)
[2017-01-20] MEDS: ASCORBIC ACID 500 MG TABLET PO SCH ×2 (09:00→19:57)
[2017-01-20] MEDS: FINASTERIDE 5 MG TABLET PO SCH (09:00)
[2017-01-20] MEDS: SERTRALINE 50 MG TABLET. PO SCH (09:00)
[2017-01-20] MEDS ORDERED: WARFARIN 1 MG TABLET. PO SCH (16:00)
[2017-01-20] MEDS ORDERED: WARFARIN 2.5 MG TABLET. PO SCH (16:00)
[2017-01-20 16:05] VITALS: BP 160/66
[2017-01-20] MEDS: DIVALPROEX ER 500 MG TAB.ER.24H PO SCH (19:57)
[2017-01-20] MEDS: MIRTAZAPINE 30 MG TABLET PO SCH (19:57)
--- NOTE | 2017-01-20 21:35 | PDOC ---
Exam Gonzales Demential Exam: Gonzales Note: Please also refer to the separate dictated note~for this date of service dictated separately.~Patient seen individually. Discussed the patient with Nursing staff reviewed the chart.~Reviewed interim history and current functioning. Reviewed vital signs,~Labs/ Radiology~and current medications noted below. Continue current treatment with the changes noted in the dictated addendum note Assessment: Vital Signs: Vital Signs Date Time Temp Pulse Resp B/P (MAP) Pulse Ox O2 Delivery O2 Flow Rate FiO2 01/20/17 19:58 66 160/66 01/20/17 16:05 97.1 18 98 Room Air I&O Intake and Output 01/21/17 07:00 Intake Total 480 ml Balance 480 ml Intake Oral 480 ml Labs: Laboratory Tests Test 01/20/17 07:21 Prothrombin Time 18.4 SEC (9.4-11.4) H Prothrombin Time INR 1.8 (0.9-1.1) H Current Medications: Meds: Current Medications Sodium Chloride 500 ml @ 0 mls/hr 1X ONCE IV Last administered on 01/06/17 09 :45; Start 01/06/17 at 09:30; Stop 01/06/17 at 09:55; Status DC Sodium Polystyrene Sulfonate (Kayexalate) 15 gm 1X ONCE PO Last administered on 01/06/17 10:40; Start 01/06/17 at 10:00; Stop 01/06/17 at 10:01; Status DC Influenza Virus Vaccine Quadrival (Fluarix Quad [id number] Syringe) 0.5 ml 1X ONCE VAX IM Last administered on 01/07/17 18:12; Start 01/07/17 at 09:00; Stop 01/07/17 at 09:01; Status DC Olanzapine (ZyPREXA ZYDIS) 2.5 mg PRN Q2HR PRN PO Agitation ; Start 01/06/17 at 12:30 Acetaminophen (Tylenol) 650 mg PRN Q4HRS PRN PO PAIN / TEMP; Start 01/06/17 at 12:45 Allopurinol (Zyloprim) 100 mg DAILY PO Last administered on 01/19/17 09:37; Start 01/07/17 at 09:00 Ascorbic Acid (Vitamin C) 500 mg BID PO Last administered on 01/20/17 19:57; Start 01/06/17 at 21:00 Bisacodyl (Dulcolax Supp) 10 mg PRN DAILY PRN RC CONSTIPATION; Start 01/06/17 at 12:45 Finasteride (Proscar) 5 mg DAILY PO Last administered on 01/19/17 09:36; Start 01/07/17 at 09:00 Albuterol/ Ipratropium (Duoneb) 3 ml PRN TID PRN NEB WHEEZING; Start 01/06/17 at 12:45 Al Hydroxide/Mg Hydroxide (Mylanta Plus Xs) 10 ml PRN Q2HR PRN PO INDIGESTION; Start 01/06/17 at 12:45 Magnesium Hydroxide (Milk Of Magnesia) 400 mg PRN QHS PRN PO CONSTIPATION; Start 01/06/17 at 12:45 Methyldopa (Aldomet) 500 mg BID PO Last administered on 01/20/17 19:58; Start 01/06/17 at 21:00 Nitroglycerin (Nitrostat) 0.4 mg PRN Q5MIN PRN SL CHEST PAIN; Start 01/06/17 at 12:45 Silver Sulfadiazine (Silvadene) 1 sapphire BID TP Last administered on 01/08/17 09: 51; Start 01/06/17 at 21:00; Stop 01/08/17 at 22:55; Status DC Tamsulosin HCl (Flomax) 0.4 mg DAILY PO Last administered on 01/19/17 09:36; Start 01/07/17 at 09:00 Warfarin Sodium (Coumadin) 5 mg DAILY16 PO ; Start 01/06/17 at 16:00; Stop 01/06 at 16:00; Status DC Non-Formulary Medication 30 ml DAILY PO ; Start 01/07/17 at 09:00; Stop at 09:00; Status DC Colestipol HCl (Colestid) 5 gm BID PO Last administered on 01/07/17 19:45; Start 01/06/17 at 21:00; Stop 01/08/17 at 08:58; Status DC Mirtazapine (Remeron) 30 mg QHS PO Last administered on 01/20/17 19:57; Start 01/06/17 at 21:00 Risperidone (RisperDAL) 1 mg BID PO Last administered on 01/20/17 19:57; Start 01/06/17 at 21:00 Sertraline HCl (Zoloft) 50 mg DAILY PO Last administered on 01/17/17 09:00; Start 01/07/17 at 09:00; Stop 01/17/17 at 18:54; Status DC Multivitamins/ Calcium (Thera-M Plus) 1 tab DAILY PO Last administered on 01/19 09:36; Start 01/07/17 at 09:00 Warfarin Sodium (Coumadin Per Pharmacy) 1 each PRN DAILY PRN MC SEE COMMENTS Last administered on 01/11/17 14:41; Start 01/07/17 at 11:00; Stop 01/12/17 at 12:09; Status DC Warfarin Sodium (Coumadin - No Dose Today) 1 each 1X WARF ONCE MC Last administered on 01/07/17 16:00; Start 01/07/17 at 16:00; Stop 01/07/17 at 16:01 ; Status DC Levothyroxine Sodium (Synthroid) 25 mcg DAILY07 PO Last administered on 05:47; Start 01/08/17 at 07:00 Divalproex Sodium (Depakote Er) 250 mg QHS PO Last administered on 01/10/17 20 :01; Start 01/07/17 at 21:00; Stop 01/11/17 at 10:17; Status DC Colestipol HCl (Colestid) 5 gm BID@0700,2100 PO Last administered on 19:57; Start 01/08/17 at 09:00 Warfarin Sodium (Coumadin) 5 mg 1X WARF ONCE PO Last administered on 17:31; Start 01/08/17 at 16:00; Stop 01/08/17 at 16:01; Status DC Warfarin Sodium (Coumadin) 5 mg 1X WARF ONCE PO Last administered on 17:09; Start 01/09/17 at 16:00; Stop 01/09/17 at 16:01; Status DC Warfarin Sodium (Coumadin) 4 mg 1X WARF ONCE PO Last administered on 17:57; Start 01/10/17 at 16:00; Stop 01/10/17 at 16:01; Status DC Divalproex Sodium (Depakote Er) 500 mg QHS PO Last administered on 01/13/17 20 :08; Start 01/11/17 at 21:00; Stop 01/14/17 at 19:17; Status DC Warfarin Sodium (Coumadin) 4 mg 1X WARF ONCE PO Last administered on 16:35; Start 01/11/17 at 16:00; Stop 01/12/17 at 12:09; Status DC Pantoprazole Sodium (Protonix) 40 mg DAILYAC PO Last administered on 09:36; Start 01/12/17 at 10:30 Vitamin D (Vitamin D3) 50,000 unit WEEKLY PO Last administered on 01/19/17 09 :41; Start 01/12/17 at 10:30 Ferrous Sulfate (Feosol) 325 mg DAILYWBKFT PO Last administered on 01/19/17 09:37; Start 01/13/17 at 08:00 Warfarin Sodium (Coumadin - No Dose Today) 1 each 1X WARF ONCE MC ; Start 01/12 at 16:00; Stop 01/12/17 at 16:00; Status DC Warfarin Sodium (Coumadin Per Pharmacy) 1 each PRN DAILY PRN MC SEE COMMENTS Last administered on 01/13/17 14:02; Start 01/13/17 at 13:45; Stop 01/15/17 at 17:06; Status DC Warfarin Sodium (Coumadin) 4 mg DAILY16 PO Last administered on 01/14/17 17:43 ; Start 01/13/17 at 16:00; Stop 01/15/17 at 17:06; Status DC Divalproex Sodium (Depakote Er) 750 mg QHS PO Last administered on 01/17/17 19:42; Start 01/14/17 at 21:00; Stop 01/18/17 at 10:53; Status DC Warfarin Sodium (Coumadin) 3 mg 1X WARF ONCE PO Last administered on 16:53; Start 01/16/17 at 16:00; Stop 01/16/17 at 16:01; Status DC Warfarin Sodium (Coumadin Per Physician) 1 each PRN DAILY PRN MC SEE COMMENTS; Start 01/15/17 at 17:15; Stop 01/20/17 at 14:49; Status DC Warfarin Sodium (Coumadin) 3 mg 1X ONCE PO Last administered on 01/17/17 17: 28; Start 01/17/17 at 17:00; Stop 01/17/17 at 17:01; Status DC Warfarin Sodium (Coumadin) 3 mg 1X ONCE PO Last administered on 01/18/17 16: 56; Start 01/18/17 at 16:00; Stop 01/18/17 at 16:01; Status DC Sertraline HCl (Zoloft) 75 mg DAILY PO Last administered on 01/19/17 09:37; Start 01/18/17 at 09:00 Divalproex Sodium (Depakote Er) 1,000 mg QHS PO Last administered on 19:57; Start 01/19/17 at 21:00 Warfarin Sodium (Coumadin) 3 mg 1X WARF ONCE PO Last administered on 17:10; Start 01/19/17 at 16:00; Stop 01/19/17 at 16:01; Status DC Warfarin Sodium (Coumadin) 2.5 mg DAILY16 PO Last administered on 01/20/17 17 :45; Start 01/20/17 at 16:00 Warfarin Sodium (Coumadin) 1 mg DAILY16 PO Last administered on 01/20/17 17: 44; Start 01/20/17 at 16:00 Warfarin Sodium (Coumadin Per Pharmacy) 1 each PRN DAILY PRN MC SEE COMMENTS; Start 01/20/17 at 14:45 Active Scripts Active Reported Zoloft (Sertraline Hcl) 50 Mg Tablet 50 Mg PO DAILY Prosource Plus Liquid Packet (Amino Ac/Protein Hydr/Whey Pro) 30 Ml Liquid.pkt 30 Ml PO DAILY Dulcolax (Bisacodyl) 10 Mg Supp.rect 10 Mg RC PRN DAILY PRN Silvadene (Silver Sulfadiazine) 20 Gm Cream..g. 1 Sapphire TP BID NITROGLYCERIN SubLingual (Nitroglycerin) 0.4 Mg Tab.subl 0.4 Mg SL PRN Q5MIN PRN May repeat x3 doses Maalox Maximum Strength Susp (Mag Hydrox/Al Hydrox/Simeth) 355 Ml Oral.susp 10 Ml PO PRN Q2HR PRN Duoneb 0.5-3(2.5) Mg/3 Ml (Albuterol/Ipratropium) 3 Ml Ampul.neb 3 Ml NEB PRN TID PRN Milk Of Magnesia (Magnesium Hydroxide) 400 Mg/5 Ml Oral.susp 2,400 Mg PO PRN Q3DAYS PRN Tylenol (Acetaminophen) 325 Mg Tablet 650 Mg PO PRN Q4HRS PRN Coumadin (Warfarin Sodium) 5 Mg Tablet 5 Mg PO DAILY16 Multivitamins (Multivitamin) 1 Each Tablet 1 Tab PO DAILY Flomax (Tamsulosin Hcl) 0.4 Mg Cap.er.24h 0.4 Mg PO DAILY Methyldopa 250 Mg Tablet 500 Mg PO BID Hold for SBP <110 or pulse < 55 Mirtazapine 30 Mg Tablet 30 Mg PO QHS Finasteride 5 Mg Tablet 5 Mg PO DAILY Allopurinol 100 Mg Tablet 100 Mg PO DAILY Ascorbic Acid 500 Mg Tablet 500 Mg PO BID Colestipol Hcl 5 Gm Packet 5 Gm PO BID Risperidone 1 Mg Tablet 1 Mg PO BID Diagnosis: Problems: (1) Aggressive behavior (2) Bipolar affective, mixed, sev w/ psych (3) Anxiety disorder (4) Dementia, vascular, with delusions (5) Dementia, vascular, with depression (6) Mild cognitive disorder (7) Major depressive disorder, recurrent episode (8) Psychotic depression (9) Impulse control disorder DIANE KABA MD Jan 20, 2017 21:35
--- NOTE | 2017-01-20 23:14 | PN ---
DATE: 01/19/2017 PSYCHIATRIC PROGRESS NOTE This late entry 01/19/2017 covers elements, not covered in my initial note of 01/19/2017. SUBJECTIVE: I met with the patient evening of 01/19/2017. The patient continues to be quite irritable, somewhat sarcastic in his responses, arguing with staff, defiant with another patient on the unit, gets irritable as one of the other demented patients was aggressive on the unit. Previous evening, he was yelling out, answers at nursing staff, irritable, demanding, labile. REVIEW OF SYSTEMS: Ambulation impaired, in wheelchair. No CV, , pulmonary, eye, ENT system symptoms on review. Reliability poor. MENTAL STATUS EXAM: Oriented to himself and situation. Speech is coherent, abstraction fair, computation impaired, language function intact, attention span short. Mood and affect remain somewhat labile, anxious, dysphoric. No suicidal or homicidal ideation. LABORATORY DATA: Reviewed. Valproic acid level 01/17/2017 was 27. Depakote was increased. Repeat labs in valproic acid level at D1 01/21/2017. PLAN: Continue Risperdal, Remeron, Zoloft, Depakote, which was increased along with Zyprexa p.r.n. Reviewed drug interactions. Risk/benefit ratio favors no further change. MAN Isaías KABA MD DR: LAURY/rosalva JOB#: [id number] / [id number]
--- NOTE | 2017-01-21 01:45 | PN ---
DATE: 01/20/2017 This note covers elements not covered in my initial note of 01/20/2017. SUBJECTIVE: I met with the patient in the evening of 01/20/2017. The patient did reasonably well last evening, but he is extremely short and cryptic in his responses, irritable, agitated, but once he is told how he is coming across. He seems to correct it per nursing report. He told the nurse "you rudely woke me up" and explained that this as the reason for being irritable. Later, he was saying thank you to the [facility] nurse. REVIEW OF SYSTEMS: Ambulation impaired. No CV, , pulmonary, eye, ENT system symptoms on review. Reliability poor. MENTAL STATUS EXAM: Oriented to himself and situation. Speech, moderate latency, often responses monosyllabic. Abstraction fair, computation impaired, language function intact. Mood and affect remains labile, but improved. LABORATORY DATA: Reviewed. IMPRESSION: Unchanged from initial note. PLAN: Continue current psychotropics, check labs and valproic acid level in the morning of ____, adjust Depakote thereafter to a therapeutic level. Maintain the rest unchanged. Review drug contractions, risk/benefit ratio favors no further change. DIANE KABA MD DR: LAURY/rosalva JOB#: [id number] / [id number]
[2017-01-21] MEDS: LEVOTHYROXINE 25 MCG TABLET. PO SCH (06:08)
[2017-01-21 06:15] VITALS: BP 159/77
[2017-01-21 06:52] LABS: BASO # 0.1 x10^3/uL (0.0-0.2); BASO % 2 % (0-3); EOS # 0.4 x10^3/uL (0.0-0.7); EOS % 7 % (0-3); HEMATOCRIT 24.1 % (39.0-53.0); LYMPH # 1.1 x10^3/uL (1.0-4.8); LYMPH % 19 % (24-48); MEAN CORPUSCULAR HEMOGLOBIN 31 pg (25-35); MEAN CORPUSCULAR HGB CONC 33 g/dL (31-37); MEAN CORPUSCULAR VOLUME 95 fL (79-100); MONO # 0.4 x10^3/uL (0.0-1.1); MONO % 8 % (0-9); NEUT # 3.9 x10^3uL (1.8-7.7); NEUT % 65 % (31-73); PLATELET COUNT 258 x10^3/uL (140-400); RED BLOOD COUNT 2.54 x10^6/uL (4.30-5.70); RED CELL DISTRIBUTION WIDTH 19.9 % (11.5-14.5)
[2017-01-21 07:05] LABS: ALBUMIN 2.8 g/dL (3.4-5.0); ALBUMIN/GLOBULIN RATIO 0.9 (1.0-1.7); ALK PHOS 64 U/L (46-116); ALT (SGPT) 16 U/L (16-63); ANION GAP 8 (6-14); AST (SGOT) 19 U/L (15-37); BLOOD UREA NITROGEN 51 mg/dL (8-26); BUN/CREATININE RATIO 22 (6-20); CALCIUM 8.4 mg/dL (8.5-10.1); CARBON DIOXIDE 22 mmol/L (21-32); CHLORIDE 109 mmol/L (98-107); CREATININE 2.3 mg/dL (0.7-1.3); GFR 27.1; GLUCOSE 106 mg/dL (70-99); POTASSIUM 4.9 mmol/L (3.5-5.1); SODIUM 139 mmol/L (136-145); TOTAL BILIRUBIN 0.4 mg/dL (0.2-1.0); TOTAL PROTEIN 5.8 g/dL (6.4-8.2); VAL ACID 38 mcg/mL (50-100)
[2017-01-21] MEDS: COLESTIPOL HCL 1 GM TABLET PO SCH ×3 (08:00→21:00)
[2017-01-21] MEDS: PANTOPRAZOLE 40 MG TABLET. PO SCH (08:16)
[2017-01-21] MEDS: FERROUS SULFATE 325 MG TABLET. PO SCH (08:16)
[2017-01-21] MEDS: METHYLDOPA 250 MG TABLET PO SCH ×2 (08:18→20:39)
[2017-01-21] MEDS: SERTRALINE 50 MG TABLET. PO SCH (08:19)
[2017-01-21] MEDS: ASCORBIC ACID 500 MG TABLET PO SCH ×2 (08:19→20:39)
[2017-01-21] MEDS: MULTIVITAMIN with MINERAL TABLET. PO SCH (08:19)
[2017-01-21] MEDS: TAMSULOSIN 0.4 MG CAP.ER.24H. PO SCH (08:19)
[2017-01-21] MEDS: risperiDONE 1 MG TABLET. PO SCH ×2 (08:19→20:40)
[2017-01-21] MEDS: ALLOPURINOL 100 MG TABLET. PO SCH (08:19)
[2017-01-21] MEDS: FINASTERIDE 5 MG TABLET PO SCH (08:19)
[2017-01-21] MEDS ORDERED: WARFARIN 4 MG TABLET. PO ONE (16:00)
[2017-01-21 16:06] VITALS: BP 139/62
[2017-01-21] MEDS: MIRTAZAPINE 30 MG TABLET PO SCH (20:40)
[2017-01-21] MEDS: DIVALPROEX ER 500 MG TAB.ER.24H PO SCH (20:40)
--- NOTE | 2017-01-21 20:41 | PDOC ---
Exam Gonzales Demential Exam: Gonzales Note: Please also refer to the separate dictated note~for this date of service dictated separately.~Patient seen individually. Discussed the patient with Nursing staff reviewed the chart.~Reviewed interim history and current functioning. Reviewed vital signs,~Labs/ Radiology~and current medications noted below. Continue current treatment with the changes noted in the dictated addendum note Assessment: Vital Signs: Vital Signs Date Time Temp Pulse Resp B/P (MAP) Pulse Ox O2 Delivery O2 Flow Rate FiO2 01/21/17 16:06 97.3 60 16 139/62 (87) 100 Room Air I&O Intake and Output 01/22/17 07:00 Intake Total 960 ml Balance 960 ml Intake Oral 960 ml Labs: Laboratory Tests Test 01/21/17 06:27 White Blood Count 6.0 x10^3/uL (4.0-11.0) Red Blood Count 2.54 x10^6/uL (4.30-5.70) L Hemoglobin 8.0 g/dL (13.0-17.5) L Hematocrit 24.1 % (39.0-53.0) L Mean Corpuscular Volume 95 fL (79-100) Mean Corpuscular Hemoglobin 31 pg (25-35) Mean Corpuscular Hemoglobin Concent 33 g/dL (31-37) Red Cell Distribution Width 19.9 % (11.5-14.5) H Platelet Count 258 x10^3/uL (140-400) Neutrophils (%) (Auto) 65 % (31-73) Lymphocytes (%) (Auto) 19 % (24-48) L Monocytes (%) (Auto) 8 % (0-9) Eosinophils (%) (Auto) 7 % (0-3) H Basophils (%) (Auto) 2 % (0-3) Neutrophils # (Auto) 3.9 x10^3uL (1.8-7.7) Lymphocytes # (Auto) 1.1 x10^3/uL (1.0-4.8) Monocytes # (Auto) 0.4 x10^3/uL (0.0-1.1) Eosinophils # (Auto) 0.4 x10^3/uL (0.0-0.7) Basophils # (Auto) 0.1 x10^3/uL (0.0-0.2) Prothrombin Time 17.7 SEC (9.4-11.4) H Prothrombin Time INR 1.7 (0.9-1.1) H Sodium Level 139 mmol/L (136-145) Potassium Level 4.9 mmol/L (3.5-5.1) Chloride Level 109 mmol/L (98-107) H Carbon Dioxide Level 22 mmol/L (21-32) Anion Gap 8 (6-14) Blood Urea Nitrogen 51 mg/dL (8-26) H Creatinine 2.3 mg/dL (0.7-1.3) H Estimated GFR (Cockcroft-Gault) 27.1 BUN/Creatinine Ratio 22 (6-20) H Glucose Level 106 mg/dL (70-99) H Calcium Level 8.4 mg/dL (8.5-10.1) L Total Bilirubin 0.4 mg/dL (0.2-1.0) Aspartate Amino Transferase (AST) 19 U/L (15-37) Alanine Aminotransferase (ALT) 16 U/L (16-63) Alkaline Phosphatase 64 U/L (46-116) Total Protein 5.8 g/dL (6.4-8.2) L Albumin 2.8 g/dL (3.4-5.0) L Albumin/Globulin Ratio 0.9 (1.0-1.7) L Valproic Acid Level 38 mcg/mL (50-100) L Valproic Acid Last Dose Date 01/20/17 Valproic Acid Last Dose Time 2100 Current Medications: Meds: Current Medications Sodium Chloride 500 ml @ 0 mls/hr 1X ONCE IV Last administered on 01/06/17 09 :45; Start 01/06/17 at 09:30; Stop 01/06/17 at 09:55; Status DC Sodium Polystyrene Sulfonate (Kayexalate) 15 gm 1X ONCE PO Last administered on 01/06/17 10:40; Start 01/06/17 at 10:00; Stop 01/06/17 at 10:01; Status DC Influenza Virus Vaccine Quadrival (Fluarix Quad [id number] Syringe) 0.5 ml 1X ONCE VAX IM Last administered on 01/07/17 18:12; Start 01/07/17 at 09:00; Stop 01/07/17 at 09:01; Status DC Olanzapine (ZyPREXA ZYDIS) 2.5 mg PRN Q2HR PRN PO Agitation ; Start 01/06/17 at 12:30 Acetaminophen (Tylenol) 650 mg PRN Q4HRS PRN PO PAIN / TEMP; Start 01/06/17 at 12:45 Allopurinol (Zyloprim) 100 mg DAILY PO Last administered on 01/21/17 08:19; Start 01/07/17 at 09:00 Ascorbic Acid (Vitamin C) 500 mg BID PO Last administered on 01/21/17 08:19; Start 01/06/17 at 21:00 Bisacodyl (Dulcolax Supp) 10 mg PRN DAILY PRN RC CONSTIPATION; Start 01/06/17 at 12:45 Finasteride (Proscar) 5 mg DAILY PO Last administered on 01/21/17 08:19; Start 01/07/17 at 09:00 Albuterol/ Ipratropium (Duoneb) 3 ml PRN TID PRN NEB WHEEZING; Start 01/06/17 at 12:45 Al Hydroxide/Mg Hydroxide (Mylanta Plus Xs) 10 ml PRN Q2HR PRN PO INDIGESTION; Start 01/06/17 at 12:45 Magnesium Hydroxide (Milk Of Magnesia) 400 mg PRN QHS PRN PO CONSTIPATION; Start 01/06/17 at 12:45 Methyldopa (Aldomet) 500 mg BID PO Last administered on 01/21/17 08:18; Start 01/06/17 at 21:00 Nitroglycerin (Nitrostat) 0.4 mg PRN Q5MIN PRN SL CHEST PAIN; Start 01/06/17 at 12:45 Silver Sulfadiazine (Silvadene) 1 sapphire BID TP Last administered on 01/08/17 09: 51; Start 01/06/17 at 21:00; Stop 01/08/17 at 22:55; Status DC Tamsulosin HCl (Flomax) 0.4 mg DAILY PO Last administered on 01/21/17 08:19; Start 01/07/17 at 09:00 Warfarin Sodium (Coumadin) 5 mg DAILY16 PO ; Start 01/06/17 at 16:00; Stop 01/06 at 16:00; Status DC Non-Formulary Medication 30 ml DAILY PO ; Start 01/07/17 at 09:00; Stop at 09:00; Status DC Colestipol HCl (Colestid) 5 gm BID PO Last administered on 01/07/17 19:45; Start 01/06/17 at 21:00; Stop 01/08/17 at 08:58; Status DC Mirtazapine (Remeron) 30 mg QHS PO Last administered on 01/20/17 19:57; Start 01/06/17 at 21:00 Risperidone (RisperDAL) 1 mg BID PO Last administered on 01/21/17 08:19; Start 01/06/17 at 21:00 Sertraline HCl (Zoloft) 50 mg DAILY PO Last administered on 01/17/17 09:00; Start 01/07/17 at 09:00; Stop 01/17/17 at 18:54; Status DC Multivitamins/ Calcium (Thera-M Plus) 1 tab DAILY PO Last administered on 01/21 08:19; Start 01/07/17 at 09:00 Warfarin Sodium (Coumadin Per Pharmacy) 1 each PRN DAILY PRN MC SEE COMMENTS Last administered on 01/11/17 14:41; Start 01/07/17 at 11:00; Stop 01/12/17 at 12:09; Status DC Warfarin Sodium (Coumadin - No Dose Today) 1 each 1X WARF ONCE MC Last administered on 01/07/17 16:00; Start 01/07/17 at 16:00; Stop 01/07/17 at 16:01 ; Status DC Levothyroxine Sodium (Synthroid) 25 mcg DAILY07 PO Last administered on 06:08; Start 01/08/17 at 07:00 Divalproex Sodium (Depakote Er) 250 mg QHS PO Last administered on 01/10/17 20 :01; Start 01/07/17 at 21:00; Stop 01/11/17 at 10:17; Status DC Colestipol HCl (Colestid) 5 gm BID@0700,2100 PO Last administered on 19:57; Start 01/08/17 at 09:00 Warfarin Sodium (Coumadin) 5 mg 1X WARF ONCE PO Last administered on 17:31; Start 01/08/17 at 16:00; Stop 01/08/17 at 16:01; Status DC Warfarin Sodium (Coumadin) 5 mg 1X WARF ONCE PO Last administered on 17:09; Start 01/09/17 at 16:00; Stop 01/09/17 at 16:01; Status DC Warfarin Sodium (Coumadin) 4 mg 1X WARF ONCE PO Last administered on 17:57; Start 01/10/17 at 16:00; Stop 01/10/17 at 16:01; Status DC Divalproex Sodium (Depakote Er) 500 mg QHS PO Last administered on 01/13/17 20 :08; Start 01/11/17 at 21:00; Stop 01/14/17 at 19:17; Status DC Warfarin Sodium (Coumadin) 4 mg 1X WARF ONCE PO Last administered on 16:35; Start 01/11/17 at 16:00; Stop 01/12/17 at 12:09; Status DC Pantoprazole Sodium (Protonix) 40 mg DAILYAC PO Last administered on 08:16; Start 01/12/17 at 10:30 Vitamin D (Vitamin D3) 50,000 unit WEEKLY PO Last administered on 01/19/17 09 :41; Start 01/12/17 at 10:30 Ferrous Sulfate (Feosol) 325 mg DAILYWBKFT PO Last administered on 01/21/17 08:16; Start 01/13/17 at 08:00 Warfarin Sodium (Coumadin - No Dose Today) 1 each 1X WARF ONCE MC ; Start 01/12 at 16:00; Stop 01/12/17 at 16:00; Status DC Warfarin Sodium (Coumadin Per Pharmacy) 1 each PRN DAILY PRN MC SEE COMMENTS Last administered on 01/13/17 14:02; Start 01/13/17 at 13:45; Stop 01/15/17 at 17:06; Status DC Warfarin Sodium (Coumadin) 4 mg DAILY16 PO Last administered on 01/14/17 17:43 ; Start 01/13/17 at 16:00; Stop 01/15/17 at 17:06; Status DC Divalproex Sodium (Depakote Er) 750 mg QHS PO Last administered on 01/17/17 19:42; Start 01/14/17 at 21:00; Stop 01/18/17 at 10:53; Status DC Warfarin Sodium (Coumadin) 3 mg 1X WARF ONCE PO Last administered on 16:53; Start 01/16/17 at 16:00; Stop 01/16/17 at 16:01; Status DC Warfarin Sodium (Coumadin Per Physician) 1 each PRN DAILY PRN MC SEE COMMENTS; Start 01/15/17 at 17:15; Stop 01/20/17 at 14:49; Status DC Warfarin Sodium (Coumadin) 3 mg 1X ONCE PO Last administered on 01/17/17 17: 28; Start 01/17/17 at 17:00; Stop 01/17/17 at 17:01; Status DC Warfarin Sodium (Coumadin) 3 mg 1X ONCE PO Last administered on 01/18/17 16: 56; Start 01/18/17 at 16:00; Stop 01/18/17 at 16:01; Status DC Sertraline HCl (Zoloft) 75 mg DAILY PO Last administered on 01/21/17 08:19; Start 01/18/17 at 09:00 Divalproex Sodium (Depakote Er) 1,000 mg QHS PO Last administered on 19:57; Start 01/19/17 at 21:00 Warfarin Sodium (Coumadin) 3 mg 1X WARF ONCE PO Last administered on 17:10; Start 01/19/17 at 16:00; Stop 01/19/17 at 16:01; Status DC Warfarin Sodium (Coumadin) 2.5 mg DAILY16 PO Last administered on 01/20/17 17 :45; Start 01/20/17 at 16:00; Stop 01/21/17 at 08:28; Status DC Warfarin Sodium (Coumadin) 1 mg DAILY16 PO Last administered on 01/20/17 17: 44; Start 01/20/17 at 16:00; Stop 01/21/17 at 08:29; Status DC Warfarin Sodium (Coumadin Per Pharmacy) 1 each PRN DAILY PRN MC SEE COMMENTS Last administered on 01/21/17 08:38; Start 01/20/17 at 14:45 Warfarin Sodium (Coumadin) 4 mg 1X WARF ONCE PO Last administered on 17:03; Start 01/21/17 at 16:00; Stop 01/21/17 at 16:01; Status DC Active Scripts Active Reported Zoloft (Sertraline Hcl) 50 Mg Tablet 50 Mg PO DAILY Prosource Plus Liquid Packet (Amino Ac/Protein Hydr/Whey Pro) 30 Ml Liquid.pkt 30 Ml PO DAILY Dulcolax (Bisacodyl) 10 Mg Supp.rect 10 Mg RC PRN DAILY PRN Silvadene (Silver Sulfadiazine) 20 Gm Cream..g. 1 Sapphire TP BID NITROGLYCERIN SubLingual (Nitroglycerin) 0.4 Mg Tab.subl 0.4 Mg SL PRN Q5MIN PRN May repeat x3 doses Maalox Maximum Strength Susp (Mag Hydrox/Al Hydrox/Simeth) 355 Ml Oral.susp 10 Ml PO PRN Q2HR PRN Duoneb 0.5-3(2.5) Mg/3 Ml (Albuterol/Ipratropium) 3 Ml Ampul.neb 3 Ml NEB PRN TID PRN Milk Of Magnesia (Magnesium Hydroxide) 400 Mg/5 Ml Oral.susp 2,400 Mg PO PRN Q3DAYS PRN Tylenol (Acetaminophen) 325 Mg Tablet 650 Mg PO PRN Q4HRS PRN Coumadin (Warfarin Sodium) 5 Mg Tablet 5 Mg PO DAILY16 Multivitamins (Multivitamin) 1 Each Tablet 1 Tab PO DAILY Flomax (Tamsulosin Hcl) 0.4 Mg Cap.er.24h 0.4 Mg PO DAILY Methyldopa 250 Mg Tablet 500 Mg PO BID Hold for SBP <110 or pulse < 55 Mirtazapine 30 Mg Tablet 30 Mg PO QHS Finasteride 5 Mg Tablet 5 Mg PO DAILY Allopurinol 100 Mg Tablet 100 Mg PO DAILY Ascorbic Acid 500 Mg Tablet 500 Mg PO BID Colestipol Hcl 5 Gm Packet 5 Gm PO BID Risperidone 1 Mg Tablet 1 Mg PO BID Diagnosis: Problems: (1) Aggressive behavior (2) Bipolar affective, mixed, sev w/ psych (3) Anxiety disorder (4) Dementia, vascular, with delusions (5) Dementia, vascular, with depression (6) Mild cognitive disorder (7) Major depressive disorder, recurrent episode (8) Psychotic depression (9) Impulse control disorder DIANE KABA MD Jan 21, 2017 20:41
--- NOTE | 2017-01-22 05:30 | PN ---
DATE: 01/18/2017 This late entry, 01/18/2017, covers elements not covered in my initial note of 01/18/2017. I met with the patient evening of 01/18/2017. Overall, the patient remains withdrawn, irritable, somewhat sarcastic with monosyllabic, verbal responses. REVIEW OF SYSTEMS: Ambulation impaired, in wheelchair. No CV, , pulmonary, eye, ENT system symptoms on review. The patient was staffed at treatment team meeting with the entire team morning of 01/18/2017, seen individually evening of 01/18/2017. LABORATORY DATA: Reviewed. IMPRESSION: Unchanged from initial note. PLAN: Continue current psychotropics. Depakote has been increased, level is 27. Repeat labs level. Make further adjustments as clinically indicated. MAN Isaías KABA MD DR: LAURY/rosalva JOB#: [id number] / [id number]
[2017-01-22] MEDS: COLESTIPOL HCL 1 GM TABLET PO SCH ×4 (05:51→19:41)
[2017-01-22] MEDS: LEVOTHYROXINE 25 MCG TABLET. PO SCH (05:51)
[2017-01-22 07:14] VITALS: BP 173/62
[2017-01-22] MEDS: PANTOPRAZOLE 40 MG TABLET. PO SCH (08:06)
[2017-01-22] MEDS: FERROUS SULFATE 325 MG TABLET. PO SCH (08:06)
[2017-01-22] MEDS: SERTRALINE 50 MG TABLET. PO SCH (08:07)
[2017-01-22] MEDS: ALLOPURINOL 100 MG TABLET. PO SCH (08:07)
[2017-01-22] MEDS: FINASTERIDE 5 MG TABLET PO SCH (08:07)
[2017-01-22] MEDS: risperiDONE 1 MG TABLET. PO SCH ×2 (08:07→19:41)
[2017-01-22] MEDS: MULTIVITAMIN with MINERAL TABLET. PO SCH (08:07)
[2017-01-22] MEDS: METHYLDOPA 250 MG TABLET PO SCH ×2 (08:07→19:43)
[2017-01-22] MEDS: TAMSULOSIN 0.4 MG CAP.ER.24H. PO SCH (08:07)
[2017-01-22] MEDS: ASCORBIC ACID 500 MG TABLET PO SCH ×2 (08:07→19:41)
[2017-01-22] MEDS ORDERED: WARFARIN 2.5 MG TABLET. PO ONE (16:00)
[2017-01-22] MEDS ORDERED: WARFARIN 1 MG TABLET. PO ONE (16:00)
[2017-01-22 16:03] VITALS: BP 142/62
[2017-01-22] MEDS: MIRTAZAPINE 30 MG TABLET PO SCH (19:41)
[2017-01-22] MEDS: DIVALPROEX ER 500 MG TAB.ER.24H PO SCH (19:41)
--- NOTE | 2017-01-22 21:19 | PDOC ---
Exam Gonzales Demential Exam: Gonzales Note: Please also refer to the separate dictated note~for this date of service dictated separately.~Patient seen individually. Discussed the patient with Nursing staff reviewed the chart.~Reviewed interim history and current functioning. Reviewed vital signs,~Labs/ Radiology~and current medications noted below. Continue current treatment with the changes noted in the dictated addendum note Assessment: Vital Signs: Vital Signs Date Time Temp Pulse Resp B/P (MAP) Pulse Ox O2 Delivery O2 Flow Rate FiO2 01/22/17 19:43 61 142/62 01/22/17 16:03 97.9 20 99 Room Air I&O Intake and Output 01/23/17 07:00 Intake Total 880 ml Balance 880 ml Intake Oral 880 ml Labs: Laboratory Tests Test 01/22/17 05:49 Prothrombin Time 22.4 SEC (9.4-11.4) H Prothrombin Time INR 2.2 (0.9-1.1) H Current Medications: Meds: Current Medications Sodium Chloride 500 ml @ 0 mls/hr 1X ONCE IV Last administered on 01/06/17 09 :45; Start 01/06/17 at 09:30; Stop 01/06/17 at 09:55; Status DC Sodium Polystyrene Sulfonate (Kayexalate) 15 gm 1X ONCE PO Last administered on 01/06/17 10:40; Start 01/06/17 at 10:00; Stop 01/06/17 at 10:01; Status DC Influenza Virus Vaccine Quadrival (Fluarix Quad 0012-1722 Syringe) 0.5 ml 1X ONCE VAX IM Last administered on 01/07/17 18:12; Start 01/07/17 at 09:00; Stop 01/07/17 at 09:01; Status DC Olanzapine (ZyPREXA ZYDIS) 2.5 mg PRN Q2HR PRN PO Agitation ; Start 01/06/17 at 12:30 Acetaminophen (Tylenol) 650 mg PRN Q4HRS PRN PO PAIN / TEMP; Start 01/06/17 at 12:45 Allopurinol (Zyloprim) 100 mg DAILY PO Last administered on 01/22/17 08:07; Start 01/07/17 at 09:00 Ascorbic Acid (Vitamin C) 500 mg BID PO Last administered on 01/22/17 19:41; Start 01/06/17 at 21:00 Bisacodyl (Dulcolax Supp) 10 mg PRN DAILY PRN RC CONSTIPATION; Start 01/06/17 at 12:45 Finasteride (Proscar) 5 mg DAILY PO Last administered on 01/22/17 08:07; Start 01/07/17 at 09:00 Albuterol/ Ipratropium (Duoneb) 3 ml PRN TID PRN NEB WHEEZING; Start 01/06/17 at 12:45 Al Hydroxide/Mg Hydroxide (Mylanta Plus Xs) 10 ml PRN Q2HR PRN PO INDIGESTION; Start 01/06/17 at 12:45 Magnesium Hydroxide (Milk Of Magnesia) 400 mg PRN QHS PRN PO CONSTIPATION; Start 01/06/17 at 12:45 Methyldopa (Aldomet) 500 mg BID PO Last administered on 01/22/17 19:43; Start 01/06/17 at 21:00 Nitroglycerin (Nitrostat) 0.4 mg PRN Q5MIN PRN SL CHEST PAIN; Start 01/06/17 at 12:45 Silver Sulfadiazine (Silvadene) 1 sapphire BID TP Last administered on 01/08/17 09: 51; Start 01/06/17 at 21:00; Stop 01/08/17 at 22:55; Status DC Tamsulosin HCl (Flomax) 0.4 mg DAILY PO Last administered on 01/22/17 08:07; Start 01/07/17 at 09:00 Warfarin Sodium (Coumadin) 5 mg DAILY16 PO ; Start 01/06/17 at 16:00; Stop 01/06 at 16:00; Status DC Non-Formulary Medication 30 ml DAILY PO ; Start 01/07/17 at 09:00; Stop at 09:00; Status DC Colestipol HCl (Colestid) 5 gm BID PO Last administered on 01/07/17 19:45; Start 01/06/17 at 21:00; Stop 01/08/17 at 08:58; Status DC Mirtazapine (Remeron) 30 mg QHS PO Last administered on 01/22/17 19:41; Start 01/06/17 at 21:00 Risperidone (RisperDAL) 1 mg BID PO Last administered on 01/22/17 19:41; Start 01/06/17 at 21:00 Sertraline HCl (Zoloft) 50 mg DAILY PO Last administered on 01/17/17 09:00; Start 01/07/17 at 09:00; Stop 01/17/17 at 18:54; Status DC Multivitamins/ Calcium (Thera-M Plus) 1 tab DAILY PO Last administered on 01/22 08:07; Start 01/07/17 at 09:00 Warfarin Sodium (Coumadin Per Pharmacy) 1 each PRN DAILY PRN MC SEE COMMENTS Last administered on 01/11/17 14:41; Start 01/07/17 at 11:00; Stop 01/12/17 at 12:09; Status DC Warfarin Sodium (Coumadin - No Dose Today) 1 each 1X WARF ONCE MC Last administered on 01/07/17 16:00; Start 01/07/17 at 16:00; Stop 01/07/17 at 16:01 ; Status DC Levothyroxine Sodium (Synthroid) 25 mcg DAILY07 PO Last administered on 05:51; Start 01/08/17 at 07:00 Divalproex Sodium (Depakote Er) 250 mg QHS PO Last administered on 01/10/17 20 :01; Start 01/07/17 at 21:00; Stop 01/11/17 at 10:17; Status DC Colestipol HCl (Colestid) 5 gm BID@0700,2100 PO Last administered on 19:57; Start 01/08/17 at 09:00 Warfarin Sodium (Coumadin) 5 mg 1X WARF ONCE PO Last administered on 17:31; Start 01/08/17 at 16:00; Stop 01/08/17 at 16:01; Status DC Warfarin Sodium (Coumadin) 5 mg 1X WARF ONCE PO Last administered on 17:09; Start 01/09/17 at 16:00; Stop 01/09/17 at 16:01; Status DC Warfarin Sodium (Coumadin) 4 mg 1X WARF ONCE PO Last administered on 17:57; Start 01/10/17 at 16:00; Stop 01/10/17 at 16:01; Status DC Divalproex Sodium (Depakote Er) 500 mg QHS PO Last administered on 01/13/17 20 :08; Start 01/11/17 at 21:00; Stop 01/14/17 at 19:17; Status DC Warfarin Sodium (Coumadin) 4 mg 1X WARF ONCE PO Last administered on 16:35; Start 01/11/17 at 16:00; Stop 01/12/17 at 12:09; Status DC Pantoprazole Sodium (Protonix) 40 mg DAILYAC PO Last administered on 08:06; Start 01/12/17 at 10:30 Vitamin D (Vitamin D3) 50,000 unit WEEKLY PO Last administered on 01/19/17 09 :41; Start 01/12/17 at 10:30 Ferrous Sulfate (Feosol) 325 mg DAILYWBKFT PO Last administered on 01/22/17 08:06; Start 01/13/17 at 08:00 Warfarin Sodium (Coumadin - No Dose Today) 1 each 1X WARF ONCE MC ; Start 01/12 at 16:00; Stop 01/12/17 at 16:00; Status DC Warfarin Sodium (Coumadin Per Pharmacy) 1 each PRN DAILY PRN MC SEE COMMENTS Last administered on 01/13/17 14:02; Start 01/13/17 at 13:45; Stop 01/15/17 at 17:06; Status DC Warfarin Sodium (Coumadin) 4 mg DAILY16 PO Last administered on 01/14/17 17:43 ; Start 01/13/17 at 16:00; Stop 01/15/17 at 17:06; Status DC Divalproex Sodium (Depakote Er) 750 mg QHS PO Last administered on 01/17/17 19:42; Start 01/14/17 at 21:00; Stop 01/18/17 at 10:53; Status DC Warfarin Sodium (Coumadin) 3 mg 1X WARF ONCE PO Last administered on 16:53; Start 01/16/17 at 16:00; Stop 01/16/17 at 16:01; Status DC Warfarin Sodium (Coumadin Per Physician) 1 each PRN DAILY PRN MC SEE COMMENTS; Start 01/15/17 at 17:15; Stop 01/20/17 at 14:49; Status DC Warfarin Sodium (Coumadin) 3 mg 1X ONCE PO Last administered on 01/17/17 17: 28; Start 01/17/17 at 17:00; Stop 01/17/17 at 17:01; Status DC Warfarin Sodium (Coumadin) 3 mg 1X ONCE PO Last administered on 01/18/17 16: 56; Start 01/18/17 at 16:00; Stop 01/18/17 at 16:01; Status DC Sertraline HCl (Zoloft) 75 mg DAILY PO Last administered on 01/22/17 08:07; Start 01/18/17 at 09:00 Divalproex Sodium (Depakote Er) 1,000 mg QHS PO Last administered on 19:41; Start 01/19/17 at 21:00 Warfarin Sodium (Coumadin) 3 mg 1X WARF ONCE PO Last administered on 17:10; Start 01/19/17 at 16:00; Stop 01/19/17 at 16:01; Status DC Warfarin Sodium (Coumadin) 2.5 mg DAILY16 PO Last administered on 01/20/17 17 :45; Start 01/20/17 at 16:00; Stop 01/21/17 at 08:28; Status DC Warfarin Sodium (Coumadin) 1 mg DAILY16 PO Last administered on 01/20/17 17: 44; Start 01/20/17 at 16:00; Stop 01/21/17 at 08:29; Status DC Warfarin Sodium (Coumadin Per Pharmacy) 1 each PRN DAILY PRN MC SEE COMMENTS Last administered on 01/22/17 13:26; Start 01/20/17 at 14:45 Warfarin Sodium (Coumadin) 4 mg 1X WARF ONCE PO Last administered on 17:03; Start 01/21/17 at 16:00; Stop 01/21/17 at 16:01; Status DC Warfarin Sodium (Coumadin) 2.5 mg 1X WARF ONCE PO Last administered on 17:15; Start 01/22/17 at 16:00; Stop 01/22/17 at 16:01; Status DC Warfarin Sodium (Coumadin) 1 mg 1X WARF ONCE PO Last administered on 17:15; Start 01/22/17 at 16:00; Stop 01/22/17 at 16:01; Status DC Active Scripts Active Reported Zoloft (Sertraline Hcl) 50 Mg Tablet 50 Mg PO DAILY Prosource Plus Liquid Packet (Amino Ac/Protein Hydr/Whey Pro) 30 Ml Liquid.pkt 30 Ml PO DAILY Dulcolax (Bisacodyl) 10 Mg Supp.rect 10 Mg RC PRN DAILY PRN Silvadene (Silver Sulfadiazine) 20 Gm Cream..g. 1 Sapphire TP BID NITROGLYCERIN SubLingual (Nitroglycerin) 0.4 Mg Tab.subl 0.4 Mg SL PRN Q5MIN PRN May repeat x3 doses Maalox Maximum Strength Susp (Mag Hydrox/Al Hydrox/Simeth) 355 Ml Oral.susp 10 Ml PO PRN Q2HR PRN Duoneb 0.5-3(2.5) Mg/3 Ml (Albuterol/Ipratropium) 3 Ml Ampul.neb 3 Ml NEB PRN TID PRN Milk Of Magnesia (Magnesium Hydroxide) 400 Mg/5 Ml Oral.susp 2,400 Mg PO PRN Q3DAYS PRN Tylenol (Acetaminophen) 325 Mg Tablet 650 Mg PO PRN Q4HRS PRN Coumadin (Warfarin Sodium) 5 Mg Tablet 5 Mg PO DAILY16 Multivitamins (Multivitamin) 1 Each Tablet 1 Tab PO DAILY Flomax (Tamsulosin Hcl) 0.4 Mg Cap.er.24h 0.4 Mg PO DAILY Methyldopa 250 Mg Tablet 500 Mg PO BID Hold for SBP <110 or pulse < 55 Mirtazapine 30 Mg Tablet 30 Mg PO QHS Finasteride 5 Mg Tablet 5 Mg PO DAILY Allopurinol 100 Mg Tablet 100 Mg PO DAILY Ascorbic Acid 500 Mg Tablet 500 Mg PO BID Colestipol Hcl 5 Gm Packet 5 Gm PO BID Risperidone 1 Mg Tablet 1 Mg PO BID Diagnosis: Problems: (1) Aggressive behavior (2) Bipolar affective, mixed, sev w/ psych (3) Anxiety disorder (4) Dementia, vascular, with delusions (5) Dementia, vascular, with depression (6) Mild cognitive disorder (7) Major depressive disorder, recurrent episode (8) Psychotic depression (9) Impulse control disorder DIANE KABA MD Jan 22, 2017 21:18
--- NOTE | 2017-01-22 22:02 | PN ---
DATE: 01/21/2017 PSYCHIATRIC PROGRESS NOTE This late entry 01/21/2017 covers elements, not covered in my initial note of 01/21/2017. SUBJECTIVE: I met with the patient evening of 01/21/2017. Overall, the patient remains somewhat irritable, snide in his remarks, somewhat sarcastic, dismissive and I processed this with him. REVIEW OF SYSTEMS: Ambulation impaired, in wheelchair. No CV, , pulmonary, eye, ENT system symptoms on review. MENTAL STATUS EXAM: Oriented to himself and situation. Speech has some latency, often responses monosyllabic, coherent. Abstraction fair, computation impaired, language function intact, attention span short. Mood and affect remain somewhat withdrawn. LABORATORY DATA: Reviewed. IMPRESSION: Unchanged from initial note. PLAN: Continue current psychotropics mentioned in my initial note. Valproic acid level will be repeated since the last level 01/17/2017 was subtherapeutic at 27. Review drug interactions. Risk/benefit ratio favors no further change. MAN Isaías KABA MD DR: LAURY/rosalva JOB#: [id number] / [id number]
[2017-01-23] MEDS: COLESTIPOL HCL 1 GM TABLET PO SCH ×2 (06:02→19:31)
[2017-01-23] MEDS: LEVOTHYROXINE 25 MCG TABLET. PO SCH ×2 (06:03→07:00)
[2017-01-23 06:09] VITALS: BP 178/75
[2017-01-23] MEDS: MULTIVITAMIN with MINERAL TABLET. PO SCH (08:42)
[2017-01-23] MEDS: ASCORBIC ACID 500 MG TABLET PO SCH ×2 (08:42→19:16)
[2017-01-23] MEDS: risperiDONE 1 MG TABLET. PO SCH ×2 (08:42→19:16)
[2017-01-23] MEDS: FINASTERIDE 5 MG TABLET PO SCH (08:42)
[2017-01-23] MEDS: FERROUS SULFATE 325 MG TABLET. PO SCH (08:42)
[2017-01-23] MEDS: SERTRALINE 50 MG TABLET. PO SCH (08:42)
[2017-01-23] MEDS: PANTOPRAZOLE 40 MG TABLET. PO SCH (08:43)
[2017-01-23] MEDS: ALLOPURINOL 100 MG TABLET. PO SCH (08:43)
[2017-01-23] MEDS: TAMSULOSIN 0.4 MG CAP.ER.24H. PO SCH (08:43)
[2017-01-23] MEDS: METHYLDOPA 250 MG TABLET PO SCH ×2 (08:44→19:36)
[2017-01-23 15:56] VITALS: BP 173/70
[2017-01-23] MEDS ORDERED: WARFARIN 3 MG TABLET. PO ONE (16:00)
[2017-01-23] MEDS: MIRTAZAPINE 30 MG TABLET PO SCH (19:30)
[2017-01-23] MEDS: DIVALPROEX ER 500 MG TAB.ER.24H PO SCH (19:35)
--- NOTE | 2017-01-23 20:13 | PDOC ---
Exam Gonzales Demential Exam: Gonzales Note: Please also refer to the separate dictated note~for this date of service dictated separately.~Patient seen individually. Discussed the patient with Nursing staff reviewed the chart.~Reviewed interim history and current functioning. Reviewed vital signs,~Labs/ Radiology~and current medications noted below. Continue current treatment with the changes noted in the dictated addendum note Assessment: Vital Signs: Vital Signs Date Time Temp Pulse Resp B/P (MAP) Pulse Ox O2 Delivery O2 Flow Rate FiO2 01/23/17 19:36 74 173/70 01/23/17 15:56 98.3 18 100 01/22/17 16:03 Room Air I&O Intake and Output 01/24/17 07:00 Intake Total 1080 ml Balance 1080 ml Intake Oral 1080 ml # Bowel Movements 1 Labs: Laboratory Tests Test 01/23/17 06:35 Prothrombin Time 25.2 SEC (9.4-11.4) H Prothrombin Time INR 2.5 (0.9-1.1) H Current Medications: Meds: Current Medications Sodium Chloride 500 ml @ 0 mls/hr 1X ONCE IV Last administered on 01/06/17 09 :45; Start 01/06/17 at 09:30; Stop 01/06/17 at 09:55; Status DC Sodium Polystyrene Sulfonate (Kayexalate) 15 gm 1X ONCE PO Last administered on 01/06/17 10:40; Start 01/06/17 at 10:00; Stop 01/06/17 at 10:01; Status DC Influenza Virus Vaccine Quadrival (Fluarix Quad 7723-1090 Syringe) 0.5 ml 1X ONCE VAX IM Last administered on 01/07/17 18:12; Start 01/07/17 at 09:00; Stop 01/07/17 at 09:01; Status DC Olanzapine (ZyPREXA ZYDIS) 2.5 mg PRN Q2HR PRN PO Agitation ; Start 01/06/17 at 12:30 Acetaminophen (Tylenol) 650 mg PRN Q4HRS PRN PO PAIN / TEMP; Start 01/06/17 at 12:45 Allopurinol (Zyloprim) 100 mg DAILY PO Last administered on 01/23/17 08:43; Start 01/07/17 at 09:00 Ascorbic Acid (Vitamin C) 500 mg BID PO Last administered on 01/23/17 19:16; Start 01/06/17 at 21:00 Bisacodyl (Dulcolax Supp) 10 mg PRN DAILY PRN RC CONSTIPATION; Start 01/06/17 at 12:45 Finasteride (Proscar) 5 mg DAILY PO Last administered on 01/23/17 08:42; Start 01/07/17 at 09:00 Albuterol/ Ipratropium (Duoneb) 3 ml PRN TID PRN NEB WHEEZING; Start 01/06/17 at 12:45 Al Hydroxide/Mg Hydroxide (Mylanta Plus Xs) 10 ml PRN Q2HR PRN PO INDIGESTION; Start 01/06/17 at 12:45 Magnesium Hydroxide (Milk Of Magnesia) 400 mg PRN QHS PRN PO CONSTIPATION; Start 01/06/17 at 12:45 Methyldopa (Aldomet) 500 mg BID PO Last administered on 01/23/17 19:36; Start 01/06/17 at 21:00 Nitroglycerin (Nitrostat) 0.4 mg PRN Q5MIN PRN SL CHEST PAIN; Start 01/06/17 at 12:45 Silver Sulfadiazine (Silvadene) 1 sapphire BID TP Last administered on 01/08/17 09: 51; Start 01/06/17 at 21:00; Stop 01/08/17 at 22:55; Status DC Tamsulosin HCl (Flomax) 0.4 mg DAILY PO Last administered on 01/23/17 08:43; Start 01/07/17 at 09:00 Warfarin Sodium (Coumadin) 5 mg DAILY16 PO ; Start 01/06/17 at 16:00; Stop 01/06 at 16:00; Status DC Non-Formulary Medication 30 ml DAILY PO ; Start 01/07/17 at 09:00; Stop at 09:00; Status DC Colestipol HCl (Colestid) 5 gm BID PO Last administered on 01/07/17 19:45; Start 01/06/17 at 21:00; Stop 01/08/17 at 08:58; Status DC Mirtazapine (Remeron) 30 mg QHS PO Last administered on 01/23/17 19:30; Start 01/06/17 at 21:00 Risperidone (RisperDAL) 1 mg BID PO Last administered on 01/23/17 19:16; Start 01/06/17 at 21:00 Sertraline HCl (Zoloft) 50 mg DAILY PO Last administered on 01/17/17 09:00; Start 01/07/17 at 09:00; Stop 01/17/17 at 18:54; Status DC Multivitamins/ Calcium (Thera-M Plus) 1 tab DAILY PO Last administered on 01/23 08:42; Start 01/07/17 at 09:00 Warfarin Sodium (Coumadin Per Pharmacy) 1 each PRN DAILY PRN MC SEE COMMENTS Last administered on 01/11/17 14:41; Start 01/07/17 at 11:00; Stop 01/12/17 at 12:09; Status DC Warfarin Sodium (Coumadin - No Dose Today) 1 each 1X WARF ONCE MC Last administered on 01/07/17 16:00; Start 01/07/17 at 16:00; Stop 01/07/17 at 16:01 ; Status DC Levothyroxine Sodium (Synthroid) 25 mcg DAILY07 PO Last administered on 05:51; Start 01/08/17 at 07:00 Divalproex Sodium (Depakote Er) 250 mg QHS PO Last administered on 01/10/17 20 :01; Start 01/07/17 at 21:00; Stop 01/11/17 at 10:17; Status DC Colestipol HCl (Colestid) 5 gm BID@0700,2100 PO Last administered on 19:57; Start 01/08/17 at 09:00 Warfarin Sodium (Coumadin) 5 mg 1X WARF ONCE PO Last administered on 17:31; Start 01/08/17 at 16:00; Stop 01/08/17 at 16:01; Status DC Warfarin Sodium (Coumadin) 5 mg 1X WARF ONCE PO Last administered on 17:09; Start 01/09/17 at 16:00; Stop 01/09/17 at 16:01; Status DC Warfarin Sodium (Coumadin) 4 mg 1X WARF ONCE PO Last administered on 17:57; Start 01/10/17 at 16:00; Stop 01/10/17 at 16:01; Status DC Divalproex Sodium (Depakote Er) 500 mg QHS PO Last administered on 01/13/17 20 :08; Start 01/11/17 at 21:00; Stop 01/14/17 at 19:17; Status DC Warfarin Sodium (Coumadin) 4 mg 1X WARF ONCE PO Last administered on 16:35; Start 01/11/17 at 16:00; Stop 01/12/17 at 12:09; Status DC Pantoprazole Sodium (Protonix) 40 mg DAILYAC PO Last administered on 08:43; Start 01/12/17 at 10:30 Vitamin D (Vitamin D3) 50,000 unit WEEKLY PO Last administered on 01/19/17 09 :41; Start 01/12/17 at 10:30 Ferrous Sulfate (Feosol) 325 mg DAILYWBKFT PO Last administered on 01/23/17 08:42; Start 01/13/17 at 08:00 Warfarin Sodium (Coumadin - No Dose Today) 1 each 1X WARF ONCE MC ; Start 01/12 at 16:00; Stop 01/12/17 at 16:00; Status DC Warfarin Sodium (Coumadin Per Pharmacy) 1 each PRN DAILY PRN MC SEE COMMENTS Last administered on 01/13/17 14:02; Start 01/13/17 at 13:45; Stop 01/15/17 at 17:06; Status DC Warfarin Sodium (Coumadin) 4 mg DAILY16 PO Last administered on 01/14/17 17:43 ; Start 01/13/17 at 16:00; Stop 01/15/17 at 17:06; Status DC Divalproex Sodium (Depakote Er) 750 mg QHS PO Last administered on 01/17/17 19:42; Start 01/14/17 at 21:00; Stop 01/18/17 at 10:53; Status DC Warfarin Sodium (Coumadin) 3 mg 1X WARF ONCE PO Last administered on 16:53; Start 01/16/17 at 16:00; Stop 01/16/17 at 16:01; Status DC Warfarin Sodium (Coumadin Per Physician) 1 each PRN DAILY PRN MC SEE COMMENTS; Start 01/15/17 at 17:15; Stop 01/20/17 at 14:49; Status DC Warfarin Sodium (Coumadin) 3 mg 1X ONCE PO Last administered on 01/17/17 17: 28; Start 01/17/17 at 17:00; Stop 01/17/17 at 17:01; Status DC Warfarin Sodium (Coumadin) 3 mg 1X ONCE PO Last administered on 01/18/17 16: 56; Start 01/18/17 at 16:00; Stop 01/18/17 at 16:01; Status DC Sertraline HCl (Zoloft) 75 mg DAILY PO Last administered on 01/23/17 08:42; Start 01/18/17 at 09:00 Divalproex Sodium (Depakote Er) 1,000 mg QHS PO Last administered on 19:41; Start 01/19/17 at 21:00; Stop 01/23/17 at 18:39; Status DC Warfarin Sodium (Coumadin) 3 mg 1X WARF ONCE PO Last administered on 17:10; Start 01/19/17 at 16:00; Stop 01/19/17 at 16:01; Status DC Warfarin Sodium (Coumadin) 2.5 mg DAILY16 PO Last administered on 01/20/17 17 :45; Start 01/20/17 at 16:00; Stop 01/21/17 at 08:28; Status DC Warfarin Sodium (Coumadin) 1 mg DAILY16 PO Last administered on 01/20/17 17: 44; Start 01/20/17 at 16:00; Stop 01/21/17 at 08:29; Status DC Warfarin Sodium (Coumadin Per Pharmacy) 1 each PRN DAILY PRN MC SEE COMMENTS Last administered on 01/23/17 14:22; Start 01/20/17 at 14:45 Warfarin Sodium (Coumadin) 4 mg 1X WARF ONCE PO Last administered on 17:03; Start 01/21/17 at 16:00; Stop 01/21/17 at 16:01; Status DC Warfarin Sodium (Coumadin) 2.5 mg 1X WARF ONCE PO Last administered on 17:15; Start 01/22/17 at 16:00; Stop 01/22/17 at 16:01; Status DC Warfarin Sodium (Coumadin) 1 mg 1X WARF ONCE PO Last administered on 10/16/ 17at 17:15; Start 01/22/17 at 16:00; Stop 01/22/17 at 16:01; Status DC Warfarin Sodium (Coumadin) 3 mg 1X WARF ONCE PO Last administered on 16:27; Start 01/23/17 at 16:00; Stop 01/23/17 at 16:01; Status DC Divalproex Sodium (Depakote Er) 1,500 mg QHS PO Last administered on 19:35; Start 01/23/17 at 21:00 Active Scripts Active Reported Zoloft (Sertraline Hcl) 50 Mg Tablet 50 Mg PO DAILY Prosource Plus Liquid Packet (Amino Ac/Protein Hydr/Whey Pro) 30 Ml Liquid.pkt 30 Ml PO DAILY Dulcolax (Bisacodyl) 10 Mg Supp.rect 10 Mg RC PRN DAILY PRN Silvadene (Silver Sulfadiazine) 20 Gm Cream..g. 1 Sapphire TP BID NITROGLYCERIN SubLingual (Nitroglycerin) 0.4 Mg Tab.subl 0.4 Mg SL PRN Q5MIN PRN May repeat x3 doses Maalox Maximum Strength Susp (Mag Hydrox/Al Hydrox/Simeth) 355 Ml Oral.susp 10 Ml PO PRN Q2HR PRN Duoneb 0.5-3(2.5) Mg/3 Ml (Albuterol/Ipratropium) 3 Ml Ampul.neb 3 Ml NEB PRN TID PRN Milk Of Magnesia (Magnesium Hydroxide) 400 Mg/5 Ml Oral.susp 2,400 Mg PO PRN Q3DAYS PRN Tylenol (Acetaminophen) 325 Mg Tablet 650 Mg PO PRN Q4HRS PRN Coumadin (Warfarin Sodium) 5 Mg Tablet 5 Mg PO DAILY16 Multivitamins (Multivitamin) 1 Each Tablet 1 Tab PO DAILY Flomax (Tamsulosin Hcl) 0.4 Mg Cap.er.24h 0.4 Mg PO DAILY Methyldopa 250 Mg Tablet 500 Mg PO BID Hold for SBP <110 or pulse < 55 Mirtazapine 30 Mg Tablet 30 Mg PO QHS Finasteride 5 Mg Tablet 5 Mg PO DAILY Allopurinol 100 Mg Tablet 100 Mg PO DAILY Ascorbic Acid 500 Mg Tablet 500 Mg PO BID Colestipol Hcl 5 Gm Packet 5 Gm PO BID Risperidone 1 Mg Tablet 1 Mg PO BID Diagnosis: Problems: (1) Aggressive behavior (2) Bipolar affective, mixed, sev w/ psych (3) Anxiety disorder (4) Dementia, vascular, with delusions (5) Dementia, vascular, with depression (6) Mild cognitive disorder (7) Major depressive disorder, recurrent episode (8) Psychotic depression (9) Impulse control disorder DIANE KABA MD Jan 23, 2017 20:13
--- NOTE | 2017-01-24 02:10 | PN ---
DATE: 01/22/2017 PSYCHIATRIC PROGRESS NOTE This is late entry for date of service 01/22/2017 covers the elements not covered in my initial note of 01/22/2017. I met with the patient evening of 01/22/2017. The patient had a better night per nursing report, less angry, less irritable, still very snappy, monosyllabic in his verbal responses as I met with him. REVIEW OF SYSTEMS: Ambulation impaired, in a wheelchair. No CV, , pulmonary, eye, ENT system symptoms on review. Reliability poor. MENTAL STATUS EXAM: Oriented to himself and situation. Insight, judgment, recent memory is impaired. Language function intact. Attention span short. Mood and affect still depressed, but showing improvement, less psychotic, less paranoid. LABORATORY DATA: Reviewed. IMPRESSION: Unchanged from initial note. PLAN: Continue psychotropics mentioned in my initial note, Risperdal, Remeron, Zoloft, together with Depakote and Zyprexa p.r.n. Reviewed drug interactions, risk/benefit ratio favors no further change. MAN Isaías KABA MD DR: LAURY/rosalva JOB#: [id number] / [id number]
[2017-01-24 05:52] VITALS: BP 169/63
[2017-01-24] MEDS: COLESTIPOL HCL 1 GM TABLET PO SCH ×2 (06:10→19:05)
[2017-01-24] MEDS: LEVOTHYROXINE 25 MCG TABLET. PO SCH (06:11)
[2017-01-24] MEDS: ALLOPURINOL 100 MG TABLET. PO SCH (08:38)
[2017-01-24] MEDS: FINASTERIDE 5 MG TABLET PO SCH (08:38)
[2017-01-24] MEDS: PANTOPRAZOLE 40 MG TABLET. PO SCH (08:38)
[2017-01-24] MEDS: ASCORBIC ACID 500 MG TABLET PO SCH ×2 (08:38→19:05)
[2017-01-24] MEDS: MULTIVITAMIN with MINERAL TABLET. PO SCH (08:38)
[2017-01-24] MEDS: TAMSULOSIN 0.4 MG CAP.ER.24H. PO SCH (08:39)
[2017-01-24] MEDS: SERTRALINE 50 MG TABLET. PO SCH (08:39)
[2017-01-24] MEDS: FERROUS SULFATE 325 MG TABLET. PO SCH (08:39)
[2017-01-24] MEDS: risperiDONE 1 MG TABLET. PO SCH ×2 (08:39→19:05)
[2017-01-24] MEDS: METHYLDOPA 250 MG TABLET PO SCH ×2 (08:40→19:07)
[2017-01-24] MEDS ORDERED: WARFARIN 1 MG TABLET. PO ONE (16:00)
[2017-01-24] MEDS ORDERED: WARFARIN 2.5 MG TABLET. PO ONE (16:00)
[2017-01-24 16:12] VITALS: BP 155/62
[2017-01-24] MEDS: MIRTAZAPINE 30 MG TABLET PO SCH (19:05)
[2017-01-24] MEDS: DIVALPROEX ER 500 MG TAB.ER.24H PO SCH (19:05)
--- NOTE | 2017-01-24 20:41 | PDOC ---
Exam Gonzales Demential Exam: Gonzales Note: Please also refer to the separate dictated note~for this date of service dictated separately.~Patient seen individually. Discussed the patient with Nursing staff reviewed the chart.~Reviewed interim history and current functioning. Reviewed vital signs,~Labs/ Radiology~and current medications noted below. Continue current treatment with the changes noted in the dictated addendum note Assessment: Vital Signs: Vital Signs Date Time Temp Pulse Resp B/P (MAP) Pulse Ox O2 Delivery O2 Flow Rate FiO2 01/24/17 19:07 68 155/62 01/24/17 16:12 97.5 16 98 01/22/17 16:03 Room Air I&O Intake and Output 01/25/17 06:59 Intake Total 840 ml Balance 840 ml Intake Oral 840 ml Labs: Laboratory Tests Test 01/24/17 06:39 Prothrombin Time 24.0 SEC (9.4-11.4) H Prothrombin Time INR 2.4 (0.9-1.1) H Current Medications: Meds: Current Medications Sodium Chloride 500 ml @ 0 mls/hr 1X ONCE IV Last administered on 01/06/17 09 :45; Start 01/06/17 at 09:30; Stop 01/06/17 at 09:55; Status DC Sodium Polystyrene Sulfonate (Kayexalate) 15 gm 1X ONCE PO Last administered on 01/06/17 10:40; Start 01/06/17 at 10:00; Stop 01/06/17 at 10:01; Status DC Influenza Virus Vaccine Quadrival (Fluarix Quad [id number] Syringe) 0.5 ml 1X ONCE VAX IM Last administered on 01/07/17 18:12; Start 01/07/17 at 09:00; Stop 01/07/17 at 09:01; Status DC Olanzapine (ZyPREXA ZYDIS) 2.5 mg PRN Q2HR PRN PO Agitation ; Start 01/06/17 at 12:30 Acetaminophen (Tylenol) 650 mg PRN Q4HRS PRN PO PAIN / TEMP; Start 01/06/17 at 12:45 Allopurinol (Zyloprim) 100 mg DAILY PO Last administered on 01/24/17 08:38; Start 01/07/17 at 09:00 Ascorbic Acid (Vitamin C) 500 mg BID PO Last administered on 01/24/17 19:05; Start 01/06/17 at 21:00 Bisacodyl (Dulcolax Supp) 10 mg PRN DAILY PRN RC CONSTIPATION; Start 01/06/17 at 12:45 Finasteride (Proscar) 5 mg DAILY PO Last administered on 01/24/17 08:38; Start 01/07/17 at 09:00 Albuterol/ Ipratropium (Duoneb) 3 ml PRN TID PRN NEB WHEEZING; Start 01/06/17 at 12:45 Al Hydroxide/Mg Hydroxide (Mylanta Plus Xs) 10 ml PRN Q2HR PRN PO INDIGESTION; Start 01/06/17 at 12:45 Magnesium Hydroxide (Milk Of Magnesia) 400 mg PRN QHS PRN PO CONSTIPATION; Start 01/06/17 at 12:45 Methyldopa (Aldomet) 500 mg BID PO Last administered on 01/24/17 19:07; Start 01/06/17 at 21:00 Nitroglycerin (Nitrostat) 0.4 mg PRN Q5MIN PRN SL CHEST PAIN; Start 01/06/17 at 12:45 Silver Sulfadiazine (Silvadene) 1 sapphire BID TP Last administered on 01/08/17 09: 51; Start 01/06/17 at 21:00; Stop 01/08/17 at 22:55; Status DC Tamsulosin HCl (Flomax) 0.4 mg DAILY PO Last administered on 01/24/17 08:39; Start 01/07/17 at 09:00 Warfarin Sodium (Coumadin) 5 mg DAILY16 PO ; Start 01/06/17 at 16:00; Stop 01/06 at 16:00; Status DC Non-Formulary Medication 30 ml DAILY PO ; Start 01/07/17 at 09:00; Stop at 09:00; Status DC Colestipol HCl (Colestid) 5 gm BID PO Last administered on 01/07/17 19:45; Start 01/06/17 at 21:00; Stop 01/08/17 at 08:58; Status DC Mirtazapine (Remeron) 30 mg QHS PO Last administered on 01/24/17 19:05; Start 01/06/17 at 21:00 Risperidone (RisperDAL) 1 mg BID PO Last administered on 01/24/17 19:05; Start 01/06/17 at 21:00 Sertraline HCl (Zoloft) 50 mg DAILY PO Last administered on 01/17/17 09:00; Start 01/07/17 at 09:00; Stop 01/17/17 at 18:54; Status DC Multivitamins/ Calcium (Thera-M Plus) 1 tab DAILY PO Last administered on 01/24 08:38; Start 01/07/17 at 09:00 Warfarin Sodium (Coumadin Per Pharmacy) 1 each PRN DAILY PRN MC SEE COMMENTS Last administered on 01/11/17 14:41; Start 01/07/17 at 11:00; Stop 01/12/17 at 12:09; Status DC Warfarin Sodium (Coumadin - No Dose Today) 1 each 1X WARF ONCE MC Last administered on 01/07/17 16:00; Start 01/07/17 at 16:00; Stop 01/07/17 at 16:01 ; Status DC Levothyroxine Sodium (Synthroid) 25 mcg DAILY07 PO Last administered on 06:11; Start 01/08/17 at 07:00 Divalproex Sodium (Depakote Er) 250 mg QHS PO Last administered on 01/10/17 20 :01; Start 01/07/17 at 21:00; Stop 01/11/17 at 10:17; Status DC Colestipol HCl (Colestid) 5 gm BID@0700,2100 PO Last administered on 19:57; Start 01/08/17 at 09:00 Warfarin Sodium (Coumadin) 5 mg 1X WARF ONCE PO Last administered on 17:31; Start 01/08/17 at 16:00; Stop 01/08/17 at 16:01; Status DC Warfarin Sodium (Coumadin) 5 mg 1X WARF ONCE PO Last administered on 17:09; Start 01/09/17 at 16:00; Stop 01/09/17 at 16:01; Status DC Warfarin Sodium (Coumadin) 4 mg 1X WARF ONCE PO Last administered on 17:57; Start 01/10/17 at 16:00; Stop 01/10/17 at 16:01; Status DC Divalproex Sodium (Depakote Er) 500 mg QHS PO Last administered on 01/13/17 20 :08; Start 01/11/17 at 21:00; Stop 01/14/17 at 19:17; Status DC Warfarin Sodium (Coumadin) 4 mg 1X WARF ONCE PO Last administered on 16:35; Start 01/11/17 at 16:00; Stop 01/12/17 at 12:09; Status DC Pantoprazole Sodium (Protonix) 40 mg DAILYAC PO Last administered on 08:38; Start 01/12/17 at 10:30 Vitamin D (Vitamin D3) 50,000 unit WEEKLY PO Last administered on 01/19/17 09 :41; Start 01/12/17 at 10:30 Ferrous Sulfate (Feosol) 325 mg DAILYWBKFT PO Last administered on 01/24/17 08:39; Start 01/13/17 at 08:00 Warfarin Sodium (Coumadin - No Dose Today) 1 each 1X WARF ONCE MC ; Start 01/12 at 16:00; Stop 01/12/17 at 16:00; Status DC Warfarin Sodium (Coumadin Per Pharmacy) 1 each PRN DAILY PRN MC SEE COMMENTS Last administered on 01/13/17 14:02; Start 01/13/17 at 13:45; Stop 01/15/17 at 17:06; Status DC Warfarin Sodium (Coumadin) 4 mg DAILY16 PO Last administered on 01/14/17 17:43 ; Start 01/13/17 at 16:00; Stop 01/15/17 at 17:06; Status DC Divalproex Sodium (Depakote Er) 750 mg QHS PO Last administered on 01/17/17 19:42; Start 01/14/17 at 21:00; Stop 01/18/17 at 10:53; Status DC Warfarin Sodium (Coumadin) 3 mg 1X WARF ONCE PO Last administered on 16:53; Start 01/16/17 at 16:00; Stop 01/16/17 at 16:01; Status DC Warfarin Sodium (Coumadin Per Physician) 1 each PRN DAILY PRN MC SEE COMMENTS; Start 01/15/17 at 17:15; Stop 01/20/17 at 14:49; Status DC Warfarin Sodium (Coumadin) 3 mg 1X ONCE PO Last administered on 01/17/17 17: 28; Start 01/17/17 at 17:00; Stop 01/17/17 at 17:01; Status DC Warfarin Sodium (Coumadin) 3 mg 1X ONCE PO Last administered on 01/18/17 16: 56; Start 01/18/17 at 16:00; Stop 01/18/17 at 16:01; Status DC Sertraline HCl (Zoloft) 75 mg DAILY PO Last administered on 01/24/17 08:39; Start 01/18/17 at 09:00 Divalproex Sodium (Depakote Er) 1,000 mg QHS PO Last administered on 19:41; Start 01/19/17 at 21:00; Stop 01/23/17 at 18:39; Status DC Warfarin Sodium (Coumadin) 3 mg 1X WARF ONCE PO Last administered on 17:10; Start 01/19/17 at 16:00; Stop 01/19/17 at 16:01; Status DC Warfarin Sodium (Coumadin) 2.5 mg DAILY16 PO Last administered on 01/20/17 17 :45; Start 01/20/17 at 16:00; Stop 01/21/17 at 08:28; Status DC Warfarin Sodium (Coumadin) 1 mg DAILY16 PO Last administered on 01/20/17 17: 44; Start 01/20/17 at 16:00; Stop 01/21/17 at 08:29; Status DC Warfarin Sodium (Coumadin Per Pharmacy) 1 each PRN DAILY PRN MC SEE COMMENTS Last administered on 01/24/17 11:33; Start 01/20/17 at 14:45 Warfarin Sodium (Coumadin) 4 mg 1X WARF ONCE PO Last administered on 17:03; Start 01/21/17 at 16:00; Stop 01/21/17 at 16:01; Status DC Warfarin Sodium (Coumadin) 2.5 mg 1X WARF ONCE PO Last administered on 17:15; Start 01/22/17 at 16:00; Stop 01/22/17 at 16:01; Status DC Warfarin Sodium (Coumadin) 1 mg 1X WARF ONCE PO Last administered on 17:15; Start 01/22/17 at 16:00; Stop 01/22/17 at 16:01; Status DC Warfarin Sodium (Coumadin) 3 mg 1X WARF ONCE PO Last administered on 16:27; Start 01/23/17 at 16:00; Stop 01/23/17 at 16:01; Status DC Divalproex Sodium (Depakote Er) 1,500 mg QHS PO Last administered on 19:05; Start 01/23/17 at 21:00 Warfarin Sodium (Coumadin) 1 mg 1X WARF ONCE PO Last administered on 16:48; Start 01/24/17 at 16:00; Stop 01/24/17 at 16:01; Status DC Warfarin Sodium (Coumadin) 2.5 mg 1X WARF ONCE PO Last administered on 16:47; Start 01/24/17 at 16:00; Stop 01/24/17 at 16:01; Status DC Active Scripts Active Reported Zoloft (Sertraline Hcl) 50 Mg Tablet 50 Mg PO DAILY Prosource Plus Liquid Packet (Amino Ac/Protein Hydr/Whey Pro) 30 Ml Liquid.pkt 30 Ml PO DAILY Dulcolax (Bisacodyl) 10 Mg Supp.rect 10 Mg RC PRN DAILY PRN Silvadene (Silver Sulfadiazine) 20 Gm Cream..g. 1 Sapphire TP BID NITROGLYCERIN SubLingual (Nitroglycerin) 0.4 Mg Tab.subl 0.4 Mg SL PRN Q5MIN PRN May repeat x3 doses Maalox Maximum Strength Susp (Mag Hydrox/Al Hydrox/Simeth) 355 Ml Oral.susp 10 Ml PO PRN Q2HR PRN Duoneb 0.5-3(2.5) Mg/3 Ml (Albuterol/Ipratropium) 3 Ml Ampul.neb 3 Ml NEB PRN TID PRN Milk Of Magnesia (Magnesium Hydroxide) 400 Mg/5 Ml Oral.susp 2,400 Mg PO PRN Q3DAYS PRN Tylenol (Acetaminophen) 325 Mg Tablet 650 Mg PO PRN Q4HRS PRN Coumadin (Warfarin Sodium) 5 Mg Tablet 5 Mg PO DAILY16 Multivitamins (Multivitamin) 1 Each Tablet 1 Tab PO DAILY Flomax (Tamsulosin Hcl) 0.4 Mg Cap.er.24h 0.4 Mg PO DAILY Methyldopa 250 Mg Tablet 500 Mg PO BID Hold for SBP <110 or pulse < 55 Mirtazapine 30 Mg Tablet 30 Mg PO QHS Finasteride 5 Mg Tablet 5 Mg PO DAILY Allopurinol 100 Mg Tablet 100 Mg PO DAILY Ascorbic Acid 500 Mg Tablet 500 Mg PO BID Colestipol Hcl 5 Gm Packet 5 Gm PO BID Risperidone 1 Mg Tablet 1 Mg PO BID Diagnosis: Problems: (1) Aggressive behavior (2) Bipolar affective, mixed, sev w/ psych (3) Anxiety disorder (4) Dementia, vascular, with delusions (5) Dementia, vascular, with depression (6) Mild cognitive disorder (7) Major depressive disorder, recurrent episode (8) Psychotic depression (9) Impulse control disorder DIANE KABA MD Jan 24, 2017 20:41
--- NOTE | 2017-01-24 23:50 | PN ---
DATE: 01/23/2017 PSYCHIATRIC PROGRESS NOTE This late entry 01/23/2017 covers elements, not covered in my initial note of 01/23/2017. SUBJECTIVE: I met with the patient in the evening of 01/23/2017. Overall, the patient did a little bit better in the morning, but towards the afternoon and evening, he was once again rude, sarcastic, monosyllabic, abrasive, verbal responses to staff interventions. REVIEW OF SYSTEMS: Ambulation impaired, in wheelchair. No CV, , pulmonary, eye, ENT system symptoms on review. Reliability poor. MENTAL STATUS EXAM: Oriented to himself and situation. Speech is moderate latency, often responses monosyllabic. Abstraction fair, computation impaired, language function intact, attention span short, mood and affect somewhat withdrawn. LABORATORY DATA: Reviewed. IMPRESSION: Unchanged from initial note. PLAN: Valproic acid level subtherapeutic at 38, increased Depakote ER from 1000 mg at bedtime to 1500 mg at bedtime. Check CBC, CMP, valproic acid level in 3 days. Continue Risperdal, Remeron, Zoloft along with Zyprexa p.r.n. Reviewed drug interactions. Risk/benefit ratio favors no further change. DIANE KABA MD DR: LAURY/rosalva JOB#: [id number] / [id number]
[2017-01-25] MEDS: LEVOTHYROXINE 25 MCG TABLET. PO SCH (05:53)
[2017-01-25] MEDS: COLESTIPOL HCL 1 GM TABLET PO SCH ×2 (05:53→19:43)
[2017-01-25 06:15] VITALS: BP 188/72
[2017-01-25] MEDS: risperiDONE 1 MG TABLET. PO SCH ×2 (11:40→19:44)
[2017-01-25] MEDS: ALLOPURINOL 100 MG TABLET. PO SCH (11:40)
[2017-01-25] MEDS: PANTOPRAZOLE 40 MG TABLET. PO SCH (11:40)
[2017-01-25] MEDS: TAMSULOSIN 0.4 MG CAP.ER.24H. PO SCH (11:40)
[2017-01-25] MEDS: MULTIVITAMIN with MINERAL TABLET. PO SCH (11:40)
[2017-01-25] MEDS: ASCORBIC ACID 500 MG TABLET PO SCH ×2 (11:41→19:44)
[2017-01-25] MEDS: SERTRALINE 50 MG TABLET. PO SCH (11:41)
[2017-01-25] MEDS: FINASTERIDE 5 MG TABLET PO SCH (11:41)
[2017-01-25] MEDS: FERROUS SULFATE 325 MG TABLET. PO SCH (11:41)
[2017-01-25] MEDS: METHYLDOPA 250 MG TABLET PO SCH ×2 (11:46→19:44)
[2017-01-25 16:15] VITALS: BP 179/79
[2017-01-25] MEDS: WARFARIN 1 MG TABLET. PO SCH (17:21)
[2017-01-25] MEDS: WARFARIN 2.5 MG TABLET. PO SCH (17:27)
[2017-01-25] MEDS: MIRTAZAPINE 30 MG TABLET PO SCH (19:44)
[2017-01-25] MEDS: DIVALPROEX ER 500 MG TAB.ER.24H PO SCH (19:44)
--- NOTE | 2017-01-25 20:45 | PDOC ---
Exam Gonzales Demential Exam: Gonzales Note: Please also refer to the separate dictated note~for this date of service dictated separately.~Patient seen individually. Discussed the patient with Nursing staff reviewed the chart.~Reviewed interim history and current functioning. Reviewed vital signs,~Labs/ Radiology~and current medications noted below. Continue current treatment with the changes noted in the dictated addendum note Assessment: Vital Signs: Vital Signs Date Time Temp Pulse Resp B/P (MAP) Pulse Ox O2 Delivery O2 Flow Rate FiO2 01/25/17 19:44 71 179/79 01/25/17 16:15 98.1 18 98 01/22/17 16:03 Room Air I&O Intake and Output 01/26/17 07:00 Intake Total 480 ml Balance 480 ml Intake Oral 480 ml Labs: Laboratory Tests Test 01/25/17 06:03 Prothrombin Time 24.0 SEC (9.4-11.4) H Prothrombin Time INR 2.4 (0.9-1.1) H Current Medications: Meds: Current Medications Sodium Chloride 500 ml @ 0 mls/hr 1X ONCE IV Last administered on 01/06/17 09 :45; Start 01/06/17 at 09:30; Stop 01/06/17 at 09:55; Status DC Sodium Polystyrene Sulfonate (Kayexalate) 15 gm 1X ONCE PO Last administered on 01/06/17 10:40; Start 01/06/17 at 10:00; Stop 01/06/17 at 10:01; Status DC Influenza Virus Vaccine Quadrival (Fluarix Quad [id number] Syringe) 0.5 ml 1X ONCE VAX IM Last administered on 01/07/17 18:12; Start 01/07/17 at 09:00; Stop 01/07/17 at 09:01; Status DC Olanzapine (ZyPREXA ZYDIS) 2.5 mg PRN Q2HR PRN PO Agitation ; Start 01/06/17 at 12:30 Acetaminophen (Tylenol) 650 mg PRN Q4HRS PRN PO PAIN / TEMP; Start 01/06/17 at 12:45 Allopurinol (Zyloprim) 100 mg DAILY PO Last administered on 01/25/17 11:40; Start 01/07/17 at 09:00 Ascorbic Acid (Vitamin C) 500 mg BID PO Last administered on 01/25/17 19:44; Start 01/06/17 at 21:00 Bisacodyl (Dulcolax Supp) 10 mg PRN DAILY PRN RC CONSTIPATION; Start 01/06/17 at 12:45 Finasteride (Proscar) 5 mg DAILY PO Last administered on 01/25/17 11:41; Start 01/07/17 at 09:00 Albuterol/ Ipratropium (Duoneb) 3 ml PRN TID PRN NEB WHEEZING; Start 01/06/17 at 12:45 Al Hydroxide/Mg Hydroxide (Mylanta Plus Xs) 10 ml PRN Q2HR PRN PO INDIGESTION; Start 01/06/17 at 12:45 Magnesium Hydroxide (Milk Of Magnesia) 400 mg PRN QHS PRN PO CONSTIPATION; Start 01/06/17 at 12:45 Methyldopa (Aldomet) 500 mg BID PO Last administered on 01/25/17 19:44; Start 01/06/17 at 21:00 Nitroglycerin (Nitrostat) 0.4 mg PRN Q5MIN PRN SL CHEST PAIN; Start 01/06/17 at 12:45 Silver Sulfadiazine (Silvadene) 1 sapphire BID TP Last administered on 01/08/17 09: 51; Start 01/06/17 at 21:00; Stop 01/08/17 at 22:55; Status DC Tamsulosin HCl (Flomax) 0.4 mg DAILY PO Last administered on 01/25/17 11:40; Start 01/07/17 at 09:00 Warfarin Sodium (Coumadin) 5 mg DAILY16 PO ; Start 01/06/17 at 16:00; Stop 01/06 at 16:00; Status DC Non-Formulary Medication 30 ml DAILY PO ; Start 01/07/17 at 09:00; Stop at 09:00; Status DC Colestipol HCl (Colestid) 5 gm BID PO Last administered on 01/07/17 19:45; Start 01/06/17 at 21:00; Stop 01/08/17 at 08:58; Status DC Mirtazapine (Remeron) 30 mg QHS PO Last administered on 01/25/17 19:44; Start 01/06/17 at 21:00 Risperidone (RisperDAL) 1 mg BID PO Last administered on 01/25/17 19:44; Start 01/06/17 at 21:00 Sertraline HCl (Zoloft) 50 mg DAILY PO Last administered on 01/17/17 09:00; Start 01/07/17 at 09:00; Stop 01/17/17 at 18:54; Status DC Multivitamins/ Calcium (Thera-M Plus) 1 tab DAILY PO Last administered on 01/25 11:40; Start 01/07/17 at 09:00 Warfarin Sodium (Coumadin Per Pharmacy) 1 each PRN DAILY PRN MC SEE COMMENTS Last administered on 01/11/17 14:41; Start 01/07/17 at 11:00; Stop 01/12/17 at 12:09; Status DC Warfarin Sodium (Coumadin - No Dose Today) 1 each 1X WARF ONCE MC Last administered on 01/07/17 16:00; Start 01/07/17 at 16:00; Stop 01/07/17 at 16:01 ; Status DC Levothyroxine Sodium (Synthroid) 25 mcg DAILY07 PO Last administered on 05:53; Start 01/08/17 at 07:00 Divalproex Sodium (Depakote Er) 250 mg QHS PO Last administered on 01/10/17 20 :01; Start 01/07/17 at 21:00; Stop 01/11/17 at 10:17; Status DC Colestipol HCl (Colestid) 5 gm BID@0700,2100 PO Last administered on 19:43; Start 01/08/17 at 09:00 Warfarin Sodium (Coumadin) 5 mg 1X WARF ONCE PO Last administered on 17:31; Start 01/08/17 at 16:00; Stop 01/08/17 at 16:01; Status DC Warfarin Sodium (Coumadin) 5 mg 1X WARF ONCE PO Last administered on 17:09; Start 01/09/17 at 16:00; Stop 01/09/17 at 16:01; Status DC Warfarin Sodium (Coumadin) 4 mg 1X WARF ONCE PO Last administered on 17:57; Start 01/10/17 at 16:00; Stop 01/10/17 at 16:01; Status DC Divalproex Sodium (Depakote Er) 500 mg QHS PO Last administered on 01/13/17 20 :08; Start 01/11/17 at 21:00; Stop 01/14/17 at 19:17; Status DC Warfarin Sodium (Coumadin) 4 mg 1X WARF ONCE PO Last administered on 16:35; Start 01/11/17 at 16:00; Stop 01/12/17 at 12:09; Status DC Pantoprazole Sodium (Protonix) 40 mg DAILYAC PO Last administered on 11:40; Start 01/12/17 at 10:30 Vitamin D (Vitamin D3) 50,000 unit WEEKLY PO Last administered on 01/19/17 09 :41; Start 01/12/17 at 10:30 Ferrous Sulfate (Feosol) 325 mg DAILYWBKFT PO Last administered on 01/25/17 11:41; Start 01/13/17 at 08:00 Warfarin Sodium (Coumadin - No Dose Today) 1 each 1X WARF ONCE MC ; Start 01/12 at 16:00; Stop 01/12/17 at 16:00; Status DC Warfarin Sodium (Coumadin Per Pharmacy) 1 each PRN DAILY PRN MC SEE COMMENTS Last administered on 01/13/17 14:02; Start 01/13/17 at 13:45; Stop 01/15/17 at 17:06; Status DC Warfarin Sodium (Coumadin) 4 mg DAILY16 PO Last administered on 01/14/17 17:43 ; Start 01/13/17 at 16:00; Stop 01/15/17 at 17:06; Status DC Divalproex Sodium (Depakote Er) 750 mg QHS PO Last administered on 01/17/17 19:42; Start 01/14/17 at 21:00; Stop 01/18/17 at 10:53; Status DC Warfarin Sodium (Coumadin) 3 mg 1X WARF ONCE PO Last administered on 16:53; Start 01/16/17 at 16:00; Stop 01/16/17 at 16:01; Status DC Warfarin Sodium (Coumadin Per Physician) 1 each PRN DAILY PRN MC SEE COMMENTS; Start 01/15/17 at 17:15; Stop 01/20/17 at 14:49; Status DC Warfarin Sodium (Coumadin) 3 mg 1X ONCE PO Last administered on 01/17/17 17: 28; Start 01/17/17 at 17:00; Stop 01/17/17 at 17:01; Status DC Warfarin Sodium (Coumadin) 3 mg 1X ONCE PO Last administered on 01/18/17 16: 56; Start 01/18/17 at 16:00; Stop 01/18/17 at 16:01; Status DC Sertraline HCl (Zoloft) 75 mg DAILY PO Last administered on 01/25/17 11:41; Start 01/18/17 at 09:00 Divalproex Sodium (Depakote Er) 1,000 mg QHS PO Last administered on 19:41; Start 01/19/17 at 21:00; Stop 01/23/17 at 18:39; Status DC Warfarin Sodium (Coumadin) 3 mg 1X WARF ONCE PO Last administered on 17:10; Start 01/19/17 at 16:00; Stop 01/19/17 at 16:01; Status DC Warfarin Sodium (Coumadin) 2.5 mg DAILY16 PO Last administered on 01/20/17 17 :45; Start 01/20/17 at 16:00; Stop 01/21/17 at 08:28; Status DC Warfarin Sodium (Coumadin) 1 mg DAILY16 PO Last administered on 01/20/17 17: 44; Start 01/20/17 at 16:00; Stop 01/21/17 at 08:29; Status DC Warfarin Sodium (Coumadin Per Pharmacy) 1 each PRN DAILY PRN MC SEE COMMENTS Last administered on 01/25/17 13:33; Start 01/20/17 at 14:45 Warfarin Sodium (Coumadin) 4 mg 1X WARF ONCE PO Last administered on 17:03; Start 01/21/17 at 16:00; Stop 01/21/17 at 16:01; Status DC Warfarin Sodium (Coumadin) 2.5 mg 1X WARF ONCE PO Last administered on 17:15; Start 01/22/17 at 16:00; Stop 01/22/17 at 16:01; Status DC Warfarin Sodium (Coumadin) 1 mg 1X WARF ONCE PO Last administered on 17:15; Start 01/22/17 at 16:00; Stop 01/22/17 at 16:01; Status DC Warfarin Sodium (Coumadin) 3 mg 1X WARF ONCE PO Last administered on 16:27; Start 01/23/17 at 16:00; Stop 01/23/17 at 16:01; Status DC Divalproex Sodium (Depakote Er) 1,500 mg QHS PO Last administered on 19:44; Start 01/23/17 at 21:00 Warfarin Sodium (Coumadin) 1 mg 1X WARF ONCE PO Last administered on 16:48; Start 01/24/17 at 16:00; Stop 01/24/17 at 16:01; Status DC Warfarin Sodium (Coumadin) 2.5 mg 1X WARF ONCE PO Last administered on 16:47; Start 01/24/17 at 16:00; Stop 01/24/17 at 16:01; Status DC Warfarin Sodium (Coumadin) 2.5 mg DAILY16 PO Last administered on 01/25/17 17 :27; Start 01/25/17 at 16:00 Warfarin Sodium (Coumadin) 1 mg DAILY16 PO Last administered on 01/25/17 17: 21; Start 01/25/17 at 16:00 Furosemide (Lasix) 40 mg 1X ONCE PO ; Start 01/26/17 at 09:00; Stop 01/26/17 at 09:01 Active Scripts Active Reported Zoloft (Sertraline Hcl) 50 Mg Tablet 50 Mg PO DAILY Prosource Plus Liquid Packet (Amino Ac/Protein Hydr/Whey Pro) 30 Ml Liquid.pkt 30 Ml PO DAILY Dulcolax (Bisacodyl) 10 Mg Supp.rect 10 Mg RC PRN DAILY PRN Silvadene (Silver Sulfadiazine) 20 Gm Cream..g. 1 Sapphire TP BID NITROGLYCERIN SubLingual (Nitroglycerin) 0.4 Mg Tab.subl 0.4 Mg SL PRN Q5MIN PRN May repeat x3 doses Maalox Maximum Strength Susp (Mag Hydrox/Al Hydrox/Simeth) 355 Ml Oral.susp 10 Ml PO PRN Q2HR PRN Duoneb 0.5-3(2.5) Mg/3 Ml (Albuterol/Ipratropium) 3 Ml Ampul.neb 3 Ml NEB PRN TID PRN Milk Of Magnesia (Magnesium Hydroxide) 400 Mg/5 Ml Oral.susp 2,400 Mg PO PRN Q3DAYS PRN Tylenol (Acetaminophen) 325 Mg Tablet 650 Mg PO PRN Q4HRS PRN Coumadin (Warfarin Sodium) 5 Mg Tablet 5 Mg PO DAILY16 Multivitamins (Multivitamin) 1 Each Tablet 1 Tab PO DAILY Flomax (Tamsulosin Hcl) 0.4 Mg Cap.er.24h 0.4 Mg PO DAILY Methyldopa 250 Mg Tablet 500 Mg PO BID Hold for SBP <110 or pulse < 55 Mirtazapine 30 Mg Tablet 30 Mg PO QHS Finasteride 5 Mg Tablet 5 Mg PO DAILY Allopurinol 100 Mg Tablet 100 Mg PO DAILY Ascorbic Acid 500 Mg Tablet 500 Mg PO BID Colestipol Hcl 5 Gm Packet 5 Gm PO BID Risperidone 1 Mg Tablet 1 Mg PO BID Diagnosis: Problems: (1) Aggressive behavior (2) Bipolar affective, mixed, sev w/ psych (3) Anxiety disorder (4) Dementia, vascular, with delusions (5) Dementia, vascular, with depression (6) Mild cognitive disorder (7) Major depressive disorder, recurrent episode (8) Psychotic depression (9) Impulse control disorder DIANE KABA MD Jan 25, 2017 20:45
--- NOTE | 2017-01-26 03:27 | PN ---
DATE: 01/24/2017 PSYCHIATRIC PROGRESS NOTE This is a late entry for 01/24/2017, covers the elements not covered in my initial note of 01/24/2017. SUBJECTIVE: I met with the patient in the evening of 01/24/2017. The patient remains "snarky" per nursing report, but redirects. He has been irritable, still depressed, withdrawn at times, verbal responses monosyllabic. REVIEW OF SYSTEMS: Ambulation impaired. Wheelchair. No CV, , pulmonary, eye, ENT system symptoms on review. MENTAL STATUS EXAM: Oriented to himself and situation. Speech is coherent, has some latency, often responses monosyllabic, abstraction fair, computation impaired, language function intact, attention span short, mood and affect withdrawn, irritable, labile. LABORATORY DATA: Reviewed. IMPRESSION: Unchanged from initial note. PLAN: Continue current psychotropics, reviewed drug interactions, risk/benefit ratio favors no further change. DIANE KABA MD DR: LAURY/rosalva JOB#: [id number] / [id number]
[2017-01-26 05:39] VITALS: BP 184/72
[2017-01-26 07:38] LABS: BASO # 0.1 x10^3/uL (0.0-0.2); BASO % 1 % (0-3); EOS # 0.3 x10^3/uL (0.0-0.7); EOS % 4 % (0-3); HEMATOCRIT 23.7 % (39.0-53.0); HEMOGLOBIN 7.8 g/dL (13.0-17.5); LYMPH # 0.9 x10^3/uL (1.0-4.8); LYMPH % 14 % (24-48); MEAN CORPUSCULAR HEMOGLOBIN 31 pg (25-35); MEAN CORPUSCULAR HGB CONC 33 g/dL (31-37); MEAN CORPUSCULAR VOLUME 94 fL (79-100); MONO # 0.6 x10^3/uL (0.0-1.1); MONO % 9 % (0-9); NEUT # 4.8 x10^3uL (1.8-7.7); NEUT % 72 % (31-73); PLATELET COUNT 257 x10^3/uL (140-400); RED BLOOD COUNT 2.53 x10^6/uL (4.30-5.70); RED CELL DISTRIBUTION WIDTH 19.9 % (11.5-14.5); WHITE BLOOD COUNT 6.6 x10^3/uL (4.0-11.0)
[2017-01-26 07:58] LABS: ALBUMIN 2.5 g/dL (3.4-5.0); ALBUMIN/GLOBULIN RATIO 0.9 (1.0-1.7); ALK PHOS 52 U/L (46-116); ALT (SGPT) 16 U/L (16-63); ANION GAP 8 (6-14); AST (SGOT) 18 U/L (15-37); BLOOD UREA NITROGEN 57 mg/dL (8-26); BUN/CREATININE RATIO 26 (6-20); CALCIUM 8.3 mg/dL (8.5-10.1); CARBON DIOXIDE 24 mmol/L (21-32); CHLORIDE 110 mmol/L (98-107); CREATININE 2.2 mg/dL (0.7-1.3); GFR 28.5; GLUCOSE 80 mg/dL (70-99); POTASSIUM 5.6 mmol/L (3.5-5.1); SODIUM 142 mmol/L (136-145); TOTAL BILIRUBIN 0.3 mg/dL (0.2-1.0); TOTAL PROTEIN 5.3 g/dL (6.4-8.2)
[2017-01-26 07:59] LABS: VAL ACID 45 mcg/mL (50-100)
[2017-01-26] MEDS ORDERED: FUROSEMIDE 40 MG TABLET PO ONE (09:00)
[2017-01-26] MEDS: FINASTERIDE 5 MG TABLET PO SCH (09:51)
[2017-01-26] MEDS: risperiDONE 1 MG TABLET. PO SCH ×2 (09:52→19:23)
[2017-01-26] MEDS: ALLOPURINOL 100 MG TABLET. PO SCH (09:52)
[2017-01-26] MEDS: ASCORBIC ACID 500 MG TABLET PO SCH ×2 (09:54→19:22)
[2017-01-26] MEDS: FERROUS SULFATE 325 MG TABLET. PO SCH (09:54)
[2017-01-26] MEDS: TAMSULOSIN 0.4 MG CAP.ER.24H. PO SCH (09:54)
[2017-01-26] MEDS: CHOLECALCIFEROL (VITAMIN D3) 50,000 UNIT CAPSULE PO SCH (09:54)
[2017-01-26] MEDS: MULTIVITAMIN with MINERAL TABLET. PO SCH (09:54)
[2017-01-26] MEDS: SERTRALINE 50 MG TABLET. PO SCH (09:54)
[2017-01-26] MEDS: PANTOPRAZOLE 40 MG TABLET. PO SCH (09:54)
[2017-01-26] MEDS: LEVOTHYROXINE 25 MCG TABLET. PO SCH (09:54)
[2017-01-26] MEDS: METHYLDOPA 250 MG TABLET PO SCH ×2 (10:07→19:24)
[2017-01-26] MEDS: COLESTIPOL HCL 1 GM TABLET PO SCH ×3 (10:07→21:00)
[2017-01-26] MEDS: FUROSEMIDE 40 MG TABLET PO SCH (10:30)
--- NOTE | 2017-01-26 11:27 | RAD ---
Portable AP view CXR: Clinical indications: Fluid retention. 10 pound weight gain. History of CHF. Comparison: None available. Findings: The patient is rotated towards the right side. No acute lung infiltrate or pulmonary edema or lung mass or pneumothorax is seen. There is mild blunting of the right lateral costophrenic angle which could be due to rotation or small pleural effusion. The heart size is accentuated which may be due to AP magnification and rotation. Heart size is difficult to evaluate therefore. The mediastinum is difficult to evaluate as well. 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 The pulmonary vasculature and both bettina are unremarkable otherwise. Impression: No acute lung infiltrate. Possible small right-sided pleural effusion..
[2017-01-26 16:25] VITALS: BP 194/86
[2017-01-26] MEDS: WARFARIN 2.5 MG TABLET. PO SCH (16:46)
[2017-01-26] MEDS: WARFARIN 1 MG TABLET. PO SCH (16:46)
[2017-01-26] MEDS: hydrALAZINE 25 MG TABLET PO SCH ×2 (17:20→19:25)
[2017-01-26] MEDS: MIRTAZAPINE 30 MG TABLET PO SCH (19:22)
[2017-01-26] MEDS: DIVALPROEX ER 500 MG TAB.ER.24H PO SCH (19:22)
[2017-01-26 19:26] VITALS: BP 162/69
--- NOTE | 2017-01-26 20:46 | PDOC ---
Exam Gonzales Demential Exam: Gonzales Note: Please also refer to the separate dictated note~for this date of service dictated separately.~Patient seen individually. Discussed the patient with Nursing staff reviewed the chart.~Reviewed interim history and current functioning. Reviewed vital signs,~Labs/ Radiology~and current medications noted below. Continue current treatment with the changes noted in the dictated addendum note Assessment: Vital Signs: Vital Signs Date Time Temp Pulse Resp B/P (MAP) Pulse Ox O2 Delivery O2 Flow Rate FiO2 01/26/17 19:26 76 162/69 (100) 01/26/17 16:25 97.6 20 96 01/22/17 16:03 Room Air I&O Intake and Output 01/27/17 07:00 Intake Total 0 ml Balance 0 ml Intake Oral 0 ml Labs: Laboratory Tests Test 01/26/17 07:16 White Blood Count 6.6 x10^3/uL (4.0-11.0) Red Blood Count 2.53 x10^6/uL (4.30-5.70) L Hemoglobin 7.8 g/dL (13.0-17.5) L Hematocrit 23.7 % (39.0-53.0) L Mean Corpuscular Volume 94 fL (79-100) Mean Corpuscular Hemoglobin 31 pg (25-35) Mean Corpuscular Hemoglobin Concent 33 g/dL (31-37) Red Cell Distribution Width 19.9 % (11.5-14.5) H Platelet Count 257 x10^3/uL (140-400) Neutrophils (%) (Auto) 72 % (31-73) Lymphocytes (%) (Auto) 14 % (24-48) L Monocytes (%) (Auto) 9 % (0-9) Eosinophils (%) (Auto) 4 % (0-3) H Basophils (%) (Auto) 1 % (0-3) Neutrophils # (Auto) 4.8 x10^3uL (1.8-7.7) Lymphocytes # (Auto) 0.9 x10^3/uL (1.0-4.8) L Monocytes # (Auto) 0.6 x10^3/uL (0.0-1.1) Eosinophils # (Auto) 0.3 x10^3/uL (0.0-0.7) Basophils # (Auto) 0.1 x10^3/uL (0.0-0.2) Sodium Level 142 mmol/L (136-145) Potassium Level 5.6 mmol/L (3.5-5.1) H Chloride Level 110 mmol/L (98-107) H Carbon Dioxide Level 24 mmol/L (21-32) Anion Gap 8 (6-14) Blood Urea Nitrogen 57 mg/dL (8-26) H Creatinine 2.2 mg/dL (0.7-1.3) H Estimated GFR (Cockcroft-Gault) 28.5 BUN/Creatinine Ratio 26 (6-20) H Glucose Level 80 mg/dL (70-99) Calcium Level 8.3 mg/dL (8.5-10.1) L Magnesium Level 1.9 mg/dL (1.8-2.4) Total Bilirubin 0.3 mg/dL (0.2-1.0) Aspartate Amino Transferase (AST) 18 U/L (15-37) Alanine Aminotransferase (ALT) 16 U/L (16-63) Alkaline Phosphatase 52 U/L (46-116) Total Protein 5.3 g/dL (6.4-8.2) L Albumin 2.5 g/dL (3.4-5.0) L Albumin/Globulin Ratio 0.9 (1.0-1.7) L Valproic Acid Level 45 mcg/mL (50-100) L Valproic Acid Last Dose Date 01/25/17 Valproic Acid Last Dose Time 2100 Current Medications: Meds: Current Medications Sodium Chloride 500 ml @ 0 mls/hr 1X ONCE IV Last administered on 01/06/17 09 :45; Start 01/06/17 at 09:30; Stop 01/06/17 at 09:55; Status DC Sodium Polystyrene Sulfonate (Kayexalate) 15 gm 1X ONCE PO Last administered on 01/06/17 10:40; Start 01/06/17 at 10:00; Stop 01/06/17 at 10:01; Status DC Influenza Virus Vaccine Quadrival (Fluarix Quad [id number] Syringe) 0.5 ml 1X ONCE VAX IM Last administered on 01/07/17 18:12; Start 01/07/17 at 09:00; Stop 01/07/17 at 09:01; Status DC Olanzapine (ZyPREXA ZYDIS) 2.5 mg PRN Q2HR PRN PO Agitation ; Start 01/06/17 at 12:30 Acetaminophen (Tylenol) 650 mg PRN Q4HRS PRN PO PAIN / TEMP; Start 01/06/17 at 12:45 Allopurinol (Zyloprim) 100 mg DAILY PO Last administered on 01/26/17 09:52; Start 01/07/17 at 09:00 Ascorbic Acid (Vitamin C) 500 mg BID PO Last administered on 01/26/17 19:22; Start 01/06/17 at 21:00 Bisacodyl (Dulcolax Supp) 10 mg PRN DAILY PRN RC CONSTIPATION; Start 01/06/17 at 12:45 Finasteride (Proscar) 5 mg DAILY PO Last administered on 01/26/17 09:51; Start 01/07/17 at 09:00 Albuterol/ Ipratropium (Duoneb) 3 ml PRN TID PRN NEB WHEEZING; Start 01/06/17 at 12:45 Al Hydroxide/Mg Hydroxide (Mylanta Plus Xs) 10 ml PRN Q2HR PRN PO INDIGESTION; Start 01/06/17 at 12:45 Magnesium Hydroxide (Milk Of Magnesia) 400 mg PRN QHS PRN PO CONSTIPATION; Start 01/06/17 at 12:45 Methyldopa (Aldomet) 500 mg BID PO Last administered on 01/26/17 19:24; Start 01/06/17 at 21:00 Nitroglycerin (Nitrostat) 0.4 mg PRN Q5MIN PRN SL CHEST PAIN; Start 01/06/17 at 12:45 Silver Sulfadiazine (Silvadene) 1 sapphire BID TP Last administered on 01/08/17 09: 51; Start 01/06/17 at 21:00; Stop 01/08/17 at 22:55; Status DC Tamsulosin HCl (Flomax) 0.4 mg DAILY PO Last administered on 01/26/17 09:54; Start 01/07/17 at 09:00 Warfarin Sodium (Coumadin) 5 mg DAILY16 PO ; Start 01/06/17 at 16:00; Stop 01/06 at 16:00; Status DC Non-Formulary Medication 30 ml DAILY PO ; Start 01/07/17 at 09:00; Stop at 09:00; Status DC Colestipol HCl (Colestid) 5 gm BID PO Last administered on 01/07/17 19:45; Start 01/06/17 at 21:00; Stop 01/08/17 at 08:58; Status DC Mirtazapine (Remeron) 30 mg QHS PO Last administered on 01/26/17 19:22; Start 01/06/17 at 21:00 Risperidone (RisperDAL) 1 mg BID PO Last administered on 01/26/17 19:23; Start 01/06/17 at 21:00 Sertraline HCl (Zoloft) 50 mg DAILY PO Last administered on 01/17/17 09:00; Start 01/07/17 at 09:00; Stop 01/17/17 at 18:54; Status DC Multivitamins/ Calcium (Thera-M Plus) 1 tab DAILY PO Last administered on 01/26 09:54; Start 01/07/17 at 09:00 Warfarin Sodium (Coumadin Per Pharmacy) 1 each PRN DAILY PRN MC SEE COMMENTS Last administered on 01/11/17 14:41; Start 01/07/17 at 11:00; Stop 01/12/17 at 12:09; Status DC Warfarin Sodium (Coumadin - No Dose Today) 1 each 1X WARF ONCE MC Last administered on 01/07/17 16:00; Start 01/07/17 at 16:00; Stop 01/07/17 at 16:01 ; Status DC Levothyroxine Sodium (Synthroid) 25 mcg DAILY07 PO Last administered on 09:54; Start 01/08/17 at 07:00 Divalproex Sodium (Depakote Er) 250 mg QHS PO Last administered on 01/10/17 20 :01; Start 01/07/17 at 21:00; Stop 01/11/17 at 10:17; Status DC Colestipol HCl (Colestid) 5 gm BID@0700,2100 PO Last administered on 19:26; Start 01/08/17 at 09:00 Warfarin Sodium (Coumadin) 5 mg 1X WARF ONCE PO Last administered on 17:31; Start 01/08/17 at 16:00; Stop 01/08/17 at 16:01; Status DC Warfarin Sodium (Coumadin) 5 mg 1X WARF ONCE PO Last administered on 17:09; Start 01/09/17 at 16:00; Stop 01/09/17 at 16:01; Status DC Warfarin Sodium (Coumadin) 4 mg 1X WARF ONCE PO Last administered on 17:57; Start 01/10/17 at 16:00; Stop 01/10/17 at 16:01; Status DC Divalproex Sodium (Depakote Er) 500 mg QHS PO Last administered on 01/13/17 20 :08; Start 01/11/17 at 21:00; Stop 01/14/17 at 19:17; Status DC Warfarin Sodium (Coumadin) 4 mg 1X WARF ONCE PO Last administered on 16:35; Start 01/11/17 at 16:00; Stop 01/12/17 at 12:09; Status DC Pantoprazole Sodium (Protonix) 40 mg DAILYAC PO Last administered on 09:54; Start 01/12/17 at 10:30 Vitamin D (Vitamin D3) 50,000 unit WEEKLY PO Last administered on 01/26/17 09 :54; Start 01/12/17 at 10:30 Ferrous Sulfate (Feosol) 325 mg DAILYWBKFT PO Last administered on 01/26/17 09:54; Start 01/13/17 at 08:00 Warfarin Sodium (Coumadin - No Dose Today) 1 each 1X WARF ONCE MC ; Start 01/12 at 16:00; Stop 01/12/17 at 16:00; Status DC Warfarin Sodium (Coumadin Per Pharmacy) 1 each PRN DAILY PRN MC SEE COMMENTS Last administered on 01/13/17 14:02; Start 01/13/17 at 13:45; Stop 01/15/17 at 17:06; Status DC Warfarin Sodium (Coumadin) 4 mg DAILY16 PO Last administered on 01/14/17 17:43 ; Start 01/13/17 at 16:00; Stop 01/15/17 at 17:06; Status DC Divalproex Sodium (Depakote Er) 750 mg QHS PO Last administered on 01/17/17 19:42; Start 01/14/17 at 21:00; Stop 01/18/17 at 10:53; Status DC Warfarin Sodium (Coumadin) 3 mg 1X WARF ONCE PO Last administered on 16:53; Start 01/16/17 at 16:00; Stop 01/16/17 at 16:01; Status DC Warfarin Sodium (Coumadin Per Physician) 1 each PRN DAILY PRN MC SEE COMMENTS; Start 01/15/17 at 17:15; Stop 01/20/17 at 14:49; Status DC Warfarin Sodium (Coumadin) 3 mg 1X ONCE PO Last administered on 01/17/17 17: 28; Start 01/17/17 at 17:00; Stop 01/17/17 at 17:01; Status DC Warfarin Sodium (Coumadin) 3 mg 1X ONCE PO Last administered on 01/18/17 16: 56; Start 01/18/17 at 16:00; Stop 01/18/17 at 16:01; Status DC Sertraline HCl (Zoloft) 75 mg DAILY PO Last administered on 01/26/17 09:54; Start 01/18/17 at 09:00 Divalproex Sodium (Depakote Er) 1,000 mg QHS PO Last administered on 19:41; Start 01/19/17 at 21:00; Stop 01/23/17 at 18:39; Status DC Warfarin Sodium (Coumadin) 3 mg 1X WARF ONCE PO Last administered on 17:10; Start 01/19/17 at 16:00; Stop 01/19/17 at 16:01; Status DC Warfarin Sodium (Coumadin) 2.5 mg DAILY16 PO Last administered on 01/20/17 17 :45; Start 01/20/17 at 16:00; Stop 01/21/17 at 08:28; Status DC Warfarin Sodium (Coumadin) 1 mg DAILY16 PO Last administered on 01/20/17 17: 44; Start 01/20/17 at 16:00; Stop 01/21/17 at 08:29; Status DC Warfarin Sodium (Coumadin Per Pharmacy) 1 each PRN DAILY PRN MC SEE COMMENTS Last administered on 01/25/17 13:33; Start 01/20/17 at 14:45 Warfarin Sodium (Coumadin) 4 mg 1X WARF ONCE PO Last administered on 17:03; Start 01/21/17 at 16:00; Stop 01/21/17 at 16:01; Status DC Warfarin Sodium (Coumadin) 2.5 mg 1X WARF ONCE PO Last administered on 17:15; Start 01/22/17 at 16:00; Stop 01/22/17 at 16:01; Status DC Warfarin Sodium (Coumadin) 1 mg 1X WARF ONCE PO Last administered on 17:15; Start 01/22/17 at 16:00; Stop 01/22/17 at 16:01; Status DC Warfarin Sodium (Coumadin) 3 mg 1X WARF ONCE PO Last administered on 16:27; Start 01/23/17 at 16:00; Stop 01/23/17 at 16:01; Status DC Divalproex Sodium (Depakote Er) 1,500 mg QHS PO Last administered on 19:22; Start 01/23/17 at 21:00 Warfarin Sodium (Coumadin) 1 mg 1X WARF ONCE PO Last administered on 16:48; Start 01/24/17 at 16:00; Stop 01/24/17 at 16:01; Status DC Warfarin Sodium (Coumadin) 2.5 mg 1X WARF ONCE PO Last administered on 16:47; Start 01/24/17 at 16:00; Stop 01/24/17 at 16:01; Status DC Warfarin Sodium (Coumadin) 2.5 mg DAILY16 PO Last administered on 01/26/17 16 :46; Start 01/25/17 at 16:00 Warfarin Sodium (Coumadin) 1 mg DAILY16 PO Last administered on 01/26/17 16: 46; Start 01/25/17 at 16:00 Furosemide (Lasix) 40 mg 1X ONCE PO Last administered on 01/26/17 10:07; Start 01/26/17 at 09:00; Stop 01/26/17 at 09:01; Status DC Furosemide (Lasix) 40 mg DAILY PO ; Start 01/26/17 at 10:30 Hydralazine HCl (Apresoline) 25 mg TID PO Last administered on 01/26/17 19:25 ; Start 01/26/17 at 17:00 Active Scripts Active Reported Zoloft (Sertraline Hcl) 50 Mg Tablet 50 Mg PO DAILY Prosource Plus Liquid Packet (Amino Ac/Protein Hydr/Whey Pro) 30 Ml Liquid.pkt 30 Ml PO DAILY Dulcolax (Bisacodyl) 10 Mg Supp.rect 10 Mg RC PRN DAILY PRN Silvadene (Silver Sulfadiazine) 20 Gm Cream..g. 1 Sapphire TP BID NITROGLYCERIN SubLingual (Nitroglycerin) 0.4 Mg Tab.subl 0.4 Mg SL PRN Q5MIN PRN May repeat x3 doses Maalox Maximum Strength Susp (Mag Hydrox/Al Hydrox/Simeth) 355 Ml Oral.susp 10 Ml PO PRN Q2HR PRN Duoneb 0.5-3(2.5) Mg/3 Ml (Albuterol/Ipratropium) 3 Ml Ampul.neb 3 Ml NEB PRN TID PRN Milk Of Magnesia (Magnesium Hydroxide) 400 Mg/5 Ml Oral.susp 2,400 Mg PO PRN Q3DAYS PRN Tylenol (Acetaminophen) 325 Mg Tablet 650 Mg PO PRN Q4HRS PRN Coumadin (Warfarin Sodium) 5 Mg Tablet 5 Mg PO DAILY16 Multivitamins (Multivitamin) 1 Each Tablet 1 Tab PO DAILY Flomax (Tamsulosin Hcl) 0.4 Mg Cap.er.24h 0.4 Mg PO DAILY Methyldopa 250 Mg Tablet 500 Mg PO BID Hold for SBP <110 or pulse < 55 Mirtazapine 30 Mg Tablet 30 Mg PO QHS Finasteride 5 Mg Tablet 5 Mg PO DAILY Allopurinol 100 Mg Tablet 100 Mg PO DAILY Ascorbic Acid 500 Mg Tablet 500 Mg PO BID Colestipol Hcl 5 Gm Packet 5 Gm PO BID Risperidone 1 Mg Tablet 1 Mg PO BID Diagnosis: Problems: (1) Aggressive behavior (2) Bipolar affective, mixed, sev w/ psych (3) Anxiety disorder (4) Dementia, vascular, with delusions (5) Dementia, vascular, with depression (6) Mild cognitive disorder (7) Major depressive disorder, recurrent episode (8) Psychotic depression (9) Impulse control disorder DIANE KABA MD Jan 26, 2017 20:46
--- NOTE | 2017-01-27 01:41 | PN ---
DATE: 01/25/2017 This late entry 01/25/2017 covers elements not covered in my initial note of 01/25/2017. SUBJECTIVE: I met with the patient evening of 01/25/2017. The patient was staffed at treatment team meeting morning of 01/25/2017. Reviewed the patient's history, diagnosis, progress, on going irritability, agitation. REVIEW OF SYSTEMS: Ambulation impaired, in a wheelchair. No CV, , pulmonary, eye system symptoms on review. MENTAL STATUS EXAM: Oriented to himself at times and situation. Speech often responses monosyllabic, rather short, mario, irritable at times. Abstraction fair, computation impaired, language function intact. Memory is impaired. No active suicidal or homicidal ideation. IMPRESSION: Unchanged from initial note. PLAN: Continue current psychotropics, valproic acid, CBC, CMP will be checked 01/26/2017 in the morning. We will adjust Depakote thereafter. Risk/benefit ratio favors no further change at this time. Reviewed drug interactions. MAN Isaías KABA MD DR: LAURY/rosalva JOB#: [id number] / [id number]
--- NOTE | 2017-01-27 03:10 | PN ---
DATE: 01/26/2017 REASON FOR VISIT: Increasing edema and weight gain. SUBJECTIVE: This is an 86-year-old male who has been on the [facility] since 01/06/2017 where he was admitted from [facility] for increasingly aggressiveness and combativeness and inappropriateness. He does not carry a diagnosis of dementia. He has multiple chronic medical problems including chronic kidney disease, normochromic normocytic anemia which has required transfusions in the past, long-term use of anticoagulants, a DVT in his believe the right arm from a PICC line. Staff reports increasing edema of the arms and legs and about a 10-pound weight gain. OBJECTIVE: VITAL SIGNS: Blood pressure 184/72, pulse 64, respirations 18, pulse ox 100% on room air, temperature 97.8, height is 67 inches, weight 154.9 pounds. GENERAL: The patient was examined in his bed. He woke up. He was appropriate. HEENT: His tongue was moist. NECK: Supple. LUNGS: Essentially clear, may be a few crackles. CARDIOVASCULAR: Regular rhythm and rate. ABDOMEN: Soft, nontender. EXTREMITIES: Left arm with a lot of pitting edema and right arm with edema as well and lower legs with edema also. Chest x-ray shows no lung infiltrates, possibly a small right-sided pleural effusion, but no pulmonary edema. The patient states that his doctor from [facility] prescribes Lasix as needed for him. LABORATORY DATA: His hemoglobin is 7.8, hematocrit 23.7, BUN is 57, creatinine is 2.2. ASSESSMENT: 1. Chronic kidney disease stage III. This has not changed much since his hospitalization. 2. Normochromic normocytic anemia. 3. Hyperkalemia with potassium of 5.6. 4. Severe hypoalbuminemia. PLAN: Lasix 40 mg a day, close monitoring of his kidney function. He is on Pro-Stat and supplements for the low albumin. DESTINEE CABRALES DO DR: JAKE/rosalva JOB#: [id number] / [id number]
[2017-01-27 05:50] VITALS: BP 193/75
[2017-01-27] MEDS: LEVOTHYROXINE 25 MCG TABLET. PO SCH ×2 (06:10→07:50)
[2017-01-27 06:20] LABS: ALBUMIN 2.5 g/dL (3.4-5.0); ALBUMIN/GLOBULIN RATIO 0.9 (1.0-1.7); CALCIUM 8.5 mg/dL (8.5-10.1); CREATININE 2.1 mg/dL (0.7-1.3); GFR 30.1; POTASSIUM 5.6 mmol/L (3.5-5.1); TOTAL BILIRUBIN 0.3 mg/dL (0.2-1.0); TOTAL PROTEIN 5.3 g/dL (6.4-8.2)
[2017-01-27] MEDS: COLESTIPOL HCL 1 GM TABLET PO SCH ×2 (07:00→19:45)
[2017-01-27] MEDS: PANTOPRAZOLE 40 MG TABLET. PO SCH (07:50)
[2017-01-27] MEDS: SERTRALINE 50 MG TABLET. PO SCH (07:51)
[2017-01-27] MEDS: ASCORBIC ACID 500 MG TABLET PO SCH ×2 (07:51→19:32)
[2017-01-27] MEDS: hydrALAZINE 25 MG TABLET PO SCH ×3 (07:51→19:33)
[2017-01-27] MEDS: FINASTERIDE 5 MG TABLET PO SCH (07:51)
[2017-01-27] MEDS: METHYLDOPA 250 MG TABLET PO SCH ×2 (07:51→19:35)
[2017-01-27] MEDS: FUROSEMIDE 40 MG TABLET PO SCH (07:52)
[2017-01-27] MEDS: risperiDONE 1 MG TABLET. PO SCH ×2 (07:52→19:33)
[2017-01-27] MEDS: ALLOPURINOL 100 MG TABLET. PO SCH (07:52)
[2017-01-27] MEDS: TAMSULOSIN 0.4 MG CAP.ER.24H. PO SCH (07:53)
[2017-01-27] MEDS: MULTIVITAMIN with MINERAL TABLET. PO SCH (07:53)
[2017-01-27] MEDS: FERROUS SULFATE 325 MG TABLET. PO SCH (07:53)
--- NOTE | 2017-01-27 14:14 | PN ---
DATE: 01/26/2017 This note covers elements not covered in my initial of 01/26/2017. SUBJECTIVE: The patient was seen individually evening of 01/26/2017. At times, he is less irritable, but still very short and abrasive, monosyllabic in his verbal responses. Blood pressure was increased. Hydralazine has been adjusted. I will defer to Dr. Encarnacion. REVIEW OF SYSTEMS: Ambulation impaired, in a wheelchair. No CV, , pulmonary, eye, ENT system symptoms on review. MENTAL STATUS EXAM: Oriented to himself and situation. Speech, moderate latency, often responses monosyllabic. Abstraction fair, computation impaired, language function intact, attention span short. Mood and affect somewhat withdrawn, labile at times. LABORATORY DATA: Reviewed. IMPRESSION: Unchanged from initial note. PLAN: Continue current psychotropics as mentioned in my initial note. Reviewed drug interactions, risk/benefit ratio favors no further change. MAN Isaías KABA MD DR: LAURY/rosalva JOB#: [id number] / [id number]
[2017-01-27 16:06] VITALS: BP 162/92
[2017-01-27] MEDS: WARFARIN 1 MG TABLET. PO SCH (18:07)
[2017-01-27] MEDS: WARFARIN 2.5 MG TABLET. PO SCH (18:07)
[2017-01-27] MEDS: DIVALPROEX ER 500 MG TAB.ER.24H PO SCH (19:32)
[2017-01-27] MEDS: MIRTAZAPINE 30 MG TABLET PO SCH (19:32)
--- NOTE | 2017-01-27 21:48 | PDOC ---
Exam Gonzales Demential Exam: Gonzales Note: Please also refer to the separate dictated note~for this date of service dictated separately.~Patient seen individually. Discussed the patient with Nursing staff reviewed the chart.~Reviewed interim history and current functioning. Reviewed vital signs,~Labs/ Radiology~and current medications noted below. Continue current treatment with the changes noted in the dictated addendum note Assessment: Vital Signs: Vital Signs Date Time Temp Pulse Resp B/P (MAP) Pulse Ox O2 Delivery O2 Flow Rate FiO2 01/27/17 19:35 58 162/92 01/27/17 16:06 97.7 18 97 01/27/17 05:50 Room Air I&O Intake and Output 01/28/17 07:00 Intake Total 960 ml Balance 960 ml Intake Oral 960 ml # Bowel Movements 1 Labs: Laboratory Tests Test 01/27/17 05:53 Sodium Level 141 mmol/L (136-145) Potassium Level 5.6 mmol/L (3.5-5.1) H Chloride Level 110 mmol/L (98-107) H Carbon Dioxide Level 24 mmol/L (21-32) Anion Gap 7 (6-14) Blood Urea Nitrogen 59 mg/dL (8-26) H Creatinine 2.1 mg/dL (0.7-1.3) H Estimated GFR (Cockcroft-Gault) 30.1 BUN/Creatinine Ratio 28 (6-20) H Glucose Level 80 mg/dL (70-99) Calcium Level 8.5 mg/dL (8.5-10.1) Total Bilirubin 0.3 mg/dL (0.2-1.0) Aspartate Amino Transferase (AST) 17 U/L (15-37) Alanine Aminotransferase (ALT) 15 U/L (16-63) L Alkaline Phosphatase 57 U/L (46-116) Total Protein 5.3 g/dL (6.4-8.2) L Albumin 2.5 g/dL (3.4-5.0) L Albumin/Globulin Ratio 0.9 (1.0-1.7) L Current Medications: Meds: Current Medications Sodium Chloride 500 ml @ 0 mls/hr 1X ONCE IV Last administered on 01/06/17t 09 :45; Start 01/06/17 at 09:30; Stop 01/06/17 at 09:55; Status DC Sodium Polystyrene Sulfonate (Kayexalate) 15 gm 1X ONCE PO Last administered on 01/06/17 10:40; Start 01/06/17 at 10:00; Stop 01/06/17 at 10:01; Status DC Influenza Virus Vaccine Quadrival (Fluarix Quad 9006-9208 Syringe) 0.5 ml 1X ONCE VAX IM Last administered on 01/07/17 18:12; Start 01/07/17 at 09:00; Stop 01/07/17 at 09:01; Status DC Olanzapine (ZyPREXA ZYDIS) 2.5 mg PRN Q2HR PRN PO Agitation ; Start 01/06/17 at 12:30 Acetaminophen (Tylenol) 650 mg PRN Q4HRS PRN PO PAIN / TEMP; Start 01/06/17 at 12:45 Allopurinol (Zyloprim) 100 mg DAILY PO Last administered on 01/27/17 07:52; Start 01/07/17 at 09:00 Ascorbic Acid (Vitamin C) 500 mg BID PO Last administered on 01/27/17 19:32; Start 01/06/17 at 21:00 Bisacodyl (Dulcolax Supp) 10 mg PRN DAILY PRN RC CONSTIPATION; Start 01/06/17 at 12:45 Finasteride (Proscar) 5 mg DAILY PO Last administered on 01/27/17 07:51; Start 01/07/17 at 09:00 Albuterol/ Ipratropium (Duoneb) 3 ml PRN TID PRN NEB WHEEZING; Start 01/06/17 at 12:45 Al Hydroxide/Mg Hydroxide (Mylanta Plus Xs) 10 ml PRN Q2HR PRN PO INDIGESTION; Start 01/06/17 at 12:45 Magnesium Hydroxide (Milk Of Magnesia) 400 mg PRN QHS PRN PO CONSTIPATION; Start 01/06/17 at 12:45 Methyldopa (Aldomet) 500 mg BID PO Last administered on 01/27/17 19:35; Start 01/06/17 at 21:00 Nitroglycerin (Nitrostat) 0.4 mg PRN Q5MIN PRN SL CHEST PAIN; Start 01/06/17 at 12:45 Silver Sulfadiazine (Silvadene) 1 sapphire BID TP Last administered on 01/08/17 09: 51; Start 01/06/17 at 21:00; Stop 01/08/17 at 22:55; Status DC Tamsulosin HCl (Flomax) 0.4 mg DAILY PO Last administered on 01/27/17 07:53; Start 01/07/17 at 09:00 Warfarin Sodium (Coumadin) 5 mg DAILY16 PO ; Start 01/06/17 at 16:00; Stop 01/06 at 16:00; Status DC Non-Formulary Medication 30 ml DAILY PO ; Start 01/07/17 at 09:00; Stop at 09:00; Status DC Colestipol HCl (Colestid) 5 gm BID PO Last administered on 01/07/17 19:45; Start 01/06/17 at 21:00; Stop 01/08/17 at 08:58; Status DC Mirtazapine (Remeron) 30 mg QHS PO Last administered on 01/27/17 19:32; Start 01/06/17 at 21:00 Risperidone (RisperDAL) 1 mg BID PO Last administered on 01/27/17 19:33; Start 01/06/17 at 21:00 Sertraline HCl (Zoloft) 50 mg DAILY PO Last administered on 01/17/17 09:00; Start 01/07/17 at 09:00; Stop 01/17/17 at 18:54; Status DC Multivitamins/ Calcium (Thera-M Plus) 1 tab DAILY PO Last administered on 01/27 07:53; Start 01/07/17 at 09:00 Warfarin Sodium (Coumadin Per Pharmacy) 1 each PRN DAILY PRN MC SEE COMMENTS Last administered on 01/11/17 14:41; Start 01/07/17 at 11:00; Stop 01/12/17 at 12:09; Status DC Warfarin Sodium (Coumadin - No Dose Today) 1 each 1X WARF ONCE MC Last administered on 01/07/17 16:00; Start 01/07/17 at 16:00; Stop 01/07/17 at 16:01 ; Status DC Levothyroxine Sodium (Synthroid) 25 mcg DAILY07 PO Last administered on 07:50; Start 01/08/17 at 07:00 Divalproex Sodium (Depakote Er) 250 mg QHS PO Last administered on 01/10/17 20 :01; Start 01/07/17 at 21:00; Stop 01/11/17 at 10:17; Status DC Colestipol HCl (Colestid) 5 gm BID@0700,2100 PO Last administered on 10:07; Start 01/08/17 at 09:00 Warfarin Sodium (Coumadin) 5 mg 1X WARF ONCE PO Last administered on 17:31; Start 01/08/17 at 16:00; Stop 01/08/17 at 16:01; Status DC Warfarin Sodium (Coumadin) 5 mg 1X WARF ONCE PO Last administered on 17:09; Start 01/09/17 at 16:00; Stop 01/09/17 at 16:01; Status DC Warfarin Sodium (Coumadin) 4 mg 1X WARF ONCE PO Last administered on 17:57; Start 01/10/17 at 16:00; Stop 01/10/17 at 16:01; Status DC Divalproex Sodium (Depakote Er) 500 mg QHS PO Last administered on 01/13/17 20 :08; Start 01/11/17 at 21:00; Stop 01/14/17 at 19:17; Status DC Warfarin Sodium (Coumadin) 4 mg 1X WARF ONCE PO Last administered on 16:35; Start 01/11/17 at 16:00; Stop 01/12/17 at 12:09; Status DC Pantoprazole Sodium (Protonix) 40 mg DAILYAC PO Last administered on 07:50; Start 01/12/17 at 10:30 Vitamin D (Vitamin D3) 50,000 unit WEEKLY PO Last administered on 01/26/17 09 :54; Start 01/12/17 at 10:30 Ferrous Sulfate (Feosol) 325 mg DAILYWBKFT PO Last administered on 01/27/17 07:53; Start 01/13/17 at 08:00 Warfarin Sodium (Coumadin - No Dose Today) 1 each 1X WARF ONCE MC ; Start 01/12 at 16:00; Stop 01/12/17 at 16:00; Status DC Warfarin Sodium (Coumadin Per Pharmacy) 1 each PRN DAILY PRN MC SEE COMMENTS Last administered on 01/13/17 14:02; Start 01/13/17 at 13:45; Stop 01/15/17 at 17:06; Status DC Warfarin Sodium (Coumadin) 4 mg DAILY16 PO Last administered on 01/14/17 17:43 ; Start 01/13/17 at 16:00; Stop 01/15/17 at 17:06; Status DC Divalproex Sodium (Depakote Er) 750 mg QHS PO Last administered on 01/17/17 19:42; Start 01/14/17 at 21:00; Stop 01/18/17 at 10:53; Status DC Warfarin Sodium (Coumadin) 3 mg 1X WARF ONCE PO Last administered on 16:53; Start 01/16/17 at 16:00; Stop 01/16/17 at 16:01; Status DC Warfarin Sodium (Coumadin Per Physician) 1 each PRN DAILY PRN MC SEE COMMENTS; Start 01/15/17 at 17:15; Stop 01/20/17 at 14:49; Status DC Warfarin Sodium (Coumadin) 3 mg 1X ONCE PO Last administered on 01/17/17 17: 28; Start 01/17/17 at 17:00; Stop 01/17/17 at 17:01; Status DC Warfarin Sodium (Coumadin) 3 mg 1X ONCE PO Last administered on 01/18/17 16: 56; Start 01/18/17 at 16:00; Stop 01/18/17 at 16:01; Status DC Sertraline HCl (Zoloft) 75 mg DAILY PO Last administered on 01/27/17 07:51; Start 01/18/17 at 09:00 Divalproex Sodium (Depakote Er) 1,000 mg QHS PO Last administered on 19:41; Start 01/19/17 at 21:00; Stop 01/23/17 at 18:39; Status DC Warfarin Sodium (Coumadin) 3 mg 1X WARF ONCE PO Last administered on 17:10; Start 01/19/17 at 16:00; Stop 01/19/17 at 16:01; Status DC Warfarin Sodium (Coumadin) 2.5 mg DAILY16 PO Last administered on 01/20/17 17 :45; Start 01/20/17 at 16:00; Stop 01/21/17 at 08:28; Status DC Warfarin Sodium (Coumadin) 1 mg DAILY16 PO Last administered on 01/20/17 17: 44; Start 01/20/17 at 16:00; Stop 01/21/17 at 08:29; Status DC Warfarin Sodium (Coumadin Per Pharmacy) 1 each PRN DAILY PRN MC SEE COMMENTS Last administered on 01/25/17 13:33; Start 01/20/17 at 14:45 Warfarin Sodium (Coumadin) 4 mg 1X WARF ONCE PO Last administered on 17:03; Start 01/21/17 at 16:00; Stop 01/21/17 at 16:01; Status DC Warfarin Sodium (Coumadin) 2.5 mg 1X WARF ONCE PO Last administered on 17:15; Start 01/22/17 at 16:00; Stop 01/22/17 at 16:01; Status DC Warfarin Sodium (Coumadin) 1 mg 1X WARF ONCE PO Last administered on 17:15; Start 01/22/17 at 16:00; Stop 01/22/17 at 16:01; Status DC Warfarin Sodium (Coumadin) 3 mg 1X WARF ONCE PO Last administered on 16:27; Start 01/23/17 at 16:00; Stop 01/23/17 at 16:01; Status DC Divalproex Sodium (Depakote Er) 1,500 mg QHS PO Last administered on 19:32; Start 01/23/17 at 21:00 Warfarin Sodium (Coumadin) 1 mg 1X WARF ONCE PO Last administered on 16:48; Start 01/24/17 at 16:00; Stop 01/24/17 at 16:01; Status DC Warfarin Sodium (Coumadin) 2.5 mg 1X WARF ONCE PO Last administered on 16:47; Start 01/24/17 at 16:00; Stop 01/24/17 at 16:01; Status DC Warfarin Sodium (Coumadin) 2.5 mg DAILY16 PO Last administered on 01/27/17 18 :07; Start 01/25/17 at 16:00 Warfarin Sodium (Coumadin) 1 mg DAILY16 PO Last administered on 01/27/17 18: 07; Start 01/25/17 at 16:00 Furosemide (Lasix) 40 mg 1X ONCE PO Last administered on 01/26/17 10:07; Start 01/26/17 at 09:00; Stop 01/26/17 at 09:01; Status DC Furosemide (Lasix) 40 mg DAILY PO Last administered on 01/27/17 07:52; Start 01/26/17 at 10:30 Hydralazine HCl (Apresoline) 25 mg TID PO Last administered on 01/27/17 19:33 ; Start 01/26/17 at 17:00 Active Scripts Active Reported Zoloft (Sertraline Hcl) 50 Mg Tablet 50 Mg PO DAILY Prosource Plus Liquid Packet (Amino Ac/Protein Hydr/Whey Pro) 30 Ml Liquid.pkt 30 Ml PO DAILY Dulcolax (Bisacodyl) 10 Mg Supp.rect 10 Mg RC PRN DAILY PRN Silvadene (Silver Sulfadiazine) 20 Gm Cream..g. 1 Sapphire TP BID NITROGLYCERIN SubLingual (Nitroglycerin) 0.4 Mg Tab.subl 0.4 Mg SL PRN Q5MIN PRN May repeat x3 doses Maalox Maximum Strength Susp (Mag Hydrox/Al Hydrox/Simeth) 355 Ml Oral.susp 10 Ml PO PRN Q2HR PRN Duoneb 0.5-3(2.5) Mg/3 Ml (Albuterol/Ipratropium) 3 Ml Ampul.neb 3 Ml NEB PRN TID PRN Milk Of Magnesia (Magnesium Hydroxide) 400 Mg/5 Ml Oral.susp 2,400 Mg PO PRN Q3DAYS PRN Tylenol (Acetaminophen) 325 Mg Tablet 650 Mg PO PRN Q4HRS PRN Coumadin (Warfarin Sodium) 5 Mg Tablet 5 Mg PO DAILY16 Multivitamins (Multivitamin) 1 Each Tablet 1 Tab PO DAILY Flomax (Tamsulosin Hcl) 0.4 Mg Cap.er.24h 0.4 Mg PO DAILY Methyldopa 250 Mg Tablet 500 Mg PO BID Hold for SBP <110 or pulse < 55 Mirtazapine 30 Mg Tablet 30 Mg PO QHS Finasteride 5 Mg Tablet 5 Mg PO DAILY Allopurinol 100 Mg Tablet 100 Mg PO DAILY Ascorbic Acid 500 Mg Tablet 500 Mg PO BID Colestipol Hcl 5 Gm Packet 5 Gm PO BID Risperidone 1 Mg Tablet 1 Mg PO BID Diagnosis: Problems: (1) Aggressive behavior (2) Chronic anemia (3) Bipolar affective, mixed, sev w/ psych (4) Anxiety disorder (5) Dementia, vascular, with delusions (6) Dementia, vascular, with depression (7) Mild cognitive disorder (8) Major depressive disorder, recurrent episode (9) Psychotic depression (10) Impulse control disorder DIANE KABA MD Jan 27, 2017 21:47
[2017-01-28] MEDS: LEVOTHYROXINE 25 MCG TABLET. PO SCH (05:35)
[2017-01-28] MEDS: COLESTIPOL HCL 1 GM TABLET PO SCH ×2 (05:38→19:19)
[2017-01-28 05:55] VITALS: BP 135/61
[2017-01-28] MEDS: FUROSEMIDE 40 MG TABLET PO SCH (08:10)
[2017-01-28] MEDS: SERTRALINE 50 MG TABLET. PO SCH (08:10)
[2017-01-28] MEDS: ASCORBIC ACID 500 MG TABLET PO SCH ×2 (08:11→19:19)
[2017-01-28] MEDS: FERROUS SULFATE 325 MG TABLET. PO SCH (08:11)
[2017-01-28] MEDS: MULTIVITAMIN with MINERAL TABLET. PO SCH (08:11)
[2017-01-28] MEDS: PANTOPRAZOLE 40 MG TABLET. PO SCH (08:11)
[2017-01-28] MEDS: TAMSULOSIN 0.4 MG CAP.ER.24H. PO SCH (08:11)
[2017-01-28] MEDS: ALLOPURINOL 100 MG TABLET. PO SCH (08:11)
[2017-01-28] MEDS: FINASTERIDE 5 MG TABLET PO SCH (08:11)
[2017-01-28] MEDS: hydrALAZINE 25 MG TABLET PO SCH ×3 (08:11→19:18)
[2017-01-28] MEDS: risperiDONE 1 MG TABLET. PO SCH ×2 (08:11→19:19)
[2017-01-28] MEDS: METHYLDOPA 250 MG TABLET PO SCH ×2 (08:13→19:18)
[2017-01-28 15:59] VITALS: BP 129/62
[2017-01-28] MEDS ORDERED: WARFARIN 3 MG TABLET. PO ONE (16:00)
[2017-01-28] MEDS: DIVALPROEX ER 500 MG TAB.ER.24H PO SCH (19:19)
[2017-01-28] MEDS: MIRTAZAPINE 30 MG TABLET PO SCH (19:19)
--- NOTE | 2017-01-28 23:45 | PN ---
DATE: 01/28/2017 REFERRING PHYSICIAN: Dr. De La Torre. SUBJECTIVE: The patient complains of pain of the left shoulder due to underlying arthritis. He also complains of swelling of the hand. He denies any new medical or neurological complaints. He eats and drinks well. Occasionally, the patient becomes more combative and aggressive and sometimes he refuses to take his medications. The patient ambulates with a wheelchair. OBJECTIVE: GENERAL: Well-developed, well-nourished male, not in acute distress. VITAL SIGNS: Blood pressure 135/61, respiratory rate 18, pulse is 68 and regular, temperature 98, oxygen saturation is 96% on room air. HEENT: Normocephalic, atraumatic, otherwise unremarkable. NECK: Supple. Negative for carotid bruit, lymphadenopathy or thyromegaly. LUNGS: Clear to A and P. CARDIOVASCULAR: Regular rhythm, normal S1, S2. There is no S3, S4 or murmur. ABDOMEN: Soft. Bowel sounds positive. EXTREMITIES: With swelling of the left arm, mainly the left hand edema, and edema of the lower extremities as well. NEUROLOGIC: The patient is alert to himself. The speech is fluent. There is no language dysfunction. Memory, judgment, and abstract thinkings are fair. He had a short-term memory loss. Cranial nerves appear to be intact. Motor examination revealed no focal muscle bulk was seen. The tone is normal. The strength is 4/5 throughout. Sensory Examination diminished pinprick and light touch senses in patchy distributions in both lower extremities. Deep tendon reflexes were symmetric and hypoactive with absent Achilles responses. Gait: The patient ambulates with a wheelchair. LABORATORY DATA: From 01/28/2017 revealed CBC, white blood cells of 6.6, hemoglobin is 7.8, hematocrit 23.7, platelet count 257. Chemistry revealed sodium of 141, potassium 5.6, chloride 110, CO2 24, BUN 59,creatinine 2.1 and glucose 80. Liver enzymes are low. Hand x-ray performed. Hand x-ray revealed no acute fracture or disorientation, otherwise findings consistent with osteoarthritis. IMPRESSION: 1. Chronic normocytic anemia. 2. Chronic renal failure with hypokalemia. 3. Multiple medical problems include benign prostate hypertrophy, anemia, deep venous thrombosis, hyperlipidemia, hypertension. RECOMMENDATIONS: Continue with current medical and psychiatric care. M Dania GARCIA MD DR: Tasha JOB#: [id number] / [id number]
[2017-01-29] MEDS: LEVOTHYROXINE 25 MCG TABLET. PO SCH (05:25)
[2017-01-29] MEDS: COLESTIPOL HCL 1 GM TABLET PO SCH ×2 (05:25→20:15)
[2017-01-29 06:02] VITALS: BP 168/63
[2017-01-29] MEDS: FINASTERIDE 5 MG TABLET PO SCH (08:28)
[2017-01-29] MEDS: PANTOPRAZOLE 40 MG TABLET. PO SCH (08:28)
[2017-01-29] MEDS: SERTRALINE 50 MG TABLET. PO SCH (08:29)
[2017-01-29] MEDS: TAMSULOSIN 0.4 MG CAP.ER.24H. PO SCH (08:29)
[2017-01-29] MEDS: FUROSEMIDE 40 MG TABLET PO SCH (08:29)
[2017-01-29] MEDS: ALLOPURINOL 100 MG TABLET. PO SCH (08:29)
[2017-01-29] MEDS: ASCORBIC ACID 500 MG TABLET PO SCH ×2 (08:29→20:15)
[2017-01-29] MEDS: hydrALAZINE 25 MG TABLET PO SCH ×3 (08:29→20:15)
[2017-01-29] MEDS: FERROUS SULFATE 325 MG TABLET. PO SCH (08:29)
[2017-01-29] MEDS: MULTIVITAMIN with MINERAL TABLET. PO SCH (08:29)
[2017-01-29] MEDS: risperiDONE 1 MG TABLET. PO SCH ×2 (08:29→20:15)
[2017-01-29] MEDS: METHYLDOPA 250 MG TABLET PO SCH ×2 (08:31→20:15)
--- NOTE | 2017-01-29 11:30 | PN ---
DATE: 01/27/2017 PSYCHIATRIC PROGRESS NOTE This note covers the elements not covered in my initial note of 01/27/2017. SUBJECTIVE: Per nursing report, the patient has been irritable at times and little more compliant at other times. I met with him in his room and he was in his wheelchair, somewhat demanding, labs reflective of increased BUN and creatinine, I will defer to Dr. Encarnacion. As I went through ____ coughing, bringing up some slight sputum ____ after that he was much more pleasant and appreciative. REVIEW OF SYSTEMS: No CV, , eye, ENT system symptoms on review. Does have some cough. Ambulation impaired. MENTAL STATUS EXAM: Oriented to himself and situation. Speech coherent, abstraction fair, computation impaired, language function intact. Mood and affect ____ is improved. LABORATORY DATA: Reviewed. IMPRESSION: Unchanged from initial note. PLAN: Continue current psychotropics, reviewed drug interactions, risk/benefit ratio favors no further change. DIANE KABA MD DR: LAURY/rosalva JOB#: [id number] / [id number]
[2017-01-29 16:07] VITALS: BP 156/87
[2017-01-29] MEDS: WARFARIN 3 MG TABLET. PO SCH (17:20)
[2017-01-29] MEDS: DIVALPROEX ER 500 MG TAB.ER.24H PO SCH (20:14)
[2017-01-29] MEDS: MIRTAZAPINE 30 MG TABLET PO SCH (20:15)
[2017-01-30] MEDS ORDERED: CHOL500050 PO (00:26)
[2017-01-30] MEDS ORDERED: FERR-26 PO (00:27)
[2017-01-30] MEDS ORDERED: DIVA500T17 PO (00:27)
[2017-01-30] MEDS ORDERED: FURO40TA4 PO (00:29)
[2017-01-30] MEDS ORDERED: LEVO25TA4 PO (00:29)
[2017-01-30] MEDS ORDERED: OLAN5TAB9 PO (00:31)
[2017-01-30] MEDS ORDERED: PANT40TA5 PO (00:32)
[2017-01-30] MEDS ORDERED: HYDR-2868 PO (00:35)
[2017-01-30] MEDS ORDERED: WARF1TAB74 PO (00:36)
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
[2017-01-30] MEDS: LEVOTHYROXINE 25 MCG TABLET. PO SCH ×2 (05:59→08:06)
[2017-01-30] MEDS: COLESTIPOL HCL 1 GM TABLET PO SCH ×5 (06:01→21:00)
[2017-01-30 06:29] VITALS: BP 129/62
[2017-01-30] MEDS: risperiDONE 1 MG TABLET. PO SCH ×2 (08:05→20:12)
[2017-01-30] MEDS: hydrALAZINE 25 MG TABLET PO SCH ×4 (08:05→20:12)
[2017-01-30] MEDS: FUROSEMIDE 40 MG TABLET PO SCH (08:05)
[2017-01-30] MEDS: SERTRALINE 50 MG TABLET. PO SCH (08:05)
[2017-01-30] MEDS: FERROUS SULFATE 325 MG TABLET. PO SCH (08:06)
[2017-01-30] MEDS: PANTOPRAZOLE 40 MG TABLET. PO SCH (08:06)
[2017-01-30] MEDS: TAMSULOSIN 0.4 MG CAP.ER.24H. PO SCH (08:06)
[2017-01-30] MEDS: MULTIVITAMIN with MINERAL TABLET. PO SCH (08:06)
[2017-01-30] MEDS: ASCORBIC ACID 500 MG TABLET PO SCH ×2 (08:06→20:11)
[2017-01-30] MEDS: ALLOPURINOL 100 MG TABLET. PO SCH (08:06)
[2017-01-30] MEDS: METHYLDOPA 250 MG TABLET PO SCH ×2 (08:07→20:12)
[2017-01-30] MEDS: FINASTERIDE 5 MG TABLET PO SCH (08:07)
[2017-01-30 15:25] VITALS: BP 143/60
[2017-01-30] MEDS: WARFARIN 3 MG TABLET. PO SCH ×2 (15:47→16:00)
[2017-01-30] MEDS: DIVALPROEX ER 500 MG TAB.ER.24H PO SCH (20:11)
[2017-01-30] MEDS: MIRTAZAPINE 30 MG TABLET PO SCH (20:12)
--- NOTE | 2017-01-31 03:09 | PN ---
DATE: 01/30/2017 SUBJECTIVE: The patient was seen today, met with the staff, chart reviewed. Staff reports that he had been staying in bed most of the time, not communicative, brief episodes where he gets very angry, upset and verbally abusive. The patient's appetite and sleep have improved. OBSERVATION: VITAL SIGNS: Temperature 97.3, blood pressure 129/62, pulse 75, respirations 20, O2 sat 97.1. Slept about 10 hours last night. MEDICATIONS: The patient's current medications include Risperdal 1 mg b.i.d., Remeron 30 mg at night, Zoloft 75 mg daily, Depakote ER 1500 mg at night. The patient is not having any side effects. ASSESSMENT: 1. Dementia, vascular with delusions. 2. Bipolar affective disorder. 3. Impulse control disorder, unspecified. PLAN: To continue with the treatment. The patient is planned to be discharged tomorrow to return to [facility]. TAMI PATTERSON MD DR: DEBBIE/rosalva JOB#: [id number] / [id number]
[2017-01-31 05:51] VITALS: BP 144/69
[2017-01-31] MEDS: COLESTIPOL HCL 1 GM TABLET PO SCH ×2 (07:00→19:30)
[2017-01-31] MEDS: METHYLDOPA 250 MG TABLET PO SCH ×2 (07:30→19:30)
[2017-01-31] MEDS: ALLOPURINOL 100 MG TABLET. PO SCH (07:30)
[2017-01-31] MEDS: TAMSULOSIN 0.4 MG CAP.ER.24H. PO SCH (07:30)
[2017-01-31] MEDS: LEVOTHYROXINE 25 MCG TABLET. PO SCH (07:30)
[2017-01-31] MEDS: SERTRALINE 50 MG TABLET. PO SCH (07:31)
[2017-01-31] MEDS: FERROUS SULFATE 325 MG TABLET. PO SCH (07:32)
[2017-01-31] MEDS: FINASTERIDE 5 MG TABLET PO SCH (07:32)
[2017-01-31] MEDS: FUROSEMIDE 40 MG TABLET PO SCH (07:32)
[2017-01-31] MEDS: PANTOPRAZOLE 40 MG TABLET. PO SCH (07:33)
[2017-01-31] MEDS: ASCORBIC ACID 500 MG TABLET PO SCH ×2 (07:33→19:29)
[2017-01-31] MEDS: hydrALAZINE 25 MG TABLET PO SCH ×3 (07:33→19:29)
[2017-01-31] MEDS: MULTIVITAMIN with MINERAL TABLET. PO SCH (07:34)
[2017-01-31] MEDS: risperiDONE 1 MG TABLET. PO SCH ×2 (07:34→19:29)
[2017-01-31 10:48] LABS: BASO # 0.1 x10^3/uL (0.0-0.2); BASO % 1 % (0-3); EOS # 0.2 x10^3/uL (0.0-0.7); EOS % 3 % (0-3); HEMATOCRIT 26.3 % (39.0-53.0); HEMOGLOBIN 8.6 g/dL (13.0-17.5); LYMPH # 0.9 x10^3/uL (1.0-4.8); LYMPH % 15 % (24-48); MEAN CORPUSCULAR HEMOGLOBIN 31 pg (25-35); MEAN CORPUSCULAR HGB CONC 33 g/dL (31-37); MEAN CORPUSCULAR VOLUME 95 fL (79-100); MONO # 0.5 x10^3/uL (0.0-1.1); MONO % 8 % (0-9); NEUT # 4.4 x10^3uL (1.8-7.7); NEUT % 74 % (31-73); PLATELET COUNT 255 x10^3/uL (140-400); RED BLOOD COUNT 2.77 x10^6/uL (4.30-5.70); RED CELL DISTRIBUTION WIDTH 20.5 % (11.5-14.5); WHITE BLOOD COUNT 5.9 x10^3/uL (4.0-11.0)
[2017-01-31 11:13] LABS: ALBUMIN 2.7 g/dL (3.4-5.0); ALBUMIN/GLOBULIN RATIO 0.9 (1.0-1.7); CALCIUM 8.6 mg/dL (8.5-10.1); CREATININE 2.5 mg/dL (0.7-1.3); GFR 24.6; POTASSIUM 4.6 mmol/L (3.5-5.1); TOTAL BILIRUBIN 0.4 mg/dL (0.2-1.0); TOTAL PROTEIN 5.8 g/dL (6.4-8.2)
[2017-01-31 12:16] LABS: ANISOCYTOSIS MOD; MICROCYTOSIS SLIGHT; PLT ESTIMATE ADEQUATE (ADEQUATE); SCHISTOCYTES OCC
[2017-01-31] MEDS: WARFARIN 3 MG TABLET. PO SCH (15:36)
[2017-01-31 16:03] VITALS: BP 141/62
[2017-01-31] MEDS: DIVALPROEX ER 500 MG TAB.ER.24H PO SCH (19:28)
[2017-01-31] MEDS: MIRTAZAPINE 30 MG TABLET PO SCH (19:29)
[2017-02-01 05:49] VITALS: BP 163/67
[2017-02-01] MEDS: COLESTIPOL HCL 1 GM TABLET PO SCH (07:00)
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
[2017-02-01] MEDS: MULTIVITAMIN with MINERAL TABLET. PO SCH (09:00)
[2017-02-01] MEDS: ASCORBIC ACID 500 MG TABLET PO SCH (09:00)
[2017-02-01] MEDS: hydrALAZINE 25 MG TABLET PO SCH ×2 (09:00→14:00)
[2017-02-01] MEDS: risperiDONE 1 MG TABLET. PO SCH (11:57)
[2017-02-01] MEDS: PANTOPRAZOLE 40 MG TABLET. PO SCH (11:57)
[2017-02-01] MEDS: FINASTERIDE 5 MG TABLET PO SCH (11:57)
[2017-02-01] MEDS: TAMSULOSIN 0.4 MG CAP.ER.24H. PO SCH (11:57)
[2017-02-01 11:58] VITALS: BP 163/67
[2017-02-01] MEDS: METHYLDOPA 250 MG TABLET PO SCH (11:58)
[2017-02-01] MEDS: ALLOPURINOL 100 MG TABLET. PO SCH (11:58)
[2017-02-01] MEDS: FERROUS SULFATE 325 MG TABLET. PO SCH (11:58)
[2017-02-01] MEDS: LEVOTHYROXINE 25 MCG TABLET. PO SCH (11:58)
[2017-02-01] MEDS: FUROSEMIDE 40 MG TABLET PO SCH (11:59)
[2017-02-01] MEDS: SERTRALINE 50 MG TABLET. PO SCH (11:59)
== END 2017-02-01 14:15 | DRG 884 ==
LOC: ER 08:18 → UNDOADMIN 09:23 → GEROPSY 09:23
PROVIDERS: ADMIT Psychiatry & Neurology Psychiatry; ATTEND Psychiatry & Neurology Psychiatry
DX: F01.51 Vascular dementia, unspecified severity, with behavioral disturbance (principal); E43 Unspecified severe protein-calorie malnutrition; I13.0 Hypertensive heart and chronic kidney disease with heart failure and stage 1 through stage 4 chronic kidney disease, or unspecified chronic kidney disease; L89.159 Pressure ulcer of sacral region, unspecified stage; E87.5 Hyperkalemia; I50.30 Unspecified diastolic (congestive) heart failure; F31.64 Bipolar disorder, current episode mixed, severe, with psychotic features; D64.9 Anemia, unspecified; Z68.24 Body mass index [BMI] 24.0-24.9, adult; E78.5 Hyperlipidemia, unspecified; E87.6 Hypokalemia; F41.9 Anxiety disorder, unspecified; F63.9 Impulse disorder, unspecified; L89.899 Pressure ulcer of other site, unspecified stage; M10.9 Gout, unspecified; G47.00 Insomnia, unspecified; M19.90 Unspecified osteoarthritis, unspecified site; N18.3 Chronic kidney disease, stage 3 (moderate); N40.0 Benign prostatic hyperplasia without lower urinary tract symptoms; Z66 Do not resuscitate; Z79.01 Long term (current) use of anticoagulants; Z79.899 Other long term (current) drug therapy; Z86.718 Personal history of other venous thrombosis and embolism
CPT/HCPCS: 36415; 71010; 73120; 80053; 80061; 80164; 81001; 81003; 82274; 82306; 82607; 83036; 83540; 83550; 83735; 84436; 84443; 84480; 85025; 85027; 85610; 86592; 86593; 87086; 90686; 93005; 96360; J7040; 99285-25